=== PATIENT | female | born 1945 | race Two or more races ===

== ENCOUNTER 2019-11-21 22:49 | Inpatient (IN) | payer MEDICARE, MEDICAID ==
[~2019-11-21] VITALS: Ht 152.4 cm; Wt 68.8 kg
[2019-11-21 23:05] VITALS: BP 141/49
--- NOTE | 2019-11-21 23:05 | NUR ---
ED Nurse Note: pt walked into ED from home c/o chest pressure, pt denies chest pain and states feeling "generaly ill" since this morning. Pt stated she had a fever this morning at home. Pt is AAOx4, breathing even and unlabored, vital signs stable as documented.
[2019-11-21] MEDS ORDERED: Aspirin Baby 81mg ORAL ONE (23:15)
--- NOTE | 2019-11-21 23:20 | NUR ---
ED Nurse Note: blood sent to lab
[2019-11-21 23:50] LABS: BASOPHILS % (AUTO) 0.8 % (0.0-2.0); EOSINOPHILS % (AUTO) 1.5 % (0.0-3.0); HEMATOCRIT 26.1 % (37.0-47.0); HEMOGLOBIN 9.2 G/DL (12.0-16.0); LYMPHOCYTES % (AUTO) 8.8 % (20.0-45.0); MEAN CORPUSCULAR VOLUME 89 FL (80-99); MONOCYTES % (AUTO) 7.9 % (1.0-10.0); PLATELET COUNT 221 K/UL (150-450); RED BLOOD COUNT 2.92 M/UL (4.20-5.40); RED CELL DISTRIBUTION WIDTH 12.7 % (11.6-14.8); WHITE BLOOD COUNT 10.6 K/UL (4.8-10.8)
[2019-11-22 00:01] LABS: CALCIUM 8.7 MG/DL (8.5-10.1); CREATININE 2.4 MG/DL (0.55-1.30); POTASSIUM 4.8 MMOL/L (3.5-5.1)
[2019-11-22 00:05] LABS: ALBUMIN 3.5 G/DL (3.4-5.0); ALBUMIN/GLOBULIN RATIO 0.8 (1.0-2.7); BILIRUBIN,TOTAL 0.6 MG/DL (0.2-1.0)
--- NOTE | 2019-11-22 01:41 | Emergency Room Report ---
History of Present Illness General Chief Complaint: General Complaint Source: Patient Present Illness HPI 74-year-old female with 2 days of substernal chest discomfort. Pain is worse on exertion. Located in substernal region, does not otherwise radiate. Patient says "my chest feels hot." No sick contacts. No fevers, chills, palpitations, back pain, abdominal pain, nausea, vomiting, diarrhea, dysuria. Pain is sharp in nature. 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 COVID-19 Screening: Negative COVID-19 COVID-19 Testing Source: kerri Patient History Now: No Nursing Documentation-[facility] Past Medical History: No History, Except For Hx Hypertension: Yes Hx Diabetes: Yes Review of Systems All Other Systems: negative except mentioned in HPI Physical Exam Vital Signs Date Time Temp Pulse Resp B/P (MAP) Pulse Ox O2 Delivery O2 Flow Rate FiO2 11/21/19 23:01 97.2 72 18 134/53 (80) 90 Room Air Sp02 EP Interpretation: reviewed, normal General Appearance: no apparent distress, alert, GCS 15, non-toxic Head: normocephalic, atraumatic Eyes: bilateral eye normal inspection, bilateral eye PERRL ENT: hearing grossly normal, normal pharynx, no angioedema, normal voice Neck: full range of motion, supple/symm/no masses Respiratory: chest non-tender, lungs clear, normal breath sounds, speaking full sentences Cardiovascular #1: regular rate, rhythm, no edema Cardiovascular #2: 2+ carotid (R), 2+ carotid (L), 2+ radial (R), 2+ radial (L), 2+ dorsalis pedis (R), 2+ dorsalis pedis (L) Gastrointestinal: normal bowel sounds, non tender, soft, non-distended, no guarding, no rebound Rectal: deferred Genitourinary: normal inspection, no CVA tenderness Musculoskeletal: back normal, normal range of motion, calf tenderness, gait/station normal, non-tender Neurologic: alert, motor strength/tone normal, oriented x3, sensory intact, responsive, speech normal Psychiatric: judgement/insight normal, memory normal, mood/affect normal, no suicidal/homicidal ideation Reflexes: 3+ bicep (R), 3+ bicep (L), 3+ tricep (R), 3+ tricep (L), 3+ knee (R), 3+ knee (L) Lymphatic: no adenopathy Medical Decision Making Diagnostic Impression: Primary Impression: Chest pain Additional Impression: NIKI (acute kidney injury) ER Course EKG: NSR, no ischemia, intervals WNL. No ectopy Rhythm strip: patient monitored for arrhythmias - no malignant dysrhythmias, runs of PVCs, nor pauses noted Chest x-ray: No infiltrate/effusion. Mediastinum within normal limits. Indication chest pain Laboratory Tests Test 11/21/19 23:20 White Blood Count 10.6 K/UL (4.8-10.8) Red Blood Count 2.92 M/UL (4.20-5.40) L Hemoglobin 9.2 G/DL (12.0-16.0) L Hematocrit 26.1 % (37.0-47.0) L Mean Corpuscular Volume 89 FL (80-99) Mean Corpuscular Hemoglobin 31.6 PG (27.0-31.0) H Mean Corpuscular Hemoglobin Concent 35.4 G/DL (32.0-36.0) Red Cell Distribution Width 12.7 % (11.6-14.8) Platelet Count 221 K/UL (150-450) Mean Platelet Volume 6.2 FL (6.5-10.1) L Neutrophils (%) (Auto) 81.0 % (45.0-75.0) H Lymphocytes (%) (Auto) 8.8 % (20.0-45.0) L Monocytes (%) (Auto) 7.9 % (1.0-10.0) Eosinophils (%) (Auto) 1.5 % (0.0-3.0) Basophils (%) (Auto) 0.8 % (0.0-2.0) Sodium Level 138 MMOL/L (136-145) Potassium Level 4.8 MMOL/L (3.5-5.1) Chloride Level 105 MMOL/L (98-107) Carbon Dioxide Level 19 MMOL/L (21-32) L Anion Gap 14 mmol/L (5-15) Blood Urea Nitrogen 48 mg/dL (7-18) H Creatinine 2.4 MG/DL (0.55-1.30) H Estimated Glomerular Filtration Rate 19.7 mL/min (>60) Glucose Level 228 MG/DL (74-106) H Calcium Level 8.7 MG/DL (8.5-10.1) Total Bilirubin 0.6 MG/DL (0.2-1.0) Aspartate Amino Transferase (AST) 16 U/L (15-37) Alanine Aminotransferase (ALT) 16 U/L (12-78) Alkaline Phosphatase 98 U/L (46-116) Troponin I 0.000 ng/mL (0.000-0.056) Total Protein 7.7 G/DL (6.4-8.2) Albumin 3.5 G/DL (3.4-5.0) Globulin 4.2 g/dL Albumin/Globulin Ratio 0.8 (1.0-2.7) L Microbiology Date/Time Source Procedure Growth Status 11/21/19 23:30 Nasopharynx SARS-CoV-2 RdRp Gene Assay - Final Complete 74-year-old female here with chest discomfort. Patient had evidence of acute kidney injury on her CMP. Creatinine was elevated 2.4, and patient was unaware of what her normal baseline creatinine level is. Last lab result in this medical record system was from 7 years ago, and at that time the patient had normal BUN and creatinine. Electrolytes largely unremarkable. Troponin negative. EKG normal. Chest x-ray unremarkable. Patient was given aspirin in the emergency department. She was given gentle fluid hydration at 100 cc/h. Patient admitted to telemetry in stable condition. Last Vital Signs Date Time Temp Pulse Resp B/P (MAP) Pulse Ox O2 Delivery O2 Flow Rate FiO2 11/21/19 23:05 68 20 11/21/19 23:05 98.7 141/49 100 Room Air Referrals: Morro Rodríguez MD (PCP) Rudolph Capone M.D. Nov 22, 2019 01:41
[2019-11-22 02:03] VITALS: BP 138/48
--- NOTE | 2019-11-22 02:03 | NUR ---
ED Nurse Note: pt resting in bed with eyes closed, no acute distress noted. Breathing even and unlabored, vital signs stable.
--- NOTE | 2019-11-22 02:09 | NUR ---
ED Nurse Note: attempted to call manufacturing technology analyst for CXR, no answer. Charge nurse aware.
[2019-11-22] MEDS ORDERED: Azithromycin 500 MG in NS 275 ML IV ONE (02:15)
[2019-11-22] MEDS ORDERED: cefTRIAXone 1 GM in NS 55 ML IVPB ONE (02:15)
--- NOTE | 2019-11-22 02:46 | NUR ---
ED Nurse Note: cultures and urine sent to lab
[2019-11-22] MEDS ORDERED: GLIPIZIDE5 MG ORAL (02:55)
[2019-11-22] MEDS ORDERED: HYDRALAZINE HC100 MG ORAL (02:55)
[2019-11-22] MEDS ORDERED: GLIMEPIRIDE4 MG ORAL (02:55)
[2019-11-22] MEDS ORDERED: MULTIVITAMINS1 EAC2 ORAL (02:55)
[2019-11-22] MEDS ORDERED: JANUVIA25 MG ORAL (02:55)
[2019-11-22] MEDS ORDERED: STARLIX60 MG ORAL (02:55)
[2019-11-22] MEDS ORDERED: VITAMIN C500 M1 ORAL (02:55)
[2019-11-22] MEDS ORDERED: CALCIUM 500 +1 EAC5 PO (02:55)
[2019-11-22] MEDS ORDERED: AMLODIPINE BESYL5 MG ORAL (02:55)
--- NOTE | 2019-11-22 03:13 | NUR ---
ED Nurse Note: Report given to DARIUS Mcguire in 2E.
--- NOTE | 2019-11-22 03:40 | NUR ---
ED Nurse Note: pt transported to 2E in stable condition, accompanied by Jackie, RN and Jael RN.
[2019-11-22 03:45] VITALS: BP 139/56
--- NOTE | 2019-11-22 03:45 | NUR ---
NURSE NOTES: Report received from Jael ED RN. Patient was able to walk to the bathroom with assistance when she was brought to the. Patient is alert and oriented x4 is Belarusian speaking only and is able to make need known. Patient is in stable condition, no acute distress noted at this time. Patient is reporting discomfort of the chest. IV site it left AC 20G S/L at this time; patent and flushed. No bleed or erythema noted. Patient is sating 95% on room air. Patient was placed on the 5 lead manager monitoring and is running Sinus Rhythm at this time. Patient needs assistants when walking but is able to use the bathroom. Placed patient of fall precautions: yellow socks and gown, bed in lowest position, bed is locked. Bed alarm is on. belonging and call light with in reach. Patient educated to use call light for assistance and before getting up. Will call Dr. Rodríguez for admission orders. Will continue to monitor patient.
[2019-11-22] MEDS ORDERED: ASPIRIN EC500 M1 ORAL (04:15)
--- NOTE | 2019-11-22 04:27 | NUR ---
NURSE NOTES: Left message for Dr. Rodríguez requesting admission order. Awaiting call back. Will continue to monitor patient.
--- NOTE | 2019-11-22 04:55 | NUR ---
NURSE NOTES: Left second message for Dr. Rodríguez requesting admission order. Awaiting call back. Will continue to monitor patient. Addendum: 11/22/19 at 0548 by Shayla Pope RN Wrong time stamp.
--- NOTE | 2019-11-22 05:47 | NUR ---
NURSE NOTES: Left second message for Dr. Rodríguez requesting admission order. Awaiting call back. Will continue to monitor patient.
--- NOTE | 2019-11-22 06:50 | NUR ---
NURSE NOTES: Left 3rd message for Dr. Rodríguez requesting admission order. Awaiting call back. Will continue to monitor patient.
--- NOTE | 2019-11-22 07:30 | NUR ---
NURSE NOTES: pt in bed awake and alert, no complains of chest pain in room air. pt is eating. pt is on ticket manager no signs of cardiac or respiratory distress at this time. Bed is locked and in lowest position. call light next to pt. will continuer to monitor pt.
--- NOTE | 2019-11-22 07:30 | NUR ---
NURSE NOTES: Admission orders received from Dr. Rodríguez. Noted and cared out.
--- NOTE | 2019-11-22 07:45 | NUR ---
NURSE HAND-OFF REPORT: Important Events on Shift: Patient was admitted to [facility] for chest pain. Patient Status: Stable Diet: Cardiac/ diabetic ([facility]) Pending Orders: Pending Results/Labs: Pending MD notification: Latest Vital Signs: Temperature 97.7 , Pulse 67 , B/P 139 /56 , Respiratory Rate 16 , O2 SAT 95 , Room Air, O2 Flow Rate . Vital Sign Comment: EKG Rhythm: Sinus Rhythm Rhythm change?: N MD Notified?: N - MD Response: Latest Santiago Fall Score: 45 Fall Risk: High Risk Safety Measures: Call light Within Reach, Bed Alarm Zone 2, Side Rails Side Rails x2, Bed position Low and Locked. Fall Precautions: Yellow Socks Yellow Gown Door Sign Patient Fall Education Report given to Hermila MCCOY .
[2019-11-22 08:00] VITALS: BP 144/56
--- NOTE | 2019-11-22 08:06 | NUR ---
NURSE HAND-OFF REPORT: Important Events on Shift: Patient was admitted to [facility] for chest pain. Patient Status: Stable Diet: Cardiac/ diabetic Pending Orders: Pending Results/Labs: Pending MD notification: Latest Vital Signs: Temperature 97.7 , Pulse 67 , B/P 139 /56 , Respiratory Rate 16 , O2 SAT 95 , Room Air, O2 Flow Rate . Vital Sign Comment: EKG Rhythm: Sinus Rhythm Rhythm change?: N MD Notified?: N - MD Response: Latest Santiago Fall Score: 45 Fall Risk: High Risk Safety Measures: Call light Within Reach, Bed Alarm Zone 2, Side Rails Side Rails x2, Bed position Low and Locked. Fall Precautions: Yellow Socks Yellow Gown Door Sign Patient Fall Education Report given to . Addendum: 11/22/19 at 0811 by Shayla Pope RN Wrong time.
[2019-11-22] MEDS ORDERED: Tylenol #3 tab (300mg/30mg) ORAL PRN (08:30)
[2019-11-22] MEDS: Glimepiride 4mg tab ORAL SCH ×2 (10:15→18:45)
[2019-11-22] MEDS: sitaGLIPtin 25mg tab ORAL SCH (10:16)
[2019-11-22] MEDS: Heparin 5000 units/ml inj SUBQ SCH ×2 (10:17→22:24)
--- NOTE | 2019-11-22 10:45 | Consultation ---
Consult Note Consult Note Asked to evaluate the patient at the request of Dr. Rodríguez for renal failure 74-year-old female with 2 days of substernal chest discomfort. Pain is worse on exertion. Located in substernal region, does not otherwise radiate. Patient says "my chest feels hot." No sick contacts. No fevers, chills, palpitations, back pain, abdominal pain, nausea, vomiting, diarrhea, dysuria. Pain is sharp in nature. 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 NECK: Supple. No jugular venous distention. LUNGS: Clear to auscultation and percussion. CARDIAC: S1 is normal. S2 is normal. Regular rate and rhythm. No heaves, thrills, gallops, or rubs are noted. ABDOMEN: Soft. There is some tenderness to deep palpation in the epigastric area. No guarding. No rigidity. No rebound tenderness. EXTREMITIES: There is no edema. NEUROLOGICAL: She is awake, alert, responsive. LABORATORY AND DIAGNOSTIC DATA: White count was 10.6, up to 11.3; hemoglobin of 9.2, down to 9.0; and platelet count of 221, down to 213. Moderate normocytic normochromic anemia that is what the pathologist read. Sedimentation rate was 126, retic count of 1. Sodium was 138, potassium 4.8, chloride 105, bicarb 19, BUN of 48, creatinine 2.4, and glucose of 228. All 3 sets of cardiac enzymes since admission have been negative. ProBNP of 1600. Total protein is 7.7, albumin of 3.5. Coags, INR 1 and PTT of 37. Urinalysis is suggestive of too numerous to count wbc's and 0 to 2 rbcs, 2+ leukocyte esterase, and sodium of 94. INR 1, PTT of 37. A chest x-ray performed in the emergency room on the 6th showed cardiomegaly, bilateral right greater than left interstitial and intersperse edema versus infiltrate. Renal ultrasound was performed showed essentially unremarkable examination and an echocardiogram that was performed showed normal wall motion, ejection fraction of 60%, and moderate to severe mitral annular calcifications, aortic root calcification, mild mitral regurgitation, peak mitral valve gradient of 25 and mean of 7, and pulmonary systolic pressure of 57. . Assessment/Plan Renal failure, most likely acute on chronic Rule out diabetic nephropathy Diabetes mellitus Coronary artery disease Anemia, related to kidney disease and or iron deficiency Kidney ultrasound Urine analysis Urine spot electrolyte Anemia work-up Monitor renal parameters Avoid nephrotoxic's Austin Malone MD Nov 22, 2019 10:45
--- NOTE | 2019-11-22 11:13 | Consultation ---
History of Present Illness General Date patient seen: Nov 22, 2019 Chief Complaint: General Complaint Present Illness HPI 74-year-old female with PMHx of DM, HTN, CHF presented to ER with CC of 2 days of substernal chest discomfort, worse on exertion, substernal region, does not otherwise radiate. Patient says "my chest feels hot." No sick contacts. She was afebrile in ER, her CXR showed interstitial infiltrate at RLL with cardiomegaly. She is admitted to telemetry for further management. Allergies: Coded Allergies: No Known Allergies (Unverified , 11/21/19) Medication History Scheduled Amlodipine Besylate* (Amlodipine Besylate*), 5 MG ORAL DAILY, (Reported) Ascorbic Acid* (Vitamin C*), 1,000 MG ORAL DAILY, (Reported) Aspirin (Aspirin Ec), 81 MG ORAL DAILY, (Reported) Glimepiride* (Glimepiride*), 4 MG ORAL BID, (Reported) Glipizide* (Glipizide*), 5 MG ORAL BIDAC, (Reported) Hydralazine Hcl* (Hydralazine Hcl*), 100 MG ORAL TID, (Reported) Multivitamins* (Multivitamins*), 1 TAB ORAL DAILY, (Reported) Nateglinide* (Starlix*), 120 MG ORAL THREE TIMES A DAY, (Reported) Sitagliptin* (Januvia*), 50 MG ORAL DAILY, (Reported) Miscellaneous Medications Calcium Carbonate/Vitamin D3 (Calcium 500 + Vit D 200 Tablet), 1 EACH PO, (Reported) Patient History Healthcare decision maker Resuscitation status Advanced Directive on File Past Medical/Surgical History Past Medical/Surgical History: (1) History of hypertension (2) History of diabetes mellitus Review of Systems Cardiovascular: Reports: chest pain All Other Systems: negative except mentioned in HPI Physical Exam General Appearance: WD/WN Lines, tubes and drains: peripheral HEENT: normocephalic, atraumatic Neck: non-tender, normal alignment, supple, normal inspection Respiratory/Chest: chest wall non-tender, lungs clear, normal breath sounds, rhonchi - right Breasts: no masses Cardiovascular/Chest: normal peripheral pulses, normal rate, regularly irregular Abdomen: normal bowel sounds, non tender Genitourinary/Rectal: normal genital exam, normal rectal exam Extremities: normal range of motion, non-tender, normal inspection Neurologic: patient intake representative II-XII grossly normal Last 24 Hour Vital Signs Date Time Temp Pulse Resp B/P (MAP) Pulse Ox O2 Delivery O2 Flow Rate FiO2 11/22/19 10:16 77 144/56 11/22/19 08:00 96.8 77 21 144/56 (85) 97 11/22/19 08:00 75 11/22/19 04:30 Room Air 11/22/19 03:45 97.7 67 16 139/56 (83) 95 11/22/19 03:45 67 11/22/19 03:40 98.7 74 18 141/68 100 Room Air 11/22/19 02:03 98.1 76 18 138/48 100 Room Air 11/21/19 23:05 68 20 11/21/19 23:05 98.7 68 16 141/49 100 Room Air 11/21/19 23:01 97.2 72 18 134/53 (80) 90 Room Air Intake and Output 11/21/19 11/22/19 19:00 07:00 Intake Total 100 ml Balance 100 ml Intake IV Total 100 ml # Voids 3 Laboratory Tests Test 11/21/19 23:20 11/22/19 02:11 White Blood Count 10.6 K/UL (4.8-10.8) Red Blood Count 2.92 M/UL (4.20-5.40) L Hemoglobin 9.2 G/DL (12.0-16.0) L Hematocrit 26.1 % (37.0-47.0) L Mean Corpuscular Volume 89 FL (80-99) Mean Corpuscular Hemoglobin 31.6 PG (27.0-31.0) H Mean Corpuscular Hemoglobin Concent 35.4 G/DL (32.0-36.0) Red Cell Distribution Width 12.7 % (11.6-14.8) Platelet Count 221 K/UL (150-450) Mean Platelet Volume 6.2 FL (6.5-10.1) L Neutrophils (%) (Auto) 81.0 % (45.0-75.0) H Lymphocytes (%) (Auto) 8.8 % (20.0-45.0) L Monocytes (%) (Auto) 7.9 % (1.0-10.0) Eosinophils (%) (Auto) 1.5 % (0.0-3.0) Basophils (%) (Auto) 0.8 % (0.0-2.0) Sodium Level 138 MMOL/L (136-145) Potassium Level 4.8 MMOL/L (3.5-5.1) Chloride Level 105 MMOL/L (98-107) Carbon Dioxide Level 19 MMOL/L (21-32) L Anion Gap 14 mmol/L (5-15) Blood Urea Nitrogen 48 mg/dL (7-18) H Creatinine 2.4 MG/DL (0.55-1.30) H Estimat Glomerular Filtration Rate 19.7 mL/min (>60) Glucose Level 228 MG/DL (74-106) H Calcium Level 8.7 MG/DL (8.5-10.1) Total Bilirubin 0.6 MG/DL (0.2-1.0) Aspartate Amino Transf (AST/SGOT) 16 U/L (15-37) Alanine Aminotransferase (ALT/SGPT) 16 U/L (12-78) Alkaline Phosphatase 98 U/L (46-116) Troponin I 0.000 ng/mL (0.000-0.056) Total Protein 7.7 G/DL (6.4-8.2) Albumin 3.5 G/DL (3.4-5.0) Globulin 4.2 g/dL Albumin/Globulin Ratio 0.8 (1.0-2.7) L Pro-B-Type Natriuretic Peptide 66042 pg/mL (0-125) H Microbiology Date/Time Source Procedure Growth Status 11/21/19 23:30 Nasopharynx SARS-CoV-2 RdRp Gene Assay - Final Complete Height (Feet): 5 Height (Inches): 0.00 Weight (Pounds): 145 Medications Current Medications Medications (Trade) Dose Ordered Sig/Rosetta Route PRN Reason Start Time Stop Time Status Last Admin Dose Admin Acetaminophen (Tylenol) 650 mg Q4H PRN ORAL Mild Pain(Pain Scale 1-3)fever 11/22/19 08:30 12/22/19 08:29 Acetaminophen/ Codeine Phosphate (Tylenol #3) 1 tab Q6H PRN ORAL Severe Pain (Pain Scale 7-10) 11/22/19 08:30 11/29/19 08:29 11/22/19 10:25 Amlodipine Besylate (Norvasc) 5 mg DAILY ORAL 11/22/19 09:00 12/22/19 08:59 11/22/19 10:16 Azithromycin (Zithromax) 250 mg QHS ORAL 11/22/19 21:00 11/29/19 20:59 Ceftriaxone Sodium 1 gm/ Sodium Chloride 50 ml @ 100 mls/hr QHS IVPB 11/22/19 21:00 11/29/19 20:59 Dextrose (Dextrose 50%) 25 ml Q30M PRN IV Hypoglycemia 11/22/19 08:30 02/20/20 08:29 Dextrose (Dextrose 50%) 50 ml Q30M PRN IV Hypoglycemia 11/22/19 08:30 02/20/20 08:29 Glimepiride (AmaryL) 4 mg BID ORAL 11/22/19 09:00 12/22/19 08:59 11/22/19 10:15 Glipizide (Glucotrol) 5 mg BIAC ORAL 11/22/19 11:30 12/22/19 11:29 Heparin Sodium (Porcine) (Heparin 5000 units/ml) 5,000 units EVERY 12 HOURS SUBQ 11/22/19 09:00 01/06/20 08:59 11/22/19 10:17 Hydralazine HCl (Apresoline) 50 mg Q8HR ORAL 11/22/19 14:00 02/20/20 13:59 Insulin Aspart (NovoLOG) BEFORE MEALS AND HS SUBQ 11/22/19 11:30 02/20/20 11:29 Nateglinide (Starlix) 120 mg TIAC ORAL 11/22/19 11:30 12/22/19 11:29 Ondansetron HCl (Zofran) 4 mg Q4H PRN IVP Nausea & Vomiting 11/22/19 08:30 12/22/19 08:29 Sitagliptin Phosphate (Januvia) 25 mg DAILY ORAL 11/22/19 09:00 12/22/19 08:59 11/22/19 10:16 Sodium Chloride 1,000 ml @ 100 mls/hr Q10H IV 11/22/19 01:45 12/22/19 01:44 11/22/19 01:46 Assessment/Plan Problem List: (1) ACS (acute coronary syndrome) ICD Codes: I24.9 - Acute ischemic heart disease, unspecified SNOMED: 293097365 (2) Community acquired pneumonia ICD Codes: J18.9 - Pneumonia, unspecified organism SNOMED: 917633060 (3) Acute on chronic renal insufficiency ICD Codes: N28.9 - Disorder of kidney and ureter, unspecified; N18.9 - Chronic kidney disease, unspecified SNOMED: 949330536, 902528787 (4) History of hypertension ICD Codes: Z86.79 - Personal history of other diseases of the circulatory system SNOMED: 415377397 (5) History of diabetes mellitus ICD Codes: Z86.39 - Personal history of other endocrine, nutritional and metabolic disease SNOMED: 760277921 Assessment/Plan: serial ekg, troponin Echocardiogram cardiology to see sputum induction titrate fio2 to sat of 92% antitussives symptomatic treatment sliding scale diabetic diet Rodrigo Marroquin MD Nov 22, 2019 11:13
[2019-11-22] MEDS ORDERED: Promethazine/Codeine 5ml UD ORAL PRN (11:15)
[2019-11-22 12:00] VITALS: BP 160/62
--- NOTE | 2019-11-22 12:11 | History & Physical ---
History and Physical History & Physicial Dictated for Int Med-D [facility] no. [id number]. Tony Reyes MD Nov 22, 2019 12:11
--- NOTE | 2019-11-22 12:18 | Consultation ---
History of Present Illness General Date patient seen: Nov 22, 2019 Chief Complaint: General Complaint Present Illness HPI 74 y/o F with hx of DM2, HTN, CHF, CAD presented to ED on 11/20 with 2 days of substernal chest pain worse with exertion (non radiating). Had subjective fever and sore throat at home. Denied sick contacts, f/c, back pain, abd pain, n/v/d, dysuria. Allergies: Coded Allergies: No Known Allergies (Unverified , 11/21/19) Medication History Scheduled Amlodipine Besylate* (Amlodipine Besylate*), 5 MG ORAL DAILY, (Reported) Ascorbic Acid* (Vitamin C*), 1,000 MG ORAL DAILY, (Reported) Aspirin (Aspirin Ec), 81 MG ORAL DAILY, (Reported) Glimepiride* (Glimepiride*), 4 MG ORAL BID, (Reported) Glipizide* (Glipizide*), 5 MG ORAL BIDAC, (Reported) Hydralazine Hcl* (Hydralazine Hcl*), 100 MG ORAL TID, (Reported) Multivitamins* (Multivitamins*), 1 TAB ORAL DAILY, (Reported) Nateglinide* (Starlix*), 120 MG ORAL THREE TIMES A DAY, (Reported) Sitagliptin* (Januvia*), 50 MG ORAL DAILY, (Reported) Miscellaneous Medications Calcium Carbonate/Vitamin D3 (Calcium 500 + Vit D 200 Tablet), 1 EACH PO, (Reported) Patient History Healthcare decision maker Resuscitation status Advanced Directive on File Patient History Narrative Pmhx: as above Shx: reviewed Fhx: non contributory Physical Exam Physical Exam Narrative General Appearance: WD/WN Lines, tubes and drains: peripheral HEENT: normocephalic, atraumatic Neck: non-tender, normal alignment, supple, normal inspection Respiratory/Chest: chest wall non-tender, lungs clear, normal breath sounds, rhonchi - right Cardiovascular/Chest: normal peripheral pulses, normal rate, regularly irregular Abdomen: normal bowel sounds, non tender Last 24 Hour Vital Signs Date Time Temp Pulse Resp B/P (MAP) Pulse Ox O2 Delivery O2 Flow Rate FiO2 11/22/19 10:16 77 144/56 11/22/19 08:00 96.8 77 21 144/56 (85) 97 11/22/19 08:00 75 11/22/19 04:30 Room Air 11/22/19 03:45 97.7 67 16 139/56 (83) 95 11/22/19 03:45 67 11/22/19 03:40 98.7 74 18 141/68 100 Room Air 11/22/19 02:03 98.1 76 18 138/48 100 Room Air 11/21/19 23:05 68 20 11/21/19 23:05 98.7 68 16 141/49 100 Room Air 11/21/19 23:01 97.2 72 18 134/53 (80) 90 Room Air Intake and Output 11/21/19 11/22/19 19:00 07:00 Intake Total 100 ml Balance 100 ml Intake IV Total 100 ml # Voids 3 Laboratory Tests Test 11/21/19 23:20 11/22/19 02:11 White Blood Count 10.6 K/UL (4.8-10.8) Red Blood Count 2.92 M/UL (4.20-5.40) L Hemoglobin 9.2 G/DL (12.0-16.0) L Hematocrit 26.1 % (37.0-47.0) L Mean Corpuscular Volume 89 FL (80-99) Mean Corpuscular Hemoglobin 31.6 PG (27.0-31.0) H Mean Corpuscular Hemoglobin Concent 35.4 G/DL (32.0-36.0) Red Cell Distribution Width 12.7 % (11.6-14.8) Platelet Count 221 K/UL (150-450) Mean Platelet Volume 6.2 FL (6.5-10.1) L Neutrophils (%) (Auto) 81.0 % (45.0-75.0) H Lymphocytes (%) (Auto) 8.8 % (20.0-45.0) L Monocytes (%) (Auto) 7.9 % (1.0-10.0) Eosinophils (%) (Auto) 1.5 % (0.0-3.0) Basophils (%) (Auto) 0.8 % (0.0-2.0) Sodium Level 138 MMOL/L (136-145) Potassium Level 4.8 MMOL/L (3.5-5.1) Chloride Level 105 MMOL/L (98-107) Carbon Dioxide Level 19 MMOL/L (21-32) L Anion Gap 14 mmol/L (5-15) Blood Urea Nitrogen 48 mg/dL (7-18) H Creatinine 2.4 MG/DL (0.55-1.30) H Estimat Glomerular Filtration Rate 19.7 mL/min (>60) Glucose Level 228 MG/DL (74-106) H Calcium Level 8.7 MG/DL (8.5-10.1) Total Bilirubin 0.6 MG/DL (0.2-1.0) Aspartate Amino Transf (AST/SGOT) 16 U/L (15-37) Alanine Aminotransferase (ALT/SGPT) 16 U/L (12-78) Alkaline Phosphatase 98 U/L (46-116) Troponin I 0.000 ng/mL (0.000-0.056) Total Protein 7.7 G/DL (6.4-8.2) Albumin 3.5 G/DL (3.4-5.0) Globulin 4.2 g/dL Albumin/Globulin Ratio 0.8 (1.0-2.7) L Pro-B-Type Natriuretic Peptide 98914 pg/mL (0-125) H Microbiology Date/Time Source Procedure Growth Status 11/21/19 23:30 Nasopharynx SARS-CoV-2 RdRp Gene Assay - Final Complete Height (Feet): 5 Height (Inches): 0.00 Weight (Pounds): 145 Medications Current Medications Medications (Trade) Dose Ordered Sig/Rosetta Route PRN Reason Start Time Stop Time Status Last Admin Dose Admin Acetaminophen (Tylenol) 650 mg Q4H PRN ORAL Mild Pain(Pain Scale 1-3)fever 11/22/19 08:30 12/22/19 08:29 Acetaminophen/ Codeine Phosphate (Tylenol #3) 1 tab Q6H PRN ORAL Severe Pain (Pain Scale 7-10) 11/22/19 08:30 11/29/19 08:29 11/22/19 10:25 Amlodipine Besylate (Norvasc) 5 mg DAILY ORAL 11/22/19 09:00 12/22/19 08:59 11/22/19 10:16 Azithromycin (Zithromax) 250 mg QHS ORAL 11/22/19 21:00 11/29/19 20:59 Ceftriaxone Sodium 1 gm/ Sodium Chloride 50 ml @ 100 mls/hr QHS IVPB 11/22/19 21:00 11/29/19 20:59 Dextrose (Dextrose 50%) 25 ml Q30M PRN IV Hypoglycemia 11/22/19 08:30 02/20/20 08:29 Dextrose (Dextrose 50%) 50 ml Q30M PRN IV Hypoglycemia 11/22/19 08:30 02/20/20 08:29 Glimepiride (AmaryL) 4 mg BID ORAL 11/22/19 09:00 12/22/19 08:59 11/22/19 10:15 Glipizide (Glucotrol) 5 mg BIAC ORAL 11/22/19 11:30 12/22/19 11:29 Heparin Sodium (Porcine) (Heparin 5000 units/ml) 5,000 units EVERY 12 HOURS SUBQ 11/22/19 09:00 01/06/20 08:59 11/22/19 10:17 Hydralazine HCl (Apresoline) 50 mg Q8HR ORAL 11/22/19 14:00 02/20/20 13:59 Insulin Aspart (NovoLOG) BEFORE MEALS AND HS SUBQ 11/22/19 11:30 02/20/20 11:29 Nateglinide (Starlix) 120 mg TIAC ORAL 11/22/19 11:30 12/22/19 11:29 Ondansetron HCl (Zofran) 4 mg Q4H PRN IVP Nausea & Vomiting 11/22/19 08:30 12/22/19 08:29 Promethazine HCl/ Codeine (Phenergan with Codeine) 5 ml Q4H PRN ORAL For Cough 11/22/19 11:15 12/22/19 11:14 Sitagliptin Phosphate (Januvia) 25 mg DAILY ORAL 11/22/19 09:00 12/22/19 08:59 11/22/19 10:16 Assessment/Plan Assessment/Plan: Abx: Ceftriaxone 11/21- Azithromycin 11/21- Assessment: COVID19 neg x1 (11/20 Rapid COVID PCR neg) CAP -11/20 CXR: per ER report, official report is pending: right lower lobe infiltrate versus possible pulmonary vascular congestion Afebrile No leukocytosis Chest pain NIKI DM2 HTN CHF CAD Plan: -Continue empiric Ceftriaxone and Azithromycin #1 -f/u cx -Monitor CBC/CMP, temperatures -COVID19 isolation and testing; send 2nd covid test -f.u official CXR report Thank you for this consultation. Will continue to follow along with you. Discussed with DARIUS. Hortensia Hoffman M.D. Nov 22, 2019 12:18
[2019-11-22] MEDS: GlipiZIDE 5mg tab ORAL SCH ×2 (12:31→16:57)
[2019-11-22] MEDS: NovoLOG Insulin Flexpen SUBQ SCH ×3 (12:32→22:26)
--- NOTE | 2019-11-22 13:00 | History and Physical Report ---
DATE OF ADMISSION: 11/22/2019 CHIEF COMPLAINT: The patient is a 74-year-old female, who presents with a chief complaint of chest pain. HISTORY OF PRESENT ILLNESS: Began two days prior to admission. The patient began to experience chest pain. Chest pain is substernal. The patient states her chest "feels hot." The patient presented through [facility] emergency room. The patient was found to be in acute renal failure. The patient's BNP was found to be elevated greater than 16,000. The patient is admitted with chest pain to rule out acute coronary syndrome. REVIEW OF SYSTEMS: CONSTITUTIONAL: The patient denies weight loss or weight gain. The patient denies fevers or chills. HEENT: The patient denies ear or throat pain. The patient denies headache. CARDIOVASCULAR: The patient complains of chest pain as above. The patient denies palpitations. ABDOMEN: The patient denies nausea, vomiting, diarrhea, or constipation. GENITOURINARY: The patient denies dysuria or increased frequency of urination. NEUROMUSCULAR: The patient denies seizures or generalized weakness. PAST MEDICAL HISTORY: Significant for: 1. Hypertension. 2. Diabetes type 2. PAST SURGICAL HISTORY: The patient denies. CURRENT MEDICATIONS: 1. Amlodipine 5 mg one tablet p.o. daily. 2. Vitamin C 1000 mg p.o. daily. 3. Aspirin 81 mg p.o. daily. 4. Calcium plus vitamin D one tablet p.o. daily. 5. Glimepiride 4 mg p.o. twice daily. 6. Glipizide 5 mg p.o. twice daily. 7. Hydralazine 100 mg p.o. three times daily. 8. Multivitamin one tablet p.o. daily. 9. Starlix 120 mg p.o. three times daily. 10. Januvia 50 mg p.o. daily. ALLERGIES: No known drug allergies. SOCIAL HISTORY: The patient is single. The patient denies tobacco or alcohol use. PHYSICAL EXAMINATION: VITAL SIGNS: Temperature 97.2, respirations 18, pulse 72, blood pressure 134/53. GENERAL: The patient is a well-developed and well-nourished female, no apparent distress. HEENT: Eyes, pupils equal and responsive to light and accommodation. Extraocular movements are intact. NECK: Supple without lymphadenopathy. CHEST: Lungs are clear to auscultation bilaterally without wheezes or rales. CARDIOVASCULAR: Regular rhythm and rate. S1, S2 are normal without murmurs, rubs, or gallops. ABDOMEN: Soft, nontender, and nondistended. Positive bowel sounds. No evidence of hepatosplenomegaly. Currently, no rebound or guarding noted. EXTREMITIES: Negative for clubbing, cyanosis, or edema. RECTAL: Not performed. GENITAL: Not performed. NEUROLOGIC: Cranial nerves II through XII are grossly intact without focal deficits. Motor strength is 5/5 bilaterally. Deep tendon reflexes are 2+, plantar. LABORATORY STUDIES: WBC 10.6, hemoglobin 9.2, hematocrit 26.1, platelets 221,000. Sodium 138, potassium 4.8, chloride 105, CO2 19, BUN 48, creatinine 2.4, glucose 228. BNP elevated at 16,712. Troponin normal at 0.0. Chest x-ray was reported as right lower lobe infiltrate. ASSESSMENT: This is a 74-year-old female: 1. Chest pain. 2. Right lower lobe pneumonia. 3. Congestive heart failure. 4. Renal failure. 5. Hypertension. 6. Diabetes type 2. TREATMENT: 1. Chest pain/congestive heart failure. Cardiology consultation has been obtained with Dr. Pool Santana. Serial troponin levels will be performed. The patient's current BNP is greater than 16,000. An echocardiogram is pending. Follow recommendations of Cardiology. 2. Right lower lobe pneumonia. Pulmonary consultation has been obtained with Dr. Rodrigo Marroquin. The patient has been started empirically on azithromycin and ceftriaxone. Follow recommendations of Pulmonary. 3. Renal failure. A Nephrology consultation has been obtained with Dr. Austin Malone. Follow recommendations of Dr. Malone. Renal failure may be secondary to long-standing diabetes versus acute on chronic renal failure. 4. Hypertension. Continue hydralazine and amlodipine as above. 5. Diabetes type 2. NovoLog sliding scale has been instituted. Tony Reyes M.D. DR: YESSY JOB#: [id number] CC:
[2019-11-22 13:17] LABS: HEMATOCRIT 26.5 % (37.0-47.0); MEAN CORPUSCULAR VOLUME 90 FL (80-99); PLATELET COUNT 213 K/UL (150-450); RED BLOOD COUNT 2.93 M/UL (4.20-5.40); RED CELL DISTRIBUTION WIDTH 12.7 % (11.6-14.8); WHITE BLOOD COUNT 11.3 K/UL (4.8-10.8)
[2019-11-22 13:35] LABS: LACTATE DEHYDROGENASE 202 U/L (81-234)
[2019-11-22 14:20] LABS: % IRON SATURATION 5 % (15-50); IRON 10 ug/dL (50-175); TOTAL IRON BINDING CAPACITY 190 ug/dL (250-450)
--- NOTE | 2019-11-22 14:40 | Cardiology Report ---
APPROVED REPORT EXAM: Two-dimensional and M-mode echocardiogram with Doppler and color Doppler. INDICATION Congestive Heart Failure M-Mode DIMENSIONS IVSd1.1 (0.7-1.1cm)Left Atrium (MM)4.2 (1.6-4.0cm) LVDd4.9 (3.5-5.6cm)Aortic Root2.7 (2.0-3.7cm) PWd0.9 (0.7-1.1cm)Aortic Cusp Exc.1.9 (1.5-2.0cm) IVSs1.4 cmEPSS0.6 (>1.0cm) LVDs3.6 (2.5-4.0cm) PWs2.0 cm <Conclusion> Normal left ventricular chamber size, systolic function and wall motion. Left ventricular ejection fraction estimated to be 60 %. No evidence of left ventricular hypertrophy. Anterior Echo-free space, may be due to pericardial fat or effusion. Moderate left atrial enlargement. Mild right atrial enlargement. Right ventricular chamber size is upper normal limits. Focal aortic valve sclerosis with adequate cusp excursion. Thickened mitral valve leaflets with reduced excursion. Moderat-severe mitral annulus calcification. Mild aortic root calcification. Pulmonic valve not well visualized. Normal tricuspid valve structure. IVC at normal size with physiologic collapse. A color flow and spectral Doppler study was performed and revealed: No aortic insufficiency. Mild mitral regurgitation. Peak mitral valve gradient of 25 mmHg and a mean of 7 mmHg. Mitral inflow indicates normal left ventricular diastolic function. Mild tricuspid regurgitation. Tricuspid systolic velocities suggests peak right ventricular systolic pressure of 57 mmHg, consistent with moderate pulmonary hypertension. No pulmonic regurgitation present.
--- NOTE | 2019-11-22 15:18 | NUR ---
CASE MANAGEMENT: REVIEW 74 YEAR OLD FEMALE PRESENTED TO ED FROM HOME CC: CHEST PAIN SI: CHEST PAIN T 97.2 HR 72 RR 18 BP 134/53 SAT 90% ROOM AIR H/H 9.2/26.1 NEUT 81.0 ESR 126 BUN 48 CR 2.4 BNP [id number] CXR-- RIGHT LOWER LOBE INFILTRATE VS POSSIBLE PULMONARY VASCULAR CONGESTION IS: AZITHROMYCIN IV X1 CEFTRIAXONE IV X1 LASIX IV X1 NS IVF BOLUS X1 ASA 162MG PO X1 2D ECHO PATIENT ADMITTED TO TELEMETRY UNIT 11/22/2019 DCP: PATIENT IS FROM HOME
--- NOTE | 2019-11-22 15:40 | Cardiology Report ---
APPROVED REPORT EKG Measurement Heart [id number] <Conclusion> Normal sinus rhythm Normal ECG
[2019-11-22] MEDS: HydrALAZINE 50mg tab ORAL SCH ×2 (15:46→22:23)
[2019-11-22 16:00] VITALS: BP 154/66
[2019-11-22 16:19] LABS: APPEARANCE,URINE SLIGHTLY CLOUDY; BILIRUBIN, URINE NEGATIVE (NEGATIVE); COLOR,URINE PALE YELLOW; GLUCOSE, URINE (UA) 1+ (NEGATIVE); KETONES,URINE NEGATIVE (NEGATIVE); LEUKOCYTE ESTERASE ,URINE 3+ (NEGATIVE); NITRITE,URINE NEGATIVE (NEGATIVE); PH,URINE 5 (4.5-8.0); PROTEIN,URINE 2+ (NEGATIVE); UROBILINOGEN,URINE NORMAL MG/DL (0.0-1.0)
--- NOTE | 2019-11-22 19:30 | NUR ---
NURSE NOTES: Received report from DARIUS Cleaning. Pt in bed, awake, alert, oriented x4, able to make needs known. 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 No c/o pain. IV on right forearm infusing NS at 100cc/hr no s/s infiltration noted. Bed in low position & locked. side rails up x2, bed alarm on. Call light with in reach. Informed pt to use call light when getting out of bed.
--- NOTE | 2019-11-22 19:58 | Cardiology Progress Note ---
Assessment/Plan Assessment/Plan full note to follow lv fxn norl ekg neg echo normal wall motion but pulm htn venous duplex [id number] Objective Last 24 Hour Vital Signs Date Time Temp Pulse Resp B/P (MAP) Pulse Ox O2 Delivery O2 Flow Rate FiO2 11/22/19 17:28 98.9 11/22/19 15:46 160/62 11/22/19 10:16 77 144/56 11/22/19 09:00 Room Air 11/22/19 08:00 96.8 77 21 144/56 (85) 97 11/22/19 08:00 75 11/22/19 04:30 Room Air 11/22/19 03:45 97.7 67 16 139/56 (83) 95 11/22/19 03:45 67 11/22/19 03:40 98.7 74 18 141/68 100 Room Air 11/22/19 02:03 98.1 76 18 138/48 100 Room Air 11/21/19 23:05 68 20 11/21/19 23:05 98.7 68 16 141/49 100 Room Air 11/21/19 23:01 97.2 72 18 134/53 (80) 90 Room Air Intake and Output 11/21/19 11/22/19 19:00 07:00 Intake Total 100 ml Balance 100 ml Intake IV Total 100 ml # Voids 3 Laboratory Tests Test 11/21/19 23:20 11/22/19 02:11 11/22/19 12:45 11/22/19 15:35 White Blood Count 10.6 K/UL (4.8-10.8) 11.3 K/UL (4.8-10.8) H Red Blood Count 2.92 M/UL (4.20-5.40) L 2.93 M/UL (4.20-5.40) L Hemoglobin 9.2 G/DL (12.0-16.0) L 9.0 G/DL (12.0-16.0) L Hematocrit 26.1 % (37.0-47.0) L 26.5 % (37.0-47.0) L Mean Corpuscular Volume 89 FL (80-99) 90 FL (80-99) Mean Corpuscular Hemoglobin 31.6 PG (27.0-31.0) H 30.7 PG (27.0-31.0) Mean Corpuscular Hemoglobin Concent 35.4 G/DL (32.0-36.0) 34.0 G/DL (32.0-36.0) Red Cell Distribution Width 12.7 % (11.6-14.8) 12.7 % (11.6-14.8) Platelet Count 221 K/UL (150-450) 213 K/UL (150-450) Mean Platelet Volume 6.2 FL (6.5-10.1) L 7.0 FL (6.5-10.1) Neutrophils (%) (Auto) 81.0 % (45.0-75.0) H % (45.0-75.0) Lymphocytes (%) (Auto) 8.8 % (20.0-45.0) L % (20.0-45.0) Monocytes (%) (Auto) 7.9 % (1.0-10.0) % (1.0-10.0) Eosinophils (%) (Auto) 1.5 % (0.0-3.0) % (0.0-3.0) Basophils (%) (Auto) 0.8 % (0.0-2.0) % (0.0-2.0) Sodium Level 138 MMOL/L (136-145) Potassium Level 4.8 MMOL/L (3.5-5.1) Chloride Level 105 MMOL/L (98-107) Carbon Dioxide Level 19 MMOL/L (21-32) L Anion Gap 14 mmol/L (5-15) Blood Urea Nitrogen 48 mg/dL (7-18) H Creatinine 2.4 MG/DL (0.55-1.30) H Estimat Glomerular Filtration Rate 19.7 mL/min (>60) Glucose Level 228 MG/DL (74-106) H Calcium Level 8.7 MG/DL (8.5-10.1) Total Bilirubin 0.6 MG/DL (0.2-1.0) Aspartate Amino Transf (AST/SGOT) 16 U/L (15-37) Alanine Aminotransferase (ALT/SGPT) 16 U/L (12-78) Alkaline Phosphatase 98 U/L (46-116) Troponin I 0.000 ng/mL (0.000-0.056) Total Protein 7.7 G/DL (6.4-8.2) Albumin 3.5 G/DL (3.4-5.0) Globulin 4.2 g/dL Albumin/Globulin Ratio 0.8 (1.0-2.7) L Pro-B-Type Natriuretic Peptide 40867 pg/mL (0-125) H Differential Total Cells Counted 100 Neutrophils % (Manual) 91 % (45-75) H Lymphocytes % (Manual) 7 % (20-45) L Monocytes % (Manual) 2 % (1-10) Eosinophils % (Manual) 0 % (0-3) Basophils % (Manual) 0 % (0-2) Band Neutrophils 0 % (0-8) Platelet Estimate Adequate Platelet Morphology Normal Red Blood Cell Morphology Normal Erythrocyte Sedimentation Rate 126 MM/HR (0-30) H Reticulocyte Count 1.0 % (0.5-2.0) Prothrombin Time 11.3 SEC (9.30-11.50) Prothromb Time International Ratio 1.0 (0.9-1.1) Activated Partial Thromboplast Time 37 SEC (23-33) H Iron Level 10 ug/dL (50-175) L Total Iron Binding Capacity 190 ug/dL (250-450) L Percent Iron Saturation 5 % (15-50) L Unsaturated Iron Binding 180 ug/dL (112-346) Lactate Dehydrogenase 202 U/L (81-234) Carcinoembryonic Antigen Pending Vitamin B12 Level 854 PG/ML (193-986) Folate 69.9 NG/ML (8.6-58.9) H Urine Color Pale yellow Urine Appearance Slightly cloudy Urine pH 5 (4.5-8.0) Urine Specific [place] 1.010 (1.005-1.035) Urine Protein 2+ (NEGATIVE) H Urine Glucose (UA) 1+ (NEGATIVE) H Urine Ketones Negative (NEGATIVE) Urine Blood 1+ (NEGATIVE) H Urine Nitrite Negative (NEGATIVE) Urine Bilirubin Negative (NEGATIVE) Urine Urobilinogen Normal MG/DL (0.0-1.0) Urine Leukocyte Esterase 3+ (NEGATIVE) H Urine RBC 0-2 /HPF (0 - 2) Urine WBC Tntc /HPF (0 - 2) H Urine Squamous Epithelial Cells Occasional /LPF Urine Bacteria Occasional /HPF (NONE) Urine Random Sodium 94 mmol/L (20-110) Test 11/22/19 16:45 POC Whole Blood Glucose 319 MG/DL (74-106) H Microbiology Date/Time Source Procedure Growth Status 11/22/19 15:35 Nasopharynx SARS-CoV-2 RdRp Gene Assay - Final Complete 11/21/19 23:30 Nasopharynx SARS-CoV-2 RdRp Gene Assay - Final Complete Pool Santana MD Nov 22, 2019 19:58
[2019-11-22 20:00] VITALS: BP 128/70
--- NOTE | 2019-11-22 20:29 | NUR ---
NURSE HAND-OFF REPORT: Important Events on Shift:pt had temp of 100.6 medication was given Patient Status: full code Diet: cardiac diabetic Pending Orders: sputum and stool still needs to be collected Pending Results/Labs: Pending MD notification: Latest Vital Signs: Temperature 98.9 , Pulse 86 , B/P 154 /66 , Respiratory Rate 17 , O2 SAT 98 , Room Air, O2 Flow Rate . Vital Sign Comment: EKG Rhythm: Sinus Rhythm Rhythm change?: N MD Notified?: N - MD Response: Latest Santiago Fall Score: 45 Fall Risk: High Risk Safety Measures: Call light Within Reach, Bed Alarm Zone 2, Side Rails Side Rails x2, Bed position Low and Locked. Fall Precautions: Y Yellow Gown y Patient Fall Education y Report given to Karin/RN.
--- NOTE | 2019-11-22 20:37 | Diagnostic Imaging Report ---
Indication: Chest pain Technique: One view of the chest Comparison: 09/07/2012 Findings: The heart is enlarged. There is bilateral interstitial and airspace edema versus infiltrate, right greater than left. This is a new finding. Impression: Cardiomegaly Bilateral right greater than left interstitial and airspace edema versus infiltrate
--- NOTE | 2019-11-22 22:20 | Diagnostic Imaging Report ---
Indication: Abnormal renal function tests Technique: Grayscale and duplex images of the kidneys, retroperitoneum, and bladder were obtained. Comparison: none Findings: Right kidney measures 8.6 cm in length. Left kidney measures 10.3 cm in length. Both kidneys demonstrate normal echogenicity. No hydronephrosis. The left kidney demonstrates a small lower pole cyst. Normal inferior vena cava. Bladder is normal. Also noted is a right pleural effusion Impression: Essentially unremarkable exam. Negative for hydronephrosis Incidental finding of left renal cyst.
[2019-11-22] MEDS: Azithromycin 250mg tab ORAL SCH (22:23)
[2019-11-23] VITALS: BP 141/57
[2019-11-23 04:00] VITALS: BP 138/66
[2019-11-23] MEDS: GlipiZIDE 5mg tab ORAL SCH (06:18)
[2019-11-23] MEDS: HydrALAZINE 50mg tab ORAL SCH ×3 (06:18→21:34)
[2019-11-23] MEDS: NovoLOG Insulin Flexpen SUBQ SCH ×4 (06:22→21:37)
[2019-11-23 07:21] LABS: BASOPHILS % (AUTO) 0.7 % (0.0-2.0); HEMATOCRIT 23.9 % (37.0-47.0); HEMOGLOBIN 8.3 G/DL (12.0-16.0); LYMPHOCYTES % (AUTO) 10.3 % (20.0-45.0); MEAN CORPUSCULAR VOLUME 90 FL (80-99); PLATELET COUNT 205 K/UL (150-450); RED BLOOD COUNT 2.65 M/UL (4.20-5.40); WHITE BLOOD COUNT 9.2 K/UL (4.8-10.8)
--- NOTE | 2019-11-23 07:30 | NUR ---
NURSE HAND-OFF REPORT: Important Events on Shift:n/a Patient Status: [] Diet: cardiac Pending Orders: [] Pending Results/Labs:[] Pending MD notification:[] Latest Vital Signs: Temperature 98.5 , Pulse 80 , B/P 144 /80 , Respiratory Rate 18 , O2 SAT 96 , Room Air, O2 Flow Rate . Vital Sign Comment: [] EKG Rhythm: Sinus Rhythm Rhythm change?: Y MD Notified?: N - MD Response: Latest Santiago Fall Score: 45 Fall Risk: High Risk Safety Measures: Call light Within Reach, Bed Alarm Zone 2, Side Rails Side Rails x2, Bed position Low and Locked. Fall Precautions: Yellow Gown Patient Fall Education Report given to DARIUS Cleaning.
[2019-11-23 08:00] VITALS: BP 145/85
--- NOTE | 2019-11-23 08:10 | NUR ---
NURSE NOTES: pt in bed. Pt AOx4. sputum cult. still need to be collected by pt does not want it to be collected by respiratory. She will like to do it herself. Pt on secured entrance monitor no signs of cardiac or respiratory distress. Bed in lowest position, call light within reach. Will continue to monitor.
[2019-11-23 08:19] LABS: % IRON SATURATION 8 % (15-50); IRON 14 ug/dL (50-175); TOTAL IRON BINDING CAPACITY 179 ug/dL (250-450)
[2019-11-23 08:20] LABS: ALANINE AMINOTRANSFERASE 14 U/L (12-78); ALBUMIN 3.2 G/DL (3.4-5.0); ALBUMIN/GLOBULIN RATIO 0.7 (1.0-2.7); ALKALINE PHOSPHATASE 95 U/L (46-116); ANION GAP 13 mmol/L (5-15); ASPARTATE AMINO TRANSFERASE 16 U/L (15-37); BILIRUBIN,TOTAL 0.5 MG/DL (0.2-1.0); BLOOD UREA NITROGEN 39 mg/dL (7-18); CALCIUM 8.7 MG/DL (8.5-10.1); CARBON DIOXIDE 19 MMOL/L (21-32); CHLORIDE 106 MMOL/L (98-107); CHOLESTEROL 125 MG/DL (< 200); CREATININE 2.2 MG/DL (0.55-1.30); FERRITIN 230 NG/ML (8-388); HDL CHOLESTEROL 43 MG/DL (40-60); PHOSPHORUS 3.4 MG/DL (2.5-4.9); POTASSIUM 4.1 MMOL/L (3.5-5.1); SODIUM 138 MMOL/L (136-145); TRIGLYCERIDES 100 MG/DL (30-150)
[2019-11-23 08:26] LABS: CREATINE KINASE 57 U/L (26-308); GAMMA GLUTAMYL TRANSPEPTIDASE 12 U/L (5-85)
[2019-11-23] MEDS ORDERED: Heparin 5000 units/ml inj SUBQ SCH (09:00)
[2019-11-23] MEDS: Glimepiride 4mg tab ORAL SCH ×2 (09:27→17:41)
[2019-11-23] MEDS: sitaGLIPtin 25mg tab ORAL SCH (09:28)
[2019-11-23] MEDS: Heparin 5000 units/ml inj SUBQ SCH ×2 (09:30→21:34)
--- NOTE | 2019-11-23 11:49 | Pulmonology Progress Note ---
Subjective ROS Limited/Unobtainable: Yes Constitutional: Reports: no symptoms HEENT: Repors: no symptoms Respiratory: Reports: no symptoms Allergies: Coded Allergies: No Known Allergies (Unverified , 11/21/19) Objective Last 24 Hour Vital Signs Date Time Temp Pulse Resp B/P (MAP) Pulse Ox O2 Delivery O2 Flow Rate FiO2 11/23/19 09:29 73 149/63 11/23/19 06:18 144/80 11/23/19 04:00 98.5 80 18 138/66 (90) 96 11/23/19 04:00 75 11/23/19 00:00 99.1 73 22 141/57 (85) 97 11/23/19 00:00 75 11/22/19 22:23 122/78 11/22/19 21:00 Room Air 11/22/19 20:00 98.8 88 17 128/70 (89) 95 11/22/19 20:00 75 11/22/19 17:28 98.9 11/22/19 16:00 86 11/22/19 16:00 100.1 83 17 154/66 (95) 98 11/22/19 15:46 160/62 11/22/19 12:00 98.1 85 18 160/62 (94) 96 11/22/19 12:00 86 Intake and Output 11/22/19 11/23/19 18:59 06:59 Intake Total 300 ml Balance 300 ml Intake Oral 300 ml # Voids 3 4 # Bowel Movements 1 General Appearance: WD/WN HEENT: normocephalic, atraumatic Respiratory: chest wall non-tender, lungs clear, normal breath sounds, no respiratory distress Abdomen: normal bowel sounds, soft, non tender Genitourinary: normal external genitalia Extremities: no clubbing Skin: no rash Microbiology Date/Time Source Procedure Growth Status 11/22/19 15:35 Urine,Clean Catch Urine Culture - Preliminary Gram Negative Jim Resulted 11/22/19 15:35 Nasopharynx SARS-CoV-2 RdRp Gene Assay - Final Complete 11/22/19 02:15 Blood Blood Culture - Preliminary NO GROWTH AFTER 24 HOURS Resulted 11/22/19 02:00 Blood Blood Culture - Preliminary NO GROWTH AFTER 24 HOURS Resulted 11/21/19 23:30 Nasopharynx SARS-CoV-2 RdRp Gene Assay - Final Complete Laboratory Tests 11/22/19 12:45: White Blood Count 11.3H, Red Blood Count 2.93L, Hemoglobin 9.0L, Hematocrit 26.5L, Mean Corpuscular Volume 90, Mean Corpuscular Hemoglobin 30.7, Mean Corpuscular Hemoglobin Concent 34.0, Red Cell Distribution Width 12.7, Platelet Count 213, Mean Platelet Volume 7.0, Neutrophils (%) (Auto) , Lymphocytes (%) (Auto) , Monocytes (%) (Auto) , Eosinophils (%) (Auto) , Basophils (%) (Auto) , Differential Total Cells Counted 100, Neutrophils % (Manual) 91H, Lymphocytes % (Manual) 7L, Monocytes % (Manual) 2, Eosinophils % (Manual) 0, Basophils % (Manual) 0, Band Neutrophils 0, Other Cell Type Pathologist review, Platelet Estimate Adequate, Platelet Morphology Normal, Red Blood Cell Morphology Normal, Erythrocyte Sedimentation Rate 126H, Reticulocyte Count 1.0, Prothrombin Time 11.3, Prothromb Time International Ratio 1.0, Activated Partial Thromboplast T keke 37H, Iron Level 10L, Total Iron Binding Capacity 190L, Percent Iron Saturation 5L, Unsaturated Iron Binding 180, Lactate Dehydrogenase 202, Carcinoembryonic Antigen 2.8, Vitamin B12 Level 854, Folate 69.9H 11/22/19 15:35: Urine Color Pale yellow, Urine Appearance Slightly cloudy, Urine pH 5, Urine Specific [place] 1.010, Urine Protein 2+H, Urine Glucose (UA) 1+H, Urine Ketones Negative, Urine Blood 1+H, Urine Nitrite Negative, Urine Bilirubin Negative, Urine Urobilinogen Normal, Urine Leukocyte Esterase 3+H, Urine RBC 0-2, Urine WBC TntcH, Urine Squamous Epithelial Cells Occasional, Urine Bacteria Occasional, Urine Random Sodium 94 11/22/19 16:45: POC Whole Blood Glucose 319H 11/22/19 20:25: Troponin I 0.000 11/23/19 05:40: White Blood Count 9.2, Red Blood Count 2.65L, Hemoglobin 8.3L, Hematocrit 23.9L, Mean Corpuscular Volume 90, Mean Corpuscular Hemoglobin 31.2H, Mean Corpuscular Hemoglobin Concent 34.5, Red Cell Distribution Width 13.0, Platelet Count 205, Mean Platelet Volume 6.8, Neutrophils (%) (Auto) 78.0H, Lymphocytes (%) (Auto) 10.3L, Monocytes (%) (Auto) 8.0, Eosinophils (%) (Auto) 3.0, Basophils (%) (Auto) 0.7, Sodium Level 138, Potassium Level 4.1, Chloride Level 106, Carbon Dioxide Level 19L, Anion Gap 13, Blood Urea Nitrogen 39H, Creatinine 2.2H, Estimat Glomerular Filtration Rate 21.7, Glucose Level 241H, Hemoglobin A1c 8.6H , Uric Acid 5.5, Calcium Level 8.7, Phosphorus Level 3.4, Magnesium Level 2.4, Iron Level 14L, Total Iron Binding Capacity 179L, Percent Iron Saturation 8L, Unsaturated Iron Binding 165, Ferritin 230, Total Bilirubin 0.5, Gamma Glutamyl Transpeptidase 12, Aspartate Amino Transf (AST/SGOT) 16, Alanine Aminotransferase (ALT/SGPT) 14, Alkaline Phosphatase 95, Total Creatine Kinase 57, Troponin I 0.000, C-Reactive Protein, Quantitative 22.4H, Pro-B-Type Natriuretic Peptide 33362T, Total Protein 7.5, Albumin 3.2L, Globulin 4.3, Albumin/Globulin Ratio 0.7L, Triglycerides Level 100, Cholesterol Level 125, LDL Cholesterol 63, HDL Cholesterol 43, Cholesterol/HDL Ratio 2.9L, Vitamin B12 Level 792, Folate 56.1, Thyroid Stimulating Hormone (TSH) 6.616H 11/23/19 06:13: POC Whole Blood Glucose 243H 11/23/19 07:40: Urine Eosinophils None seen Current Medications Medications (Trade) Dose Ordered Sig/Rosetta Route PRN Reason Start Time Stop Time Status Last Admin Dose Admin Acetaminophen (Tylenol) 650 mg Q4H PRN ORAL Mild Pain(Pain Scale 1-3)fever 11/22/19 08:30 12/22/19 08:29 11/22/19 16:58 Acetaminophen/ Codeine Phosphate (Tylenol #3) 1 tab Q6H PRN ORAL Severe Pain (Pain Scale 7-10) 11/22/19 08:30 11/29/19 08:29 11/22/19 10:25 Amlodipine Besylate (Norvasc) 5 mg DAILY ORAL 11/22/19 09:00 12/22/19 08:59 11/23/19 09:29 Azithromycin (Zithromax) 250 mg QHS ORAL 11/22/19 21:00 11/29/19 20:59 11/22/19 22:23 Ceftriaxone Sodium 1 gm/ Sodium Chloride 50 ml @ 100 mls/hr QHS IVPB 11/22/19 21:00 11/29/19 20:59 11/22/19 21:00 Dextrose (Dextrose 50%) 25 ml Q30M PRN IV Hypoglycemia 11/22/19 08:30 02/20/20 08:29 Dextrose (Dextrose 50%) 50 ml Q30M PRN IV Hypoglycemia 11/22/19 08:30 02/20/20 08:29 Glimepiride (AmaryL) 4 mg BID ORAL 11/22/19 09:00 12/22/19 08:59 11/23/19 09:27 Glipizide (Glucotrol) 5 mg BIAC ORAL 11/22/19 11:30 12/22/19 11:29 11/23/19 06:18 Heparin Sodium (Porcine) (Heparin 5000 units/ml) 5,000 units EVERY 12 HOURS SUBQ 11/22/19 09:00 01/06/20 08:59 11/23/19 09:30 Hydralazine HCl (Apresoline) 50 mg Q8HR ORAL 11/22/19 14:00 02/20/20 13:59 11/23/19 06:18 Insulin Aspart (NovoLOG) BEFORE MEALS AND HS SUBQ 11/22/19 11:30 02/20/20 11:29 11/23/19 06:22 Nateglinide (Starlix) 120 mg TIAC ORAL 11/22/19 11:30 12/22/19 11:29 11/23/19 06:19 Ondansetron HCl (Zofran) 4 mg Q4H PRN IVP Nausea & Vomiting 11/22/19 08:30 12/22/19 08:29 Promethazine HCl/ Codeine (Phenergan with Codeine) 5 ml Q4H PRN ORAL For Cough 11/22/19 11:15 12/22/19 11:14 Sitagliptin Phosphate (Januvia) 25 mg DAILY ORAL 11/22/19 09:00 12/22/19 08:59 11/23/19 09:28 Assessment/Plan Problems: (1) ACS (acute coronary syndrome) (2) Community acquired pneumonia (3) Acute on chronic renal insufficiency (4) History of hypertension (5) History of diabetes mellitus Assessment/Plan serial ekg, troponin are all negative Echocardiogram, EF WNL, moderate Pulmonary hypertension cardiology appreciated sputum induction titrate fio2 to sat of 92% antitussives symptomatic treatment sliding scale diabetic diet Rodrigo Marroquin MD Nov 23, 2019 11:49
[2019-11-23 12:00] VITALS: BP 121/60
--- NOTE | 2019-11-23 12:32 | Nephrology Progress Note ---
Assessment/Plan Problem List: (1) Acute on chronic renal insufficiency (2) History of diabetes mellitus (3) History of hypertension (4) Normocytic anemia Assessment Renal failure, most likely acute on chronic Rule out diabetic nephropathy Diabetes mellitus Coronary artery disease Anemia, related to kidney disease and or iron deficiency Plan November 22: Start the patient on subcu Epogen and IV iron. Start sliding scale insulin. Kidney ultrasound: Negative for hydronephrosis 2D echocardiogram: Ejection fraction 60% Urine analysis, noted Urine spot electrolyte, noted Anemia work-up Monitor renal parameters Avoid nephrotoxic's Subjective ROS Limited/Unobtainable: No Constitutional: Reports: malaise, weakness Objective Objective Last 24 Hour Vital Signs Date Time Temp Pulse Resp B/P (MAP) Pulse Ox O2 Delivery O2 Flow Rate FiO2 11/23/19 09:29 73 149/63 11/23/19 06:18 144/80 11/23/19 04:00 98.5 80 18 138/66 (90) 96 11/23/19 04:00 75 11/23/19 00:00 99.1 73 22 141/57 (85) 97 11/23/19 00:00 75 11/22/19 22:23 122/78 11/22/19 21:00 Room Air 11/22/19 20:00 98.8 88 17 128/70 (89) 95 11/22/19 20:00 75 11/22/19 17:28 98.9 11/22/19 16:00 86 11/22/19 16:00 100.1 83 17 154/66 (95) 98 11/22/19 15:46 160/62 Intake and Output 11/22/19 11/23/19 19:00 07:00 Intake Total 300 ml Balance 300 ml Intake Oral 300 ml # Voids 3 4 # Bowel Movements 1 Current Medications Medications (Trade) Dose Ordered Sig/Rosetta Route PRN Reason Start Time Stop Time Status Last Admin Dose Admin Acetaminophen (Tylenol) 650 mg Q4H PRN ORAL Mild Pain(Pain Scale 1-3)fever 11/22/19 08:30 12/22/19 08:29 11/22/19 16:58 Acetaminophen/ Codeine Phosphate (Tylenol #3) 1 tab Q6H PRN ORAL Severe Pain (Pain Scale 7-10) 11/22/19 08:30 11/29/19 08:29 11/22/19 10:25 Amlodipine Besylate (Norvasc) 5 mg DAILY ORAL 11/22/19 09:00 12/22/19 08:59 11/23/19 09:29 Azithromycin (Zithromax) 250 mg QHS ORAL 11/22/19 21:00 11/29/19 20:59 11/22/19 22:23 Ceftriaxone Sodium 1 gm/ Sodium Chloride 50 ml @ 100 mls/hr QHS IVPB 11/22/19 21:00 11/29/19 20:59 11/22/19 21:00 Dextrose (Dextrose 50%) 25 ml Q30M PRN IV Hypoglycemia 11/22/19 08:30 02/20/20 08:29 Dextrose (Dextrose 50%) 50 ml Q30M PRN IV Hypoglycemia 11/22/19 08:30 02/20/20 08:29 Glimepiride (AmaryL) 4 mg BID ORAL 11/22/19 09:00 12/22/19 08:59 11/23/19 09:27 Glipizide (Glucotrol) 5 mg BIAC ORAL 11/22/19 11:30 12/22/19 11:29 11/23/19 06:18 Heparin Sodium (Porcine) (Heparin 5000 units/ml) 5,000 units EVERY 12 HOURS SUBQ 11/22/19 09:00 01/06/20 08:59 11/23/19 09:30 Hydralazine HCl (Apresoline) 50 mg Q8HR ORAL 11/22/19 14:00 02/20/20 13:59 11/23/19 06:18 Insulin Aspart (NovoLOG) BEFORE MEALS AND HS SUBQ 11/22/19 11:30 02/20/20 11:29 11/23/19 06:22 Nateglinide (Starlix) 120 mg TIAC ORAL 11/22/19 11:30 12/22/19 11:29 11/23/19 06:19 Ondansetron HCl (Zofran) 4 mg Q4H PRN IVP Nausea & Vomiting 11/22/19 08:30 12/22/19 08:29 Promethazine HCl/ Codeine (Phenergan with Codeine) 5 ml Q4H PRN ORAL For Cough 11/22/19 11:15 12/22/19 11:14 Sitagliptin Phosphate (Januvia) 25 mg DAILY ORAL 11/22/19 09:00 12/22/19 08:59 11/23/19 09:28 Laboratory Tests 11/22/19 12:45: White Blood Count 11.3H, Red Blood Count 2.93L, Hemoglobin 9.0L, Hematocrit 26.5L, Mean Corpuscular Volume 90, Mean Corpuscular Hemoglobin 30.7, Mean Corpuscular Hemoglobin Concent 34.0, Red Cell Distribution Width 12.7, Platelet Count 213, Mean Platelet Volume 7.0, Neutrophils (%) (Auto) , Lymphocytes (%) (Auto) , Monocytes (%) (Auto) , Eosinophils (%) (Auto) , Basophils (%) (Auto) , Differential Total Cells Counted 100, Neutrophils % (Manual) 91H, Lymphocytes % (Manual) 7L, Monocytes % (Manual) 2, Eosinophils % (Manual) 0, Basophils % (Manual) 0, Band Neutrophils 0, Other Cell Type Pathologist review, Platelet Estimate Adequate, Platelet Morphology Normal, Red Blood Cell Morphology Normal, Erythrocyte Sedimentation Rate 126H, Reticulocyte Count 1.0, Prothrombin Time 11.3, Prothromb Time International Ratio 1.0, Activated Partial Thromboplast Time 37H, Iron Level 10L, Total Iron Binding Capacity 190L, Percent Iron Saturation 5L, Unsaturated Iron Binding 180, Lactate Dehydrogenase 202, Carcinoembryonic Antigen 2.8, Vitamin B12 Level 854, Folate 69.9H 11/22/19 15:35: Urine Color Pale yellow, Urine Appearance Slightly cloudy, Urine pH 5, Urine Specific [place] 1.010, Urine Protein 2+H, Urine Glucose (UA) 1+H, Urine Ketones Negative, Urine Blood 1+H, Urine Nitrite Negative, Urine Bilirubin Negative, Urine Urobilinogen Normal, Urine Leukocyte Esterase 3+H, Urine RBC 0-2, Urine WBC TntcH, Urine Squamous Epithelial Cells Occasional, Urine Bacteria Occasional, Urine Random Sodium 94 11/22/19 16:45: POC Whole Blood Glucose 319H 11/22/19 20:25: Troponin I 0.000 11/23/19 05:40: White Blood Count 9.2, Red Blood Count 2.65L, Hemoglobin 8.3L, Hematocrit 23.9L, Mean Corpuscular Volume 90, Mean Corpuscular Hemoglobin 31.2H, Mean Corpuscular Hemoglobin Concent 34.5, Red Cell Distribution Width 13.0, Platelet Count 205, Mean Platelet Volume 6.8, Neutrophils (%) (Auto) 78.0H, Lymphocytes (%) (Auto) 10.3L, Monocytes (%) (Auto) 8.0, Eosinophils (%) (Auto) 3.0, Basophils (%) (Auto) 0.7, Sodium Level 138, Potassium Level 4.1, Chloride Level 106, Carbon Dioxide Level 19L, Anion Gap 13, Blood Urea Nitrogen 39H, Creatinine 2.2H, Estimat Glomerular Filtration Rate 21.7, Glucose Level 241H, Hemoglobin A1c 8.6H , Uric Acid 5.5, Calcium Level 8.7, Phosphorus Level 3.4, Magnesium Level 2.4, Iron Level 14L, Total Iron Binding Capacity 179L, Percent Iron Saturation 8L, Unsaturated Iron Binding 165, Ferritin 230, Total Bilirubin 0.5, Gamma Glutamyl Transpeptidase 12, Aspartate Amino Transf (AST/SGOT) 16, Alanine San otransferase (ALT/SGPT) 14, Alkaline Phosphatase 95, Total Creatine Kinase 57, Troponin I 0.000, C-Reactive Protein, Quantitative 22.4H, Pro-B-Type Natriuretic Peptide 64586L, Total Protein 7.5, Albumin 3.2L, Globulin 4.3, Albumin/Globulin Ratio 0.7L, Triglycerides Level 100, Cholesterol Level 125, LDL Cholesterol 63, HDL Cholesterol 43, Cholesterol/HDL Ratio 2.9L, Vitamin B12 Level 792, Folate 56.1, Thyroid Stimulating Hormone (TSH) 6.616H 11/23/19 06:13: POC Whole Blood Glucose 243H 11/23/19 07:40: Urine Eosinophils None seen Height (Feet): 5 Height (Inches): 0.00 Weight (Pounds): 145 General Appearance: no apparent distress, lethargic EENT: other - Oxygen by cannula Cardiovascular: normal rate Respiratory/Chest: decreased breath sounds Abdomen: soft Austin Malone MD Nov 23, 2019 12:32
--- NOTE | 2019-11-23 15:55 | Diagnostic Imaging Report ---
Indication: Pain Technique: Grayscale and duplex images of the bilateral lower extremity veins Comparison: Findings: Bilaterally, grayscale and duplex images demonstrate no evidence of intraluminal thrombus. Normal phasic Doppler waveforms, demonstrating normal augmentation response and no evidence of valvular insufficiency. Greater saphenous vein(s) and tibial veins are patent. Normal compressibility. Impression: Negative for evidence of lower extremity deep venous thrombosis bilaterally
[2019-11-23 16:00] VITALS: BP 147/60
[2019-11-23] MEDS ORDERED: AMLODIPINE BESY10 MG ORAL (17:09)
[2019-11-23] MEDS ORDERED: FUROSEMIDE20 M1 ORAL (17:09)
[2019-11-23] MEDS ORDERED: ATORVASTATIN CA10 MG ORAL (17:09)
[2019-11-23] MEDS ORDERED: BASAGLAR SQ (17:09)
[2019-11-23] MEDS ORDERED: CIPROFLOXACIN1 EACH RIGHT EYE (17:09)
--- NOTE | 2019-11-23 17:44 | Infectious Diseases Prog Note ---
Assessment/Plan Assessment: COVID19 neg x2 (11/20, 7 Rapid COVID PCR neg) CAP -11/20 CXR: Cardiomegaly. Bilateral right greater than left interstitial and airspace edema versus infiltrate Low grade fever; improving Leukocytosis, SP -11/21 Bcx NTD UTI -u/a wbc tnct, nit neg, leuk +3; ucx >100k GNR Chest pain NIKI, improving DM2 HTN CHF CAD Plan: -Continue empiric Ceftriaxone and Azithromycin #2 -f/u cx -Monitor CBC/CMP, temperatures -COVID19 neg x2 Thank you for this consultation. Will continue to follow along with you. Discussed with RN. Subjective Allergies: Coded Allergies: No Known Allergies (Unverified , 11/21/19) afebrile in 24hrs leukocytosis resolved Objective Last 24 Hour Vital Signs Date Time Temp Pulse Resp B/P (MAP) Pulse Ox O2 Delivery O2 Flow Rate FiO2 11/23/19 14:47 121/60 11/23/19 12:00 96.7 91 19 121/60 (80) 98 11/23/19 09:29 73 149/63 11/23/19 09:00 Room Air 11/23/19 08:00 96.8 79 19 145/85 (105) 96 11/23/19 06:18 144/80 11/23/19 04:00 98.5 80 18 138/66 (90) 96 11/23/19 04:00 75 11/23/19 00:00 99.1 73 22 141/57 (85) 97 11/23/19 00:00 75 11/22/19 22:23 122/78 11/22/19 21:00 Room Air 11/22/19 20:00 98.8 88 17 128/70 (89) 95 11/22/19 20:00 75 Height (Feet): 5 Height (Inches): 0.00 Weight (Pounds): 145 General Appearance: WD/WN Lines, tubes and drains: peripheral HEENT: normocephalic, atraumatic Neck: non-tender, normal alignment, supple, normal inspection Respiratory/Chest: chest wall non-tender, lungs clear, normal breath sounds, rhonchi - right Cardiovascular/Chest: normal peripheral pulses, normal rate, regularly irregular Abdomen: normal bowel sounds, non tender Microbiology Date/Time Source Procedure Growth Status 11/22/19 15:35 Urine,Clean Catch Urine Culture - Preliminary Gram Negative Jim Resulted 11/22/19 15:35 Nasopharynx SARS-CoV-2 RdRp Gene Assay - Final Complete 11/22/19 02:15 Blood Blood Culture - Preliminary NO GROWTH AFTER 24 HOURS Resulted 11/22/19 02:00 Blood Blood Culture - Preliminary NO GROWTH AFTER 24 HOURS Resulted 11/21/19 23:30 Nasopharynx SARS-CoV-2 RdRp Gene Assay - Final Complete Laboratory Tests Test 11/22/19 20:25 11/23/19 05:40 11/23/19 06:13 11/23/19 07:40 Troponin I 0.000 ng/mL (0.000-0.056) 0.000 ng/mL (0.000-0.056) White Blood Count 9.2 K/UL (4.8-10.8) Red Blood Count 2.65 M/UL (4.20-5.40) L Hemoglobin 8.3 G/DL (12.0-16.0) L Hematocrit 23.9 % (37.0-47.0) L Mean Corpuscular Volume 90 FL (80-99) Mean Corpuscular Hemoglobin 31.2 PG (27.0-31.0) H Mean Corpuscular Hemoglobin Concent 34.5 G/DL (32.0-36.0) Red Cell Distribution Width 13.0 % (11.6-14.8) Platelet Count 205 K/UL (150-450) Mean Platelet Volume 6.8 FL (6.5-10.1) Neutrophils (%) (Auto) 78.0 % (45.0-75.0) H Lymphocytes (%) (Auto) 10.3 % (20.0-45.0) L Monocytes (%) (Auto) 8.0 % (1.0-10.0) Eosinophils (%) (Auto) 3.0 % (0.0-3.0) Basophils (%) (Auto) 0.7 % (0.0-2.0) Sodium Level 138 MMOL/L (136-145) Potassium Level 4.1 MMOL/L (3.5-5.1) Chloride Level 106 MMOL/L (98-107) Carbon Dioxide Level 19 MMOL/L (21-32) L Anion Gap 13 mmol/L (5-15) Blood Urea Nitrogen 39 mg/dL (7-18) H Creatinine 2.2 MG/DL (0.55-1.30) H Estimat Glomerular Filtration Rate 21.7 mL/min (>60) Glucose Level 241 MG/DL (74-106) H Hemoglobin A1c 8.6 % (4.3-6.0) H Uric Acid 5.5 MG/DL (2.6-7.2) Calcium Level 8.7 MG/DL (8.5-10.1) Phosphorus Level 3.4 MG/DL (2.5-4.9) Magnesium Level 2.4 MG/DL (1.8-2.4) Iron Level 14 ug/dL (50-175) L Total Iron Binding Capacity 179 ug/dL (250-450) L Percent Iron Saturation 8 % (15-50) L Unsaturated Iron Binding 165 ug/dL (112-346) Ferritin 230 NG/ML (8-388) Total Bilirubin 0.5 MG/DL (0.2-1.0) Gamma Glutamyl Transpeptidase 12 U/L (5-85) Aspartate Amino Transf (AST/SGOT) 16 U/L (15-37) Alanine Aminotransferase (ALT/SGPT) 14 U/L (12-78) Alkaline Phosphatase 95 U/L (46-116) Total Creatine Kinase 57 U/L (26-308) C-Reactive Protein, Quantitative 22.4 mg/dL (0.00-0.90) H Pro-B-Type Natriuretic Peptide 04475 pg/mL (0-125) H Total Protein 7.5 G/DL (6.4-8.2) Albumin 3.2 G/DL (3.4-5.0) L Globulin 4.3 g/dL Albumin/Globulin Ratio 0.7 (1.0-2.7) L Triglycerides Level 100 MG/DL (30-150) Cholesterol Level 125 MG/DL (< 200) LDL Cholesterol 63 mg/dL (<100) HDL Cholesterol 43 MG/DL (40-60) Cholesterol/HDL Ratio 2.9 (3.3-4.4) L Vitamin B12 Level 792 PG/ML (193-986) Folate 56.1 NG/ML (8.6-58.9) Thyroid Stimulating Hormone (TSH) 6.616 uiU/mL (0.358-3.740) POC Whole Blood Glucose 243 MG/DL (74-106) H Urine Eosinophils None seen (NONE SEEN) Test 11/23/19 12:33 POC Whole Blood Glucose 215 MG/DL (74-106) H Current Medications Medications (Trade) Dose Ordered Sig/Rosetta Route PRN Reason Start Time Stop Time Status Last Admin Dose Admin Acetaminophen (Tylenol) 650 mg Q4H PRN ORAL Mild Pain(Pain Scale 1-3)fever 11/22/19 08:30 12/22/19 08:29 11/22/19 16:58 Acetaminophen/ Codeine Phosphate (Tylenol #3) 1 tab Q6H PRN ORAL Severe Pain (Pain Scale 7-10) 11/22/19 08:30 11/29/19 08:29 11/22/19 10:25 Amlodipine Besylate (Norvasc) 5 mg BID ORAL 11/23/19 18:00 12/22/19 08:59 Azithromycin (Zithromax) 250 mg QHS ORAL 11/22/19 21:00 11/29/19 20:59 11/22/19 22:23 Ceftriaxone Sodium 1 gm/ Sodium Chloride 50 ml @ 100 mls/hr QHS IVPB 11/22/19 21:00 11/29/19 20:59 11/22/19 21:00 Dextrose (Dextrose 50%) 25 ml Q30M PRN IV Hypoglycemia 11/22/19 08:30 02/20/20 08:29 Dextrose (Dextrose 50%) 50 ml Q30M PRN IV Hypoglycemia 11/22/19 08:30 02/20/20 08:29 Epoetin Long (Epoetin Long-EPBX(NON ESRD)) 10,000 unit SUBQ 11/24/19 21:00 02/22/20 20:59 Glimepiride (AmaryL) 4 mg BID ORAL 11/22/19 09:00 12/22/19 08:59 11/23/19 09:27 Heparin Sodium (Porcine) (Heparin 5000 units/ml) 5,000 units EVERY 12 HOURS SUBQ 11/22/19 09:00 01/06/20 08:59 11/23/19 09:30 Hydralazine HCl (Apresoline) 50 mg Q8HR ORAL 11/22/19 14:00 02/20/20 13:59 11/23/19 14:47 Insulin Aspart (NovoLOG) BEFORE MEALS AND HS SUBQ 11/22/19 11:30 02/20/20 11:29 11/23/19 12:38 Nateglinide (Starlix) 120 mg TIAC ORAL 11/22/19 11:30 12/22/19 11:29 11/23/19 12:41 Ondansetron HCl (Zofran) 4 mg Q4H PRN IVP Nausea & Vomiting 11/22/19 08:30 12/22/19 08:29 Promethazine HCl/ Codeine (Phenergan with Codeine) 5 ml Q4H PRN ORAL For Cough 11/22/19 11:15 12/22/19 11:14 Sitagliptin Phosphate (Januvia) 50 mg DAILY ORAL 11/24/19 09:00 12/22/19 08:59 Hortensia Hoffman M.D. Nov 23, 2019 17:44
--- NOTE | 2019-11-23 19:20 | Cardiology Progress Note ---
Assessment/Plan Assessment/Plan chest pain dm systemic htn pulm htn obesity renal insuf sed rate increasd duplexx neg ekg neg will have mpi as multiple rf for cad adn i am unable to explain her pain by other means discussed plan for stress test with pt has never had one before Subjective Cardiovascular: Denies: chest pain, lightheadedness, palpitations Respiratory: Denies: shortness of breath Gastrointestinal/Abdominal: Reports: abdominal pain Genitourinary: Denies: burning Objective Last 24 Hour Vital Signs Date Time Temp Pulse Resp B/P (MAP) Pulse Ox O2 Delivery O2 Flow Rate FiO2 11/23/19 17:42 78 147/60 11/23/19 16:00 73 11/23/19 16:00 98.1 78 20 147/60 (89) 96 11/23/19 14:47 121/60 11/23/19 12:00 71 11/23/19 12:00 96.7 91 19 121/60 (80) 98 11/23/19 09:29 73 149/63 11/23/19 09:00 Room Air 11/23/19 08:00 83 11/23/19 08:00 96.8 79 19 145/85 (105) 96 11/23/19 06:18 144/80 11/23/19 04:00 98.5 80 18 138/66 (90) 96 11/23/19 04:00 75 11/23/19 00:00 99.1 73 22 141/57 (85) 97 11/23/19 00:00 75 11/22/19 22:23 122/78 11/22/19 21:00 Room Air 11/22/19 20:00 98.8 88 17 128/70 (89) 95 11/22/19 20:00 75 General Appearance: no apparent distress, alert, obese Neck: supple Cardiovascular: normal rate Respiratory/Chest: lungs clear Abdomen: normal bowel sounds, soft, tender - deep plap Extremities: no swelling Intake and Output 11/22/19 11/23/19 19:00 07:00 Intake Total 300 ml Balance 300 ml Intake Oral 300 ml # Voids 3 4 # Bowel Movements 1 Laboratory Tests Test 11/22/19 20:25 11/23/19 05:40 11/23/19 06:13 11/23/19 07:40 Troponin I 0.000 ng/mL (0.000-0.056) 0.000 ng/mL (0.000-0.056) White Blood Count 9.2 K/UL (4.8-10.8) Red Blood Count 2.65 M/UL (4.20-5.40) L Hemoglobin 8.3 G/DL (12.0-16.0) L Hematocrit 23.9 % (37.0-47.0) L Mean Corpuscular Volume 90 FL (80-99) Mean Corpuscular Hemoglobin 31.2 PG (27.0-31.0) H Mean Corpuscular Hemoglobin Concent 34.5 G/DL (32.0-36.0) Red Cell Distribution Width 13.0 % (11.6-14.8) Platelet Count 205 K/UL (150-450) Mean Platelet Volume 6.8 FL (6.5-10.1) Neutrophils (%) (Auto) 78.0 % (45.0-75.0) H Lymphocytes (%) (Auto) 10.3 % (20.0-45.0) L Monocytes (%) (Auto) 8.0 % (1.0-10.0) Eosinophils (%) (Auto) 3.0 % (0.0-3.0) Basophils (%) (Auto) 0.7 % (0.0-2.0) Sodium Level 138 MMOL/L (136-145) Potassium Level 4.1 MMOL/L (3.5-5.1) Chloride Level 106 MMOL/L (98-107) Carbon Dioxide Level 19 MMOL/L (21-32) L Anion Gap 13 mmol/L (5-15) Blood Urea Nitrogen 39 mg/dL (7-18) H Creatinine 2.2 MG/DL (0.55-1.30) H Estimat Glomerular Filtration Rate 21.7 mL/min (>60) Glucose Level 241 MG/DL (74-106) H Hemoglobin A1c 8.6 % (4.3-6.0) H Uric Acid 5.5 MG/DL (2.6-7.2) Calcium Level 8.7 MG/DL (8.5-10.1) Phosphorus Level 3.4 MG/DL (2.5-4.9) Magnesium Level 2.4 MG/DL (1.8-2.4) Iron Level 14 ug/dL (50-175) L Total Iron Binding Capacity 179 ug/dL (250-450) L Percent Iron Saturation 8 % (15-50) L Unsaturated Iron Binding 165 ug/dL (112-346) Ferritin 230 NG/ML (8-388) Total Bilirubin 0.5 MG/DL (0.2-1.0) Gamma Glutamyl Transpeptidase 12 U/L (5-85) Aspartate Amino Transf (AST/SGOT) 16 U/L (15-37) Alanine Aminotransferase (ALT/SGPT) 14 U/L (12-78) Alkaline Phosphatase 95 U/L (46-116) Total Creatine Kinase 57 U/L (26-308) C-Reactive Protein, Quantitative 22.4 mg/dL (0.00-0.90) H Pro-B-Type Natriuretic Peptide 84246 pg/mL (0-125) H Total Protein 7.5 G/DL (6.4-8.2) Albumin 3.2 G/DL (3.4-5.0) L Globulin 4.3 g/dL Albumin/Globulin Ratio 0.7 (1.0-2.7) L Triglycerides Level 100 MG/DL (30-150) Cholesterol Level 125 MG/DL (< 200) LDL Cholesterol 63 mg/dL (<100) HDL Cholesterol 43 MG/DL (40-60) Cholesterol/HDL Ratio 2.9 (3.3-4.4) L Vitamin B12 Level 792 PG/ML (193-986) Folate 56.1 NG/ML (8.6-58.9) Thyroid Stimulating Hormone (TSH) 6.616 uiU/mL (0.358-3.740) POC Whole Blood Glucose 243 MG/DL (74-106) H Urine Eosinophils None seen (NONE SEEN) Test 11/23/19 12:33 11/23/19 17:50 POC Whole Blood Glucose 215 MG/DL (74-106) H 329 MG/DL (74-106) H Microbiology Date/Time Source Procedure Growth Status 11/22/19 15:35 Urine,Clean Catch Urine Culture - Preliminary Gram Negative Jim Resulted 11/22/19 15:35 Nasopharynx SARS-CoV-2 RdRp Gene Assay - Final Complete 11/22/19 02:15 Blood Blood Culture - Preliminary NO GROWTH AFTER 24 HOURS Resulted 11/22/19 02:00 Blood Blood Culture - Preliminary NO GROWTH AFTER 24 HOURS Resulted 11/21/19 23:30 Nasopharynx SARS-CoV-2 RdRp Gene Assay - Final Complete Pool Santana MD Nov 23, 2019 19:20
[2019-11-23] MEDS ORDERED: Lexiscan 0.4mg/5ml syringe IV PRN (19:30)
--- NOTE | 2019-11-23 19:40 | Internal Med Progress Note ---
Subjective Date of Service: Nov 23, 2019 Physician Name Tony Reyes Attending Physician Morro Rodríguez MD Current Medications Medications (Trade) Dose Ordered Sig/Rosetta Route PRN Reason Start Time Stop Time Status Last Admin Dose Admin Acetaminophen (Tylenol) 650 mg Q4H PRN ORAL Mild Pain(Pain Scale 1-3)fever 11/22/19 08:30 12/22/19 08:29 11/22/19 16:58 Acetaminophen/ Codeine Phosphate (Tylenol #3) 1 tab Q6H PRN ORAL Severe Pain (Pain Scale 7-10) 11/22/19 08:30 11/29/19 08:29 11/22/19 10:25 Amlodipine Besylate (Norvasc) 5 mg BID ORAL 11/23/19 18:00 12/22/19 08:59 11/23/19 17:42 Azithromycin (Zithromax) 250 mg QHS ORAL 11/22/19 21:00 11/29/19 20:59 11/22/19 22:23 Ceftriaxone Sodium 1 gm/ Sodium Chloride 50 ml @ 100 mls/hr QHS IVPB 11/22/19 21:00 11/29/19 20:59 11/22/19 21:00 Dextrose (Dextrose 50%) 25 ml Q30M PRN IV Hypoglycemia 11/22/19 08:30 02/20/20 08:29 Dextrose (Dextrose 50%) 50 ml Q30M PRN IV Hypoglycemia 11/22/19 08:30 02/20/20 08:29 Epoetin Long (Epoetin Long-EPBX(NON ESRD)) 10,000 unit WED-WED-WED SUBQ 11/24/19 21:00 02/22/20 20:59 Glimepiride (AmaryL) 4 mg BID ORAL 11/22/19 09:00 12/22/19 08:59 11/23/19 17:41 Heparin Sodium (Porcine) (Heparin 5000 units/ml) 5,000 units EVERY 12 HOURS SUBQ 11/22/19 09:00 01/06/20 08:59 11/23/19 09:30 Hydralazine HCl (Apresoline) 50 mg Q8HR ORAL 11/22/19 14:00 02/20/20 13:59 11/23/19 14:47 Insulin Aspart (NovoLOG) BEFORE MEALS AND HS SUBQ 11/22/19 11:30 02/20/20 11:29 11/23/19 17:53 Nateglinide (Starlix) 120 mg TIAC ORAL 11/22/19 11:30 12/22/19 11:29 11/23/19 17:41 Ondansetron HCl (Zofran) 4 mg Q4H PRN IVP Nausea & Vomiting 11/22/19 08:30 12/22/19 08:29 Promethazine HCl/ Codeine (Phenergan with Codeine) 5 ml Q4H PRN ORAL For Cough 11/22/19 11:15 12/22/19 11:14 Regadenoson (Lexiscan) 0.4 mg ONCE PRN IV stress test 11/23/19 19:30 11/25/19 19:29 Sitagliptin Phosphate (Januvia) 50 mg DAILY ORAL 11/24/19 09:00 12/22/19 08:59 Allergies: Coded Allergies: No Known Allergies (Unverified , 11/21/19) ROS Limited/Unobtainable: No Constitutional: Reports: no symptoms HEENT: Reports: no symptoms Cardiovascular: Reports: chest pain Respiratory: Reports: no symptoms Gastrointestinal/Abdominal: Reports: no symptoms Genitourinary: Reports: no symptoms Neurologic/Psychiatric: Reports: no symptoms Subjective 74 YO F admitted with chest pain. Now pneumonia and jamshid heart failure. Cover for Int Med-DR Rodríguez. Await cardiolite stress test Objective Last Vital Signs Date Time Temp Pulse Resp B/P (MAP) Pulse Ox O2 Delivery O2 Flow Rate FiO2 11/23/19 17:42 78 147/60 11/23/19 16:00 98.1 20 96 11/23/19 09:00 Room Air Laboratory Tests Test 11/22/19 20:25 11/23/19 05:40 11/23/19 06:13 11/23/19 07:40 Troponin I 0.000 ng/mL (0.000-0.056) 0.000 ng/mL (0.000-0.056) White Blood Count 9.2 K/UL (4.8-10.8) Red Blood Count 2.65 M/UL (4.20-5.40) L Hemoglobin 8.3 G/DL (12.0-16.0) L Hematocrit 23.9 % (37.0-47.0) L Mean Corpuscular Volume 90 FL (80-99) Mean Corpuscular Hemoglobin 31.2 PG (27.0-31.0) H Mean Corpuscular Hemoglobin Concent 34.5 G/DL (32.0-36.0) Red Cell Distribution Width 13.0 % (11.6-14.8) Platelet Count 205 K/UL (150-450) Mean Platelet Volume 6.8 FL (6.5-10.1) Neutrophils (%) (Auto) 78.0 % (45.0-75.0) H Lymphocytes (%) (Auto) 10.3 % (20.0-45.0) L Monocytes (%) (Auto) 8.0 % (1.0-10.0) Eosinophils (%) (Auto) 3.0 % (0.0-3.0) Basophils (%) (Auto) 0.7 % (0.0-2.0) Sodium Level 138 MMOL/L (136-145) Potassium Level 4.1 MMOL/L (3.5-5.1) Chloride Level 106 MMOL/L (98-107) Carbon Dioxide Level 19 MMOL/L (21-32) L Anion Gap 13 mmol/L (5-15) Blood Urea Nitrogen 39 mg/dL (7-18) H Creatinine 2.2 MG/DL (0.55-1.30) H Estimat Glomerular Filtration Rate 21.7 mL/min (>60) Glucose Level 241 MG/DL (74-106) H Hemoglobin A1c 8.6 % (4.3-6.0) H Uric Acid 5.5 MG/DL (2.6-7.2) Calcium Level 8.7 MG/DL (8.5-10.1) Phosphorus Level 3.4 MG/DL (2.5-4.9) Magnesium Level 2.4 MG/DL (1.8-2.4) Iron Level 14 ug/dL (50-175) L Total Iron Binding Capacity 179 ug/dL (250-450) L Percent Iron Saturation 8 % (15-50) L Unsaturated Iron Binding 165 ug/dL (112-346) Ferritin 230 NG/ML (8-388) Total Bilirubin 0.5 MG/DL (0.2-1.0) Gamma Glutamyl Transpeptidase 12 U/L (5-85) Aspartate Amino Transf (AST/SGOT) 16 U/L (15-37) Alanine Aminotransferase (ALT/SGPT) 14 U/L (12-78) Alkaline Phosphatase 95 U/L (46-116) Total Creatine Kinase 57 U/L (26-308) C-Reactive Protein, Quantitative 22.4 mg/dL (0.00-0.90) H Pro-B-Type Natriuretic Peptide 10516 pg/mL (0-125) H Total Protein 7.5 G/DL (6.4-8.2) Albumin 3.2 G/DL (3.4-5.0) L Globulin 4.3 g/dL Albumin/Globulin Ratio 0.7 (1.0-2.7) L Triglycerides Level 100 MG/DL (30-150) Cholesterol Level 125 MG/DL (< 200) LDL Cholesterol 63 mg/dL (<100) HDL Cholesterol 43 MG/DL (40-60) Cholesterol/HDL Ratio 2.9 (3.3-4.4) L Vitamin B12 Level 792 PG/ML (193-986) Folate 56.1 NG/ML (8.6-58.9) Thyroid Stimulating Hormone (TSH) 6.616 uiU/mL (0.358-3.740) POC Whole Blood Glucose 243 MG/DL (74-106) H Urine Eosinophils None seen (NONE SEEN) Test 11/23/19 12:33 11/23/19 17:50 POC Whole Blood Glucose 215 MG/DL (74-106) H 329 MG/DL (74-106) H Microbiology Date/Time Source Procedure Growth Status 11/22/19 15:35 Urine,Clean Catch Urine Culture - Preliminary Gram Negative Jim Resulted 11/22/19 15:35 Nasopharynx SARS-CoV-2 RdRp Gene Assay - Final Complete 11/22/19 02:15 Blood Blood Culture - Preliminary NO GROWTH AFTER 24 HOURS Resulted 11/22/19 02:00 Blood Blood Culture - Preliminary NO GROWTH AFTER 24 HOURS Resulted 11/21/19 23:30 Nasopharynx SARS-CoV-2 RdRp Gene Assay - Final Complete Intake and Output 11/22/19 11/23/19 19:00 07:00 Intake Total 300 ml Balance 300 ml Intake Oral 300 ml # Voids 3 4 # Bowel Movements 1 Objective PHYSICAL EXAMINATION: GENERAL: The patient is a well-developed and well-nourished female, no apparent distress. HEENT: Eyes, pupils equal and responsive to light and accommodation. Extraocular movements are intact. NECK: Supple without lymphadenopathy. CHEST: Lungs are clear to auscultation bilaterally without wheezes or rales. CARDIOVASCULAR: Regular rhythm and rate. S1, S2 are normal without murmurs, rubs, or gallops. ABDOMEN: Soft, nontender, and nondistended. Positive bowel sounds. No evidence of hepatosplenomegaly. Currently, no rebound or guarding noted. EXTREMITIES: Negative for clubbing, cyanosis, or edema. RECTAL: Not performed. GENITAL: Not performed. NEUROLOGIC: Cranial nerves II through XII are grossly intact without focal deficits. Motor strength is 5/5 bilaterally. Deep tendon reflexes are 2+, plantar. Assessment/Plan Assessment/Plan TREATMENT: 1. Chest pain/congestive heart failure. Cardiology consultation has been obtained with Dr. Pool Santana. Serial troponin levels will be performed. The patient's current BNP is greater than 16,000. An echocardiogram LVEF=60%. Await cardiolite stress test 2. Right lower lobe pneumonia. Pulmonary consultation has been obtained with Dr. Rodrigo Marroquin. The patient has been started empirically on azithromycin and ceftriaxone. Follow recommendations of Pulmonary. 3. Renal failure. A Nephrology consultation has been obtained with Dr. Austin Malone. Follow recommendations of Dr. Malone. Renal failure may be secondary to long-standing diabetes versus acute on chronic renal failure. 4. Hypertension. Continue hydralazine and amlodipine as above. 5. Diabetes type 2. NovoLog sliding scale has been instituted. Tony Reyes MD Nov 23, 2019 19:40
--- NOTE | 2019-11-23 19:44 | NUR ---
NURSE HAND-OFF REPORT: Important Events on Shift:pt will have a stress test tomorrow, she knows she will be NPO at midnight Patient Status: full code Diet: npo after midnigh Pending Orders: Pending Results/Labs: Pending MD notification: Latest Vital Signs: Temperature 98.1 , Pulse 78 , B/P 147 /60 , Respiratory Rate 20 , O2 SAT 96 , Room Air, O2 Flow Rate . Vital Sign Comment: EKG Rhythm: sr w/pvc's Rhythm change?: Y MD Notified?: N - MD Response: Latest Santiago Fall Score: 45 Fall Risk: High Risk Safety Measures: Call light Within Reach, Bed Alarm Zone 2, Side Rails Side Rails x2, Bed position Low and Locked. Fall Precautions: y Yellow Gown y Patient Fall Education y Report given to perry/rn.
--- NOTE | 2019-11-23 19:51 | NUR ---
NURSE NOTES: Patient received from Hermila MCCOY. Patient Alert and oriented x4 english speaking. Saturating well on Room Air. No s/s of distress. Endorsed that patient is for stress test tomorrow. Will put patient on NPO at midnight. Patient able to ambulate with cane to the restroom. IV site patent and intact on Right AC running venofer right now but Saline locked after. Patient wearing yellow gown and yellow socks. Call light and bedside table within reach. Will continue plan of care
--- NOTE | 2019-11-23 20:40 | NUR ---
NURSE NOTES: Received patient from Telemetry unit via bed, report was given by DARIUS Paulino. Patient is awake on bed, alert and oriented x 4. Oriented to room and Med-Surg unit. Belongings list checked and verified. On cardiac diet (CCHO medium), instructed and amenable. On room air, sating 94% with no shortness of breath reported at this time. IV site is on right AC g-20 saline lock that is intact and patent. Safety measures are in place, bed in lowest and locked position, side rails up x 2. Call light button and bedside table within reach, instructed to call for any assistance needed.
[2019-11-23 20:45] VITALS: BP 125/71
[2019-11-23] MEDS: Azithromycin 250mg tab ORAL SCH (21:30)
--- NOTE | 2019-11-23 23:30 | Consultation ---
DATE OF CONSULTATION: 11/22/2019 CARDIOLOGY CONSULTATION CONSULTING PHYSICIAN: Pool Santana M.D. REFERRING PHYSICIAN: Rodrigo Marroquin M.D. REASON FOR REFERRAL: Chest pain. HISTORY OF PRESENT ILLNESS: This is a 74-year-old female with history of diabetes and hypertension, presented to the hospital because of chest pain. She indicates the pain started on Wednesday night and it has been present all day and she eventually came to the hospital on Wednesday and when she got here, the pain has no longer been present. Her information is obtained from the patient through one of the staff that speaks in Latvian. She does not have any pain since being in the hospital. She describes an inflammatory sensation "in the chest." Does not get worse with walking or talking or taking a deep breath or coughing or twisting or turning or eating and she did have some dizziness at the time that she has this. She has never had this pain before and she has never had a stress test before. PAST MEDICAL HISTORY: Positive for diabetes and high blood pressure. No history of heart attack. No cancer. No stroke. No hepatitis or tuberculosis. No asthma or emphysema. No ulcers. No kidney problems, liver problems, thyroid problems, anemia, arthritis, HIV or AIDS. No blood clots noted. ALLERGIES: She is not allergic to any medications. SOCIAL HISTORY: Never smoked or drank alcoholic beverages. REVIEW OF SYSTEMS: GASTROINTESTINAL: No nausea, vomiting, diarrhea, or constipation. No black or bloody poop. GENITOURINARY: Negative. CONSTITUTIONAL: Negative. NEUROLOGICAL: Negative. PHYSICAL EXAMINATION: GENERAL: Shows to be elderly female, in no respiratory distress. NECK: Supple. No jugular venous distention. LUNGS: Clear to auscultation and percussion. CARDIAC: S1 is normal. S2 is normal. Regular rate and rhythm. No heaves, thrills, gallops, or rubs are noted. ABDOMEN: Soft. There is some tenderness to deep palpation in the epigastric area. No guarding. No rigidity. No rebound tenderness. EXTREMITIES: There is no edema. NEUROLOGICAL: She is awake, alert, responsive. LABORATORY AND DIAGNOSTIC DATA: White count was 10.6, up to 11.3; hemoglobin of 9.2, down to 9.0; and platelet count of 221, down to 213. Moderate normocytic normochromic anemia that is what the pathologist read. Sedimentation rate was 126, retic count of 1. Sodium was 138, potassium 4.8, chloride 105, bicarb 19, BUN of 48, creatinine 2.4, and glucose of 228. All 3 sets of cardiac enzymes since admission have been negative. ProBNP of 1600. Total protein is 7.7, albumin of 3.5. Coags, INR 1 and PTT of 37. Urinalysis is suggestive of too numerous to count wbc's and 0 to 2 rbcs, 2+ leukocyte esterase, and sodium of 94. INR 1, PTT of 37. A chest x-ray performed in the emergency room on the 6th showed cardiomegaly, bilateral right greater than left interstitial and intersperse edema versus infiltrate. Renal ultrasound was performed showed essentially unremarkable examination and an echocardiogram that was performed showed normal wall motion, ejection fraction of 60%, and moderate to severe mitral annular calcifications, aortic root calcification, mild mitral regurgitation, peak mitral valve gradient of 25 and mean of 7, and pulmonary systolic pressure of 57. ASSESSMENT AND PLAN: 1. Chest pain. 2. Diabetes mellitus. 3. Systemic hypertension. 4. Pulmonary hypertension. 5. Mitral annular calcification with calcific mild to moderate MS. The patient was seen in cardiac consultation. The pain has been present for a number of hours and in fact more than number of hours. Cardiac enzymes are all negative. She does have some pulmonary hypertension. Recommend a venous duplex study to make sure she does not have any deep venous thrombosis. She may need to be evaluated for other causes of pulmonary hypertension. Her wall motion on the echocardiogram is negative. If venous duplex is negative, then we will proceed with recommendation of myocardial perfusion imaging in light of the fact that she has significant risk factors for coronary disease. Pool Santana M.D. DR: CLAUDE JOB#: [id number] CC:
--- NOTE | 2019-11-23 23:40 | NUR ---
NURSE NOTES: Patient is schedule for LEXISCAN and NM myocardial perfusion with ejection fraction tomorrow 11/23. Instructed on NPO post midnight, amenable to instruction.
[2019-11-24] VITALS: BP 135/53
[2019-11-24 04:00] VITALS: BP 128/52
[2019-11-24] MEDS: NovoLOG Insulin Flexpen SUBQ SCH ×4 (06:00→20:53)
[2019-11-24] MEDS: HydrALAZINE 50mg tab ORAL SCH ×3 (06:01→22:13)
[2019-11-24 07:09] LABS: BASOPHILS % (AUTO) 0.6 % (0.0-2.0); HEMATOCRIT 24.1 % (37.0-47.0); HEMOGLOBIN 8.2 G/DL (12.0-16.0); MEAN CORPUSCULAR VOLUME 91 FL (80-99); MONOCYTES % (AUTO) 7.7 % (1.0-10.0); NEUTROPHILS % (AUTO) 71.7 % (45.0-75.0); PLATELET COUNT 224 K/UL (150-450); RED BLOOD COUNT 2.66 M/UL (4.20-5.40); RED CELL DISTRIBUTION WIDTH 12.8 % (11.6-14.8); WHITE BLOOD COUNT 7.5 K/UL (4.8-10.8)
--- NOTE | 2019-11-24 07:30 | NUR ---
NURSE NOTES: Received report from ursula RN , rounds made pt sleeping , breaths regular unlabored on RA, no s/o of distress, IV acces on the R AC locked , bed in low locked position, side rails upX2, call light with in reach, will continue to monitor
[2019-11-24 07:33] LABS: ALBUMIN 2.9 G/DL (3.4-5.0); ALBUMIN/GLOBULIN RATIO 0.7 (1.0-2.7); BILIRUBIN,TOTAL 0.3 MG/DL (0.2-1.0); CALCIUM 8.4 MG/DL (8.5-10.1); CREATININE 2.1 MG/DL (0.55-1.30); POTASSIUM 4.3 MMOL/L (3.5-5.1)
--- NOTE | 2019-11-24 07:34 | NUR ---
NURSE HAND-OFF: Important Events on Shift: Patient has been resting well the whole shift, no complaints made. Patient is schedule for Lexiscan and NM myocardial perfusion with ejection fraction today, NPO post midnight. Patient Status: Patient is asleep on bed, in stable condition with no complaints of pain the whole shift. Plan of care endorsed. Diet: Cardiac (CCHO Medium), NPO post midnight. Pending Orders: LEXISCAN and NM myocardial perfusuion with ejection fraction. Pending Results/Labs: Uric, Mg, Phos, CBC, CMP results Pending MD notification:none Latest Vital Signs: Temperature 98.4 , Pulse 77 , B/P 128 /52 , Respiratory Rate 18 , O2 SAT 96 , Room Air, O2 Flow Rate . Vital Sign Comment: stable Latest Santiago Fall Score: 60 Fall Risk: High Risk Safety Measures: Call light Within Reach, Bed Alarm Zone 1, Side Rails Side Rails x2, Bed position Low and Locked. Fall Precautions: Yellow Socks Yellow Gown Door Sign Patient Fall Education Report given to Natasha Madsen RN.
[2019-11-24 08:00] VITALS: BP 128/76
[2019-11-24 08:09] LABS: PHOSPHORUS 3.8 MG/DL (2.5-4.9)
--- NOTE | 2019-11-24 09:11 | NUR ---
RADIOLOGY DEPT., CHEST X-RAY PERFORMED.-P.DYE
[2019-11-24] MEDS: sitaGLIPtin 50mg tab ORAL SCH (10:08)
[2019-11-24] MEDS: Glimepiride 4mg tab ORAL SCH ×2 (10:09→17:38)
[2019-11-24] MEDS: Heparin 5000 units/ml inj SUBQ SCH ×2 (10:10→20:52)
--- NOTE | 2019-11-24 11:34 | Pulmonology Progress Note ---
Subjective ROS Limited/Unobtainable: No Constitutional: Reports: no symptoms HEENT: Repors: no symptoms Respiratory: Reports: no symptoms Allergies: Coded Allergies: No Known Allergies (Unverified , 11/21/19) Objective Last 24 Hour Vital Signs Date Time Temp Pulse Resp B/P (MAP) Pulse Ox O2 Delivery O2 Flow Rate FiO2 11/24/19 10:09 83 128/76 11/24/19 08:00 98.6 83 17 128/76 (93) 96 11/24/19 06:01 128/52 11/24/19 04:00 98.4 77 18 128/52 (77) 96 11/24/19 00:00 98.1 74 18 135/53 (80) 95 11/23/19 21:34 135/63 11/23/19 21:10 Room Air 11/23/19 20:45 98.7 77 16 125/71 (89) 94 11/23/19 17:42 78 147/60 11/23/19 16:00 73 11/23/19 16:00 98.1 78 20 147/60 (89) 96 11/23/19 14:47 121/60 11/23/19 12:00 71 11/23/19 12:00 96.7 91 19 121/60 (80) 98 Intake and Output 11/23/19 11/24/19 19:00 07:00 Intake Total 420 ml 350 ml Balance 420 ml 350 ml Intake Oral 420 ml 350 ml # Voids 2 3 # Bowel Movements 1 General Appearance: WD/WN HEENT: normocephalic, atraumatic Respiratory: chest wall non-tender, lungs clear, normal breath sounds, no respiratory distress Abdomen: normal bowel sounds, soft, non tender Genitourinary: normal external genitalia Extremities: no clubbing Skin: no rash Neurologic: food adviser II-XII grossly normal Lymphatic: no groin adenopathy Microbiology Date/Time Source Procedure Growth Status 11/22/19 15:35 Urine,Clean Catch Urine Culture - Preliminary Gram Negative Jim Resulted 11/22/19 15:35 Nasopharynx SARS-CoV-2 RdRp Gene Assay - Final Complete 11/22/19 02:15 Blood Blood Culture - Preliminary NO GROWTH AFTER 48 HOURS Resulted 11/22/19 02:00 Blood Blood Culture - Preliminary NO GROWTH AFTER 48 HOURS Resulted 11/21/19 23:30 Nasopharynx SARS-CoV-2 RdRp Gene Assay - Final Complete Laboratory Tests 11/23/19 12:33: POC Whole Blood Glucose 215H 11/23/19 17:50: POC Whole Blood Glucose 329H 11/23/19 21:27: POC Whole Blood Glucose 266H 11/24/19 05:59: POC Whole Blood Glucose 158H 11/24/19 06:00: White Blood Count 7.5, Red Blood Count 2.66L, Hemoglobin 8.2L, Hematocrit 24.1L, Mean Corpuscular Volume 91, Mean Corpuscular Hemoglobin 30.8, Mean Corpuscular Hemoglobin Concent 33.9, Red Cell Distribution Width 12.8, Platelet Count 224, Mean Platelet Volume 6.7, Neutrophils (%) (Auto) 71.7, Lymphocytes (%) (Auto) 15.0L, Monocytes (%) (Auto) 7.7, Eosinophils (%) (Auto) 5.0H, Basophils (%) (Auto) 0.6, Sodium Level 140, Potassium Level 4.3, Chloride Level 107, Carbon Dioxide Level 20L, Anion Gap 13, Blood Urea Nitrogen 35H, Creatinine 2.1H, Melodie mat Glomerular Filtration Rate 22.9, Glucose Level 165H, Uric Acid 5.8, Calcium Level 8.4L, Phosphorus Level 3.8, Magnesium Level 2.5H, Total Bilirubin 0.3, Aspartate Amino Transf (AST/SGOT) 14L, Alanine Aminotransferase (ALT/SGPT) 13, Alkaline Phosphatase 87, Pro-B-Type Natriuretic Peptide 9495H, Total Protein 7.1, Albumin 2.9L, Globulin 4.2, Albumin/Globulin Ratio 0.7L, Free Thyroxine 1.30, Free Triiodothyronine 2.0L Current Medications Medications (Trade) Dose Ordered Sig/Rosetta Route PRN Reason Start Time Stop Time Status Last Admin Dose Admin Acetaminophen (Tylenol) 650 mg Q4H PRN ORAL Mild Pain(Pain Scale 1-3)fever 11/22/19 08:30 12/22/19 08:29 11/22/19 16:58 Acetaminophen/ Codeine Phosphate (Tylenol #3) 1 tab Q6H PRN ORAL Severe Pain (Pain Scale 7-10) 11/22/19 08:30 11/29/19 08:29 11/22/19 10:25 Amlodipine Besylate (Norvasc) 5 mg BID ORAL 11/23/19 18:00 12/22/19 08:59 11/24/19 10:09 Azithromycin (Zithromax) 250 mg QHS ORAL 11/22/19 21:00 11/29/19 20:59 11/23/19 21:30 Ceftriaxone Sodium 1 gm/ Sodium Chloride 50 ml @ 100 mls/hr QHS IVPB 11/22/19 21:00 11/29/19 20:59 11/23/19 21:30 Dextrose (Dextrose 50%) 25 ml Q30M PRN IV Hypoglycemia 11/22/19 08:30 02/20/20 08:29 Dextrose (Dextrose 50%) 50 ml Q30M PRN IV Hypoglycemia 11/22/19 08:30 02/20/20 08:29 Epoetin Long (Epoetin Long-EPBX(NON ESRD)) 10,000 unit WED-WED-WED SUBQ 11/24/19 21:00 02/22/20 20:59 Glimepiride (AmaryL) 4 mg BID ORAL 11/22/19 09:00 12/22/19 08:59 11/24/19 10:09 Heparin Sodium (Porcine) (Heparin 5000 units/ml) 5,000 units EVERY 12 HOURS SUBQ 11/22/19 09:00 01/06/20 08:59 11/24/19 10:10 Hydralazine HCl (Apresoline) 50 mg Q8HR ORAL 11/22/19 14:00 02/20/20 13:59 11/24/19 06:01 Insulin Aspart (NovoLOG) BEFORE MEALS AND HS SUBQ 11/22/19 11:30 02/20/20 11:29 11/23/19 21:37 Nateglinide (Starlix) 120 mg TIAC ORAL 11/22/19 11:30 12/22/19 11:29 11/23/19 17:41 Ondansetron HCl (Zofran) 4 mg Q4H PRN IVP Nausea & Vomiting 11/22/19 08:30 12/22/19 08:29 Promethazine HCl/ Codeine (Phenergan with Codeine) 5 ml Q4H PRN ORAL For Cough 11/22/19 11:15 12/22/19 11:14 Regadenoson (Lexiscan) 0.4 mg ONCE PRN IV stress test 11/23/19 19:30 11/25/19 19:29 Sitagliptin Phosphate (Januvia) 50 mg DAILY ORAL 11/24/19 09:00 12/22/19 08:59 11/24/19 10:08 Assessment/Plan Problems: (1) ACS (acute coronary syndrome) (2) Community acquired pneumonia (3) Acute on chronic renal insufficiency (4) History of hypertension (5) History of diabetes mellitus Assessment/Plan c/o constipation venous doppler of legs was negative for DVT troponin are all negative Echocardiogram, EF WNL, moderate Pulmonary hypertension cardiology appreciated sputum induction titrate fio2 to sat of 92% antitussives symptomatic treatment sliding scale diabetic diet Rodrigo Marroquin MD Nov 24, 2019 11:34
[2019-11-24 12:00] VITALS: BP 150/60
--- NOTE | 2019-11-24 12:17 | Nephrology Progress Note ---
Assessment/Plan Problem List: (1) Acute on chronic renal insufficiency (2) History of diabetes mellitus (3) History of hypertension (4) Normocytic anemia Assessment Renal failure, most likely acute on chronic Rule out diabetic nephropathy Diabetes mellitus Coronary artery disease Anemia, related to kidney disease and or iron deficiency Plan November 23: Labs reviewed. Serum creatinine stable and slightly lower. Due for stress test by cardiology. Continue per consultants. November 22: Start the patient on subcu Epogen and IV iron. Start sliding scale insulin. Kidney ultrasound: Negative for hydronephrosis 2D echocardiogram: Ejection fraction 60% Urine analysis, noted Urine spot electrolyte, noted Anemia work-up Monitor renal parameters Avoid nephrotoxic's Subjective ROS Limited/Unobtainable: No Constitutional: Reports: malaise Objective Objective Last 24 Hour Vital Signs Date Time Temp Pulse Resp B/P (MAP) Pulse Ox O2 Delivery O2 Flow Rate FiO2 11/24/19 10:09 83 128/76 11/24/19 08:00 98.6 83 17 128/76 (93) 96 11/24/19 06:01 128/52 11/24/19 04:00 98.4 77 18 128/52 (77) 96 11/24/19 00:00 98.1 74 18 135/53 (80) 95 11/23/19 21:34 135/63 11/23/19 21:10 Room Air 11/23/19 20:45 98.7 77 16 125/71 (89) 94 11/23/19 17:42 78 147/60 11/23/19 16:00 73 11/23/19 16:00 98.1 78 20 147/60 (89) 96 11/23/19 14:47 121/60 Intake and Output 11/23/19 11/24/19 19:00 07:00 Intake Total 420 ml 350 ml Balance 420 ml 350 ml Intake Oral 420 ml 350 ml # Voids 2 3 # Bowel Movements 1 Current Medications Medications (Trade) Dose Ordered Sig/Rosetta Route PRN Reason Start Time Stop Time Status Last Admin Dose Admin Acetaminophen (Tylenol) 650 mg Q4H PRN ORAL Mild Pain(Pain Scale 1-3)fever 11/22/19 08:30 12/22/19 08:29 11/22/19 16:58 Acetaminophen/ Codeine Phosphate (Tylenol #3) 1 tab Q6H PRN ORAL Severe Pain (Pain Scale 7-10) 11/22/19 08:30 11/29/19 08:29 11/22/19 10:25 Amlodipine Besylate (Norvasc) 5 mg BID ORAL 11/23/19 18:00 12/22/19 08:59 11/24/19 10:09 Azithromycin (Zithromax) 250 mg QHS ORAL 11/22/19 21:00 11/29/19 20:59 11/23/19 21:30 Ceftriaxone Sodium 1 gm/ Sodium Chloride 50 ml @ 100 mls/hr QHS IVPB 11/22/19 21:00 11/29/19 20:59 11/23/19 21:30 Dextrose (Dextrose 50%) 25 ml Q30M PRN IV Hypoglycemia 11/22/19 08:30 02/20/20 08:29 Dextrose (Dextrose 50%) 50 ml Q30M PRN IV Hypoglycemia 11/22/19 08:30 02/20/20 08:29 Epoetin Long (Epoetin Long-EPBX(NON ESRD)) 10,000 unit WED-WED-WED SUBQ 11/24/19 21:00 02/22/20 20:59 Glimepiride (AmaryL) 4 mg BID ORAL 11/22/19 09:00 12/22/19 08:59 11/24/19 10:09 Heparin Sodium (Porcine) (Heparin 5000 units/ml) 5,000 units EVERY 12 HOURS SUBQ 11/22/19 09:00 01/06/20 08:59 11/24/19 10:10 Hydralazine HCl (Apresoline) 50 mg Q8HR ORAL 11/22/19 14:00 02/20/20 13:59 11/24/19 06:01 Insulin Aspart (NovoLOG) BEFORE MEALS AND HS SUBQ 11/22/19 11:30 02/20/20 11:29 11/23/19 21:37 Nateglinide (Starlix) 120 mg TIAC ORAL 11/22/19 11:30 12/22/19 11:29 11/24/19 11:36 Ondansetron HCl (Zofran) 4 mg Q4H PRN IVP Nausea & Vomiting 11/22/19 08:30 12/22/19 08:29 Polyethylene Glycol (Miralax) 17 gm BEDTIME ORAL 11/24/19 21:00 12/24/19 20:59 Promethazine HCl/ Codeine (Phenergan with Codeine) 5 ml Q4H PRN ORAL For Cough 11/22/19 11:15 12/22/19 11:14 Regadenoson (Lexiscan) 0.4 mg ONCE PRN IV stress test 11/23/19 19:30 11/25/19 19:29 Sitagliptin Phosphate (Januvia) 50 mg DAILY ORAL 11/24/19 09:00 12/22/19 08:59 11/24/19 10:08 Laboratory Tests 11/23/19 12:33: POC Whole Blood Glucose 215H 11/23/19 17:50: POC Whole Blood Glucose 329H 11/23/19 21:27: POC Whole Blood Glucose 266H 11/24/19 05:59: POC Whole Blood Glucose 158H 11/24/19 06:00: White Blood Count 7.5, Red Blood Count 2.66L, Hemoglobin 8.2L, Hematocrit 24.1L, Mean Corpuscular Volume 91, Mean Corpuscular Hemoglobin 30.8, Mean Corpuscular Hemoglobin Concent 33.9, Red Cell Distribution Width 12.8, Platelet Count 224, Mean Platelet Volume 6.7, Neutrophils (%) (Auto) 71.7, Lymphocytes (%) (Auto) 15.0L, Monocytes (%) (Auto) 7.7, Eosinophils (%) (Auto) 5.0H, Basophils (%) (Auto) 0.6, Sodium Level 140, Potassium Level 4.3, Chloride Level 107, Carbon Dioxide Level 20L, Anion Gap 13, Blood Urea Nitrogen 35H, Creatinine 2.1H, Estimat Glomerular Filtration Rate 22.9, Glucose Level 165H, Uric Acid 5.8, Calcium Level 8.4L, Phosphorus Level 3.8, Magnesium Level 2.5H, Total Bilirubin 0.3, Aspartate Amino Transf (AST/SGOT) 14L, Alanine Aminotransferase (ALT/SGPT) 13, Alkaline Phosphatase 87, Pro-B-Type Natriuretic Peptide 9495H, Total Protein 7.1, Albumin 2.9L, Globulin 4.2, Albumin/Globulin Ratio 0.7L, Free Thyroxine 1.30, Free Triiodothyronine 2.0L 11/24/19 11:34: POC Whole Blood Glucose [Pending] Height (Feet): 5 Height (Inches): 0.00 Weight (Pounds): 145 Cardiovascular: tachycardia Respiratory/Chest: decreased breath sounds Abdomen: distended Austin Malone MD Nov 24, 2019 12:17
--- NOTE | 2019-11-24 12:42 | Infectious Diseases Prog Note ---
Assessment/Plan Assessment: COVID19 neg x2 (11/20, Rapid COVID PCR neg) CAP -11/20 CXR: Cardiomegaly. Bilateral right greater than left interstitial and airspace edema versus infiltrate Low grade fever; improving Leukocytosis, SP -11/21 Bcx NTD UTI -u/a wbc tnct, nit neg, leuk +3; ucx >100k GNR Chest pain NIKI, improving DM2 HTN CHF CAD Plan: -Continue empiric Ceftriaxone and Azithromycin #3/ -f/u cx -Monitor CBC/CMP, temperatures -COVID19 neg x2 Thank you for this consultation. Will continue to follow along with you. Discussed with RN. Subjective Allergies: Coded Allergies: No Known Allergies (Unverified , 11/21/19) afebrile in >36hrs bcx NTD no leukocytosis Objective Last 24 Hour Vital Signs Date Time Temp Pulse Resp B/P (MAP) Pulse Ox O2 Delivery O2 Flow Rate FiO2 11/24/19 12:00 97.8 79 18 150/60 (90) 96 11/24/19 10:09 83 128/76 11/24/19 09:00 Room Air 11/24/19 08:00 98.6 83 17 128/76 (93) 96 11/24/19 06:01 128/52 11/24/19 04:00 98.4 77 18 128/52 (77) 96 11/24/19 00:00 98.1 74 18 135/53 (80) 95 11/23/19 21:34 135/63 11/23/19 21:10 Room Air 11/23/19 20:45 98.7 77 16 125/71 (89) 94 11/23/19 17:42 78 147/60 11/23/19 16:00 73 11/23/19 16:00 98.1 78 20 147/60 (89) 96 11/23/19 14:47 121/60 Height (Feet): 5 Height (Inches): 0.00 Weight (Pounds): 145 General Appearance: WD/WN Lines, tubes and drains: peripheral HEENT: normocephalic, atraumatic Neck: non-tender, normal alignment, supple, normal inspection Respiratory/Chest: chest wall non-tender, lungs clear, normal breath sounds, rhonchi - right Cardiovascular/Chest: normal peripheral pulses, normal rate, regularly irregular Abdomen: normal bowel sounds, non tender Microbiology Date/Time Source Procedure Growth Status 11/22/19 15:35 Urine,Clean Catch Urine Culture - Preliminary Gram Negative Jim Resulted 11/22/19 15:35 Nasopharynx SARS-CoV-2 RdRp Gene Assay - Final Complete 11/22/19 02:15 Blood Blood Culture - Preliminary NO GROWTH AFTER 48 HOURS Resulted 11/22/19 02:00 Blood Blood Culture - Preliminary NO GROWTH AFTER 48 HOURS Resulted 11/21/19 23:30 Nasopharynx SARS-CoV-2 RdRp Gene Assay - Final Complete Laboratory Tests Test 11/23/19 17:50 11/23/19 21:27 11/24/19 05:59 11/24/19 06:00 POC Whole Blood Glucose 329 MG/DL (74-106) H 266 MG/DL (74-106) H 158 MG/DL (74-106) H White Blood Count 7.5 K/UL (4.8-10.8) Red Blood Count 2.66 M/UL (4.20-5.40) L Hemoglobin 8.2 G/DL (12.0-16.0) L Hematocrit 24.1 % (37.0-47.0) L Mean Corpuscular Volume 91 FL (80-99) Mean Corpuscular Hemoglobin 30.8 PG (27.0-31.0) Mean Corpuscular Hemoglobin Concent 33.9 G/DL (32.0-36.0) Red Cell Distribution Width 12.8 % (11.6-14.8) Platelet Count 224 K/UL (150-450) Mean Platelet Volume 6.7 FL (6.5-10.1) Neutrophils (%) (Auto) 71.7 % (45.0-75.0) Lymphocytes (%) (Auto) 15.0 % (20.0-45.0) L Monocytes (%) (Auto) 7.7 % (1.0-10.0) Eosinophils (%) (Auto) 5.0 % (0.0-3.0) H Basophils (%) (Auto) 0.6 % (0.0-2.0) Sodium Level 140 MMOL/L (136-145) Potassium Level 4.3 MMOL/L (3.5-5.1) Chloride Level 107 MMOL/L (98-107) Carbon Dioxide Level 20 MMOL/L (21-32) L Anion Gap 13 mmol/L (5-15) Blood Urea Nitrogen 35 mg/dL (7-18) H Creatinine 2.1 MG/DL (0.55-1.30) H Estimat Glomerular Filtration Rate 22.9 mL/min (>60) Glucose Level 165 MG/DL (74-106) H Uric Acid 5.8 MG/DL (2.6-7.2) Calcium Level 8.4 MG/DL (8.5-10.1) L Phosphorus Level 3.8 MG/DL (2.5-4.9) Magnesium Level 2.5 MG/DL (1.8-2.4) H Total Bilirubin 0.3 MG/DL (0.2-1.0) Aspartate Amino Transf (AST/SGOT) 14 U/L (15-37) L Alanine Aminotransferase (ALT/SGPT) 13 U/L (12-78) Alkaline Phosphatase 87 U/L (46-116) Pro-B-Type Natriuretic Peptide 9495 pg/mL (0-125) H Total Protein 7.1 G/DL (6.4-8.2) Albumin 2.9 G/DL (3.4-5.0) L Globulin 4.2 g/dL Albumin/Globulin Ratio 0.7 (1.0-2.7) L Free Thyroxine 1.30 NG/DL (0.76-1.46) Free Triiodothyronine 2.0 pg/mL (2.3-4.2) L Test 11/24/19 11:34 POC Whole Blood Glucose Pending Current Medications Medications (Trade) Dose Ordered Sig/Rosetta Route PRN Reason Start Time Stop Time Status Last Admin Dose Admin Acetaminophen (Tylenol) 650 mg Q4H PRN ORAL Mild Pain(Pain Scale 1-3)fever 11/22/19 08:30 12/22/19 08:29 11/22/19 16:58 Acetaminophen/ Codeine Phosphate (Tylenol #3) 1 tab Q6H PRN ORAL Severe Pain (Pain Scale 7-10) 11/22/19 08:30 11/29/19 08:29 11/22/19 10:25 Amlodipine Besylate (Norvasc) 5 mg BID ORAL 11/23/19 18:00 11/6/20 08:59 11/24/19 10:09 Azithromycin (Zithromax) 250 mg QHS ORAL 11/22/19 21:00 11/29/19 20:59 11/23/19 21:30 Ceftriaxone Sodium 1 gm/ Sodium Chloride 50 ml @ 100 mls/hr QHS IVPB 11/22/19 21:00 11/29/19 20:59 11/23/19 21:30 Dextrose (Dextrose 50%) 25 ml Q30M PRN IV Hypoglycemia 11/22/19 08:30 02/20/20 08:29 Dextrose (Dextrose 50%) 50 ml Q30M PRN IV Hypoglycemia 11/22/19 08:30 02/20/20 08:29 Epoetin Long (Epoetin Long-EPBX(NON ESRD)) 10,000 unit WED- SUBQ 11/24/19 21:00 02/22/20 20:59 Glimepiride (AmaryL) 4 mg BID ORAL 11/22/19 09:00 12/22/19 08:59 11/24/19 10:09 Heparin Sodium (Porcine) (Heparin 5000 units/ml) 5,000 units EVERY 12 HOURS SUBQ 11/22/19 09:00 01/06/20 08:59 11/24/19 10:10 Hydralazine HCl (Apresoline) 50 mg Q8HR ORAL 11/22/19 14:00 02/20/20 13:59 11/24/19 06:01 Insulin Aspart (NovoLOG) BEFORE MEALS AND HS SUBQ 11/22/19 11:30 02/20/20 11:29 11/23/19 21:37 Nateglinide (Starlix) 120 mg TIAC ORAL 11/22/19 11:30 12/22/19 11:29 11/24/19 11:36 Ondansetron HCl (Zofran) 4 mg Q4H PRN IVP Nausea & Vomiting 11/22/19 08:30 12/22/19 08:29 Polyethylene Glycol (Miralax) 17 gm BEDTIME ORAL 11/24/19 21:00 12/24/19 20:59 Promethazine HCl/ Codeine (Phenergan with Codeine) 5 ml Q4H PRN ORAL For Cough 11/22/19 11:15 12/22/19 11:14 Regadenoson (Lexiscan) 0.4 mg ONCE PRN IV stress test 11/23/19 19:30 11/25/19 19:29 Sitagliptin Phosphate (Januvia) 50 mg DAILY ORAL 11/24/19 09:00 12/22/19 08:59 11/24/19 10:08 Hortensia Hoffman M.D. Nov 24, 2019 12:42
--- NOTE | 2019-11-24 15:18 | Diagnostic Imaging Report ---
Indication: Dyspnea Technique: One view of the chest Comparison: 11/21/2019 Findings: Bilateral interstitial and airspace edema versus infiltrates appear stable to minimally improved. The heart remains enlarged. The pleural spaces are clear. Impression: Stable to minimally improved bilateral interstitial and airspace edema versus infiltrates.
--- NOTE | 2019-11-24 15:19 | NUR ---
CASE MANAGEMENT: REVIEW 11/24/2019 SI:ACUTE ISCHEMIC HEART DISEASE. PNA. T 97.8 HR 79 RR 18 B/P 150/60 SATS 96% ON RA LABS: CO2 20 BUN 35 CR 2.1 GLU 165 CA 8.4 MG 2.5 AST 14 IS;AMARYL PO BID NORVASC PO BID JANUVIA PO QD INSULIN ASPART SUBQ AC/HS CEFTRIAXONE IV QHS AZITHROMYCIN PO QHS MED/SURG PLAN OF CARE: LEXISCAN AND MYOCARDIAL PERF TEST
--- NOTE | 2019-11-24 15:58 | Internal Med Progress Note ---
Subjective Physician Name Morro Rodríguez Attending Physician Morro Rodríguez MD Current Medications Medications (Trade) Dose Ordered Sig/Rosetta Route PRN Reason Start Time Stop Time Status Last Admin Dose Admin Acetaminophen (Tylenol) 650 mg Q4H PRN ORAL Mild Pain(Pain Scale 1-3)fever 11/22/19 08:30 12/22/19 08:29 11/22/19 16:58 Acetaminophen/ Codeine Phosphate (Tylenol #3) 1 tab Q6H PRN ORAL Severe Pain (Pain Scale 7-10) 11/22/19 08:30 11/29/19 08:29 11/22/19 10:25 Amlodipine Besylate (Norvasc) 5 mg BID ORAL 11/23/19 18:00 12/22/19 08:59 11/24/19 10:09 Azithromycin (Zithromax) 250 mg QHS ORAL 11/22/19 21:00 11/29/19 20:59 11/23/19 21:30 Ceftriaxone Sodium 1 gm/ Sodium Chloride 50 ml @ 100 mls/hr QHS IVPB 11/22/19 21:00 11/29/19 20:59 11/23/19 21:30 Dextrose (Dextrose 50%) 25 ml Q30M PRN IV Hypoglycemia 11/22/19 08:30 02/20/20 08:29 Dextrose (Dextrose 50%) 50 ml Q30M PRN IV Hypoglycemia 11/22/19 08:30 02/20/20 08:29 Epoetin Long (Epoetin Long-EPBX(NON ESRD)) 10,000 unit WED-WED-WED SUBQ 11/24/19 21:00 02/22/20 20:59 Glimepiride (AmaryL) 4 mg BID ORAL 11/22/19 09:00 12/22/19 08:59 11/24/19 10:09 Heparin Sodium (Porcine) (Heparin 5000 units/ml) 5,000 units EVERY 12 HOURS SUBQ 11/22/19 09:00 01/06/20 08:59 11/24/19 10:10 Hydralazine HCl (Apresoline) 50 mg Q8HR ORAL 11/22/19 14:00 02/20/20 13:59 11/24/19 15:19 Insulin Aspart (NovoLOG) BEFORE MEALS AND HS SUBQ 11/22/19 11:30 02/20/20 11:29 11/23/19 21:37 Nateglinide (Starlix) 120 mg TIAC ORAL 11/22/19 11:30 12/22/19 11:29 11/24/19 11:36 Ondansetron HCl (Zofran) 4 mg Q4H PRN IVP Nausea & Vomiting 11/22/19 08:30 12/22/19 08:29 Polyethylene Glycol (Miralax) 17 gm BEDTIME ORAL 11/24/19 21:00 12/24/19 20:59 Promethazine HCl/ Codeine (Phenergan with Codeine) 5 ml Q4H PRN ORAL For Cough 11/22/19 11:15 12/22/19 11:14 Regadenoson (Lexiscan) 0.4 mg ONCE PRN IV stress test 11/23/19 19:30 11/25/19 19:29 11/24/19 15:54 Sitagliptin Phosphate (Januvia) 50 mg DAILY ORAL 11/24/19 09:00 12/22/19 08:59 11/24/19 10:08 Allergies: Coded Allergies: No Known Allergies (Unverified , 11/21/19) Subjective rich, alert, responsive, WBC: 7.5, daughter is at the bedside, complained about constipation. Objective Last Vital Signs Date Time Temp Pulse Resp B/P (MAP) Pulse Ox O2 Delivery O2 Flow Rate FiO2 11/24/19 15:19 152/65 11/24/19 12:00 97.8 79 18 96 11/24/19 09:00 Room Air Laboratory Tests Test 11/23/19 17:50 11/23/19 21:27 11/24/19 05:59 11/24/19 06:00 POC Whole Blood Glucose 329 MG/DL (74-106) H 266 MG/DL (74-106) H 158 MG/DL (74-106) H White Blood Count 7.5 K/UL (4.8-10.8) Red Blood Count 2.66 M/UL (4.20-5.40) L Hemoglobin 8.2 G/DL (12.0-16.0) L Hematocrit 24.1 % (37.0-47.0) L Mean Corpuscular Volume 91 FL (80-99) Mean Corpuscular Hemoglobin 30.8 PG (27.0-31.0) Mean Corpuscular Hemoglobin Concent 33.9 G/DL (32.0-36.0) Red Cell Distribution Width 12.8 % (11.6-14.8) Platelet Count 224 K/UL (150-450) Mean Platelet Volume 6.7 FL (6.5-10.1) Neutrophils (%) (Auto) 71.7 % (45.0-75.0) Lymphocytes (%) (Auto) 15.0 % (20.0-45.0) L Monocytes (%) (Auto) 7.7 % (1.0-10.0) Eosinophils (%) (Auto) 5.0 % (0.0-3.0) H Basophils (%) (Auto) 0.6 % (0.0-2.0) Sodium Level 140 MMOL/L (136-145) Potassium Level 4.3 MMOL/L (3.5-5.1) Chloride Level 107 MMOL/L (98-107) Carbon Dioxide Level 20 MMOL/L (21-32) L Anion Gap 13 mmol/L (5-15) Blood Urea Nitrogen 35 mg/dL (7-18) H Creatinine 2.1 MG/DL (0.55-1.30) H Estimat Glomerular Filtration Rate 22.9 mL/min (>60) Glucose Level 165 MG/DL (74-106) H Uric Acid 5.8 MG/DL (2.6-7.2) Calcium Level 8.4 MG/DL (8.5-10.1) L Phosphorus Level 3.8 MG/DL (2.5-4.9) Magnesium Level 2.5 MG/DL (1.8-2.4) H Total Bilirubin 0.3 MG/DL (0.2-1.0) Aspartate Amino Transf (AST/SGOT) 14 U/L (15-37) L Alanine Aminotransferase (ALT/SGPT) 13 U/L (12-78) Alkaline Phosphatase 87 U/L (46-116) Pro-B-Type Natriuretic Peptide 9495 pg/mL (0-125) H Total Protein 7.1 G/DL (6.4-8.2) Albumin 2.9 G/DL (3.4-5.0) L Globulin 4.2 g/dL Albumin/Globulin Ratio 0.7 (1.0-2.7) L Free Thyroxine 1.30 NG/DL (0.76-1.46) Free Triiodothyronine 2.0 pg/mL (2.3-4.2) L Test 11/24/19 11:34 POC Whole Blood Glucose Pending Microbiology Date/Time Source Procedure Growth Status 11/22/19 15:35 Urine,Clean Catch Urine Culture - Preliminary Gram Negative Jim Resulted 11/22/19 15:35 Nasopharynx SARS-CoV-2 RdRp Gene Assay - Final Complete 11/22/19 02:15 Blood Blood Culture - Preliminary NO GROWTH AFTER 48 HOURS Resulted 11/22/19 02:00 Blood Blood Culture - Preliminary NO GROWTH AFTER 48 HOURS Resulted 11/21/19 23:30 Nasopharynx SARS-CoV-2 RdRp Gene Assay - Final Complete Intake and Output 11/23/19 11/24/19 19:00 07:00 Intake Total 420 ml 350 ml Balance 420 ml 350 ml Intake Oral 420 ml 350 ml # Voids 2 3 # Bowel Movements 1 Objective Physical Exam General: No acute distress, awake and alert HEENT: NCAT, sclera anicteric, PERRL, EOMI. Neck: Supple, no significant jugular venous distention, Lungs: fair inspiratory effort, clear to auscultation bilaterally, no Wheeze or Rales. Heart: Regular rate and rhythm, normal S1/S2, no murmurs/gallops Abdomen: soft, nontender, + distended. Normoactive bowel sounds. / Rectal: Refused and deferred. Extremities: No Cyanosis , clubbing or edema. Neuro: A&O x 3, Able to move all extremities Skin: warm, no rashes or lesions Psych: Normal mood and affect Assessment/Plan Assessment/Plan ASSESSMENT: This is a 74-year-old female: 1. Chest pain. 2. Right lower lobe pneumonia. 3. Congestive heart failure. 4. Renal failure. 5. Hypertension. 6. Diabetes type 2. 7. GNR UTI. TREATMENT: 1. Chest pain/congestive heart failure. Cardiology consultation has been obtained with Dr. Pool Santana. Serial troponin levels will be performed. The patient's current BNP is greater than 16,000. An echocardiogram is pending. Follow recommendations of Cardiology. 2. Right lower lobe pneumonia. Pulmonary consultation has been obtained with Dr. Rodrigo Marroquin. Abx empirically on azithromycin and ceftriaxone. 3. Renal failure. A Nephrology consultation has been obtained with Dr. Austin Malone. Follow recommendations of Dr. Malone. Renal failure may be secondary to long-standing diabetes versus acute on chronic renal failure. 4. Hypertension. Continue hydralazine and amlodipine as above. 5. Diabetes type 2. NovoLog sliding scale has been instituted. start patient on MiraLAX. Discussed with the daughter extensively at the bedside. CODE STATUS: Full code. DVT prophylaxis: Heparin subcu Monitor culture. Stress test today: None ischemia. Morro Rodríguez MD Nov 24, 2019 15:58
[2019-11-24 16:00] VITALS: BP 152/65
--- NOTE | 2019-11-24 17:02 | Diagnostic Imaging Report ---
Indications: Chest pain Technique: Single day single isotope protocol utilized. Initially, resting images obtained using IV administration 10.5 millicuries 99M technetium Myoview. Subsequently, patient underwent lexiscan stress testing. See cardiology report for details. During Lexiscan infusion, IV administration 30.9 mCi 99 M technetium Myoview. SPECT and planar images obtained. SPECT images gated to 8 phases of the cardiac cycle were also obtained, and reformatted into cine images for evaluation of ejection fraction. Comparison: none Findings: Presence or absence of symptoms during infusion is not described on the cardiology report. The cardiology report describes resting EKG showing sinus rhythm with a PVC but no ST changes. Imaging demonstrates no fixed nor reversible poststress perfusion defects. Normal left ventricular chamber size. Calculated post stress ejection fraction 76%. No focal wall motion abnormality Impression: Nonischemic clinical response to pharmacologic stress, per cardiology report Nonischemic electrocardiographic response to pharmacologic stress, per cardiology report No imaging findings to suggest ischemia, at level of stress achieved. Calculated post stress ejection fraction greater than 70%
--- NOTE | 2019-11-24 19:12 | NUR ---
NURSE HAND-OFF: Important Events on Shift: Patient Status: stable Diet: cardiac Pending Orders: Pending Results/Labs: Pending MD notification: Latest Vital Signs: Temperature 98.2 , Pulse 83 , B/P 152 /65 , Respiratory Rate 18 , O2 SAT 96 , Room Air, O2 Flow Rate . Vital Sign Comment: Latest Santiago Fall Score: 45 Fall Risk: High Risk Safety Measures: Call light Within Reach, Bed Alarm Zone 1, Side Rails Side Rails x2, Bed position Low and Locked. Fall Precautions: Yellow Socks Yellow Gown Door Sign Patient Fall Education Report given to TAM MCCOY
--- NOTE | 2019-11-24 19:35 | NUR ---
NURSE NOTES: Received report from Bernabe MCCOY. Rounding is done. Patient is a/ox4. Denied any pain at this time. No any distress noted at this time. Breathing is even and unlabored. IV site is intact and patent. Bed is on alarm, locked, and lowest position. Call light within reach. Will continue to monitor.
[2019-11-24 20:00] VITALS: BP 151/63
[2019-11-24] MEDS: Azithromycin 250mg tab ORAL SCH (20:51)
[2019-11-24] MEDS: Miralax 17gm pkt ORAL SCH (20:51)
[2019-11-24] MEDS: Epoetin Alfa-EPBX (NON ESRD)10,000 unit/ml vial SUBQ SCH (20:59)
[2019-11-24] MEDS ORDERED: Miralax 17gm pkt ORAL SCH (21:30)
[2019-11-25] VITALS: BP 145/55
[2019-11-25 04:00] VITALS: BP 151/57
[2019-11-25] MEDS: NovoLOG Insulin Flexpen SUBQ SCH ×4 (05:47→21:32)
[2019-11-25] MEDS: HydrALAZINE 50mg tab ORAL SCH ×3 (05:47→21:18)
--- NOTE | 2019-11-25 06:02 | NUR ---
NURSE NOTES: Ronn Mendes from lab called for result of Eosinephil urine; + ESBL.
[2019-11-25 06:04] LABS: BASOPHILS % (AUTO) 0.8 % (0.0-2.0); EOSINOPHILS % (AUTO) 5.7 % (0.0-3.0); HEMATOCRIT 25.2 % (37.0-47.0); HEMOGLOBIN 8.5 G/DL (12.0-16.0); LYMPHOCYTES % (AUTO) 16.5 % (20.0-45.0); MEAN CORPUSCULAR VOLUME 90 FL (80-99); NEUTROPHILS % (AUTO) 69.1 % (45.0-75.0); PLATELET COUNT 250 K/UL (150-450); RED CELL DISTRIBUTION WIDTH 12.7 % (11.6-14.8); WHITE BLOOD COUNT 6.6 K/UL (4.8-10.8)
--- NOTE | 2019-11-25 06:30 | NUR ---
NURSE NOTES: Called to Dr. Rodríguez regarding urine lab result and left message. Will continue to follow up.
[2019-11-25 06:44] LABS: ALBUMIN/GLOBULIN RATIO 0.8 (1.0-2.7); BILIRUBIN,TOTAL 0.3 MG/DL (0.2-1.0); CALCIUM 8.5 MG/DL (8.5-10.1); CREATININE 2.1 MG/DL (0.55-1.30); PHOSPHORUS 4.3 MG/DL (2.5-4.9); POTASSIUM 4.4 MMOL/L (3.5-5.1)
--- NOTE | 2019-11-25 07:32 | NUR ---
NURSE HAND-OFF: Important Events on Shift:[SAFETY] Patient Status: [STABLE] Diet: [CARIAC, CCHO M] Pending Orders: [N] Pending Results/Labs:[N] Pending MD notification:[N] Latest Vital Signs: Temperature 98.4 , Pulse 78 , B/P 151 /57 , Respiratory Rate 18 , O2 SAT 95 , Room Air, O2 Flow Rate . Vital Sign Comment: [STABLE] Latest Santiago Fall Score: 45 Fall Risk: High Risk Safety Measures: Call light Within Reach, Bed Alarm Zone 1, Side Rails Side Rails x2, Bed position Low and Locked. Fall Precautions: Yellow Socks Yellow Gown Door Sign Patient Fall Education Report given to [KENTON MCCOY].
--- NOTE | 2019-11-25 07:45 | NUR ---
NURSE NOTES: Pt lying in bed w/bed in lowest position & locked, and call light within reach. Pt A&Ox4, VSS, and in no apparent distress. IV site intact/asymptomatic & H/L'd and skin intact. Pt positive for ESBL in urine; waiting for room on 4E. Pt has no concerns or complaints at this time. Will continue to monitor.
[2019-11-25 08:00] VITALS: BP 149/58
--- NOTE | 2019-11-25 08:12 | Pulmonology Progress Note ---
Subjective ROS Limited/Unobtainable: No Respiratory: Reports: no symptoms Allergies: Coded Allergies: No Known Allergies (Unverified , 11/21/19) Subjective no signs of resp distress denies CP, SOB Objective Last 24 Hour Vital Signs Date Time Temp Pulse Resp B/P (MAP) Pulse Ox O2 Delivery O2 Flow Rate FiO2 11/25/19 05:47 151/57 11/25/19 04:00 98.4 78 18 151/57 (88) 95 11/25/19 00:00 98.2 69 17 145/55 (85) 95 11/24/19 22:13 151/63 11/24/19 21:00 Room Air 11/24/19 20:00 98.9 75 18 151/63 (92) 95 11/24/19 17:38 83 152/65 11/24/19 16:00 98.2 83 18 152/65 (94) 96 11/24/19 15:19 152/65 11/24/19 12:00 97.8 79 18 150/60 (90) 96 11/24/19 10:09 83 128/76 11/24/19 09:00 Room Air Intake and Output 11/24/19 11/25/19 19:00 07:00 Intake Total 600 ml 250 ml Balance 600 ml 250 ml Intake Oral 600 ml 200 ml IV Total 50 ml # Voids 2 General Appearance: WD/WN HEENT: normocephalic, atraumatic Respiratory: chest wall non-tender, lungs clear, normal breath sounds, no respiratory distress Abdomen: normal bowel sounds, soft, non tender Genitourinary: normal external genitalia Extremities: no clubbing Skin: no rash 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 normal Lymphatic: no groin adenopathy Microbiology Date/Time Source Procedure Growth Status 11/22/19 15:35 Urine,Clean Catch Urine Culture - Final Escherichia Coli - Esbl Complete 11/22/19 15:35 Nasopharynx SARS-CoV-2 RdRp Gene Assay - Final Complete Laboratory Tests 11/24/19 11:34: POC Whole Blood Glucose [Pending] 11/24/19 17:37: POC Whole Blood Glucose [Pending] 11/24/19 20:47: POC Whole Blood Glucose 308H 11/25/19 01:15: Urine Eosinophils None seen 11/25/19 05:20: White Blood Count 6.6, Red Blood Count 2.80L, Hemoglobin 8.5L, Hematocrit 25.2L, Mean Corpuscular Volume 90, Mean Corpuscular Hemoglobin 30.5, Mean Corpuscular Hemoglobin Concent 33.8, Red Cell Distribution Width 12.7, Platelet Count 250, Mean Platelet Volume 6.6, Neutrophils (%) (Auto) 69.1, Lymphocytes (%) (Auto) 16.5L, Monocytes (%) (Auto) 8.0, Eosinophils (%) (Auto) 5.7H, Basophils (%) (Auto) 0.8, Sodium Level 139, Potassium Level 4.4, Chloride Level 108H, Carbon Dioxide Level 22, Anion Gap 9, Blood Urea Nitrogen 27H, Creatinine 2.1H, Estimat Glomerular Filtration Rate 22.9, Glucose Level 103, Calcium Level 8.5, Phosphorus Level 4.3, Magnesium Level 2.4, Total Bilirubin 0.3, Aspartate Amino Transf (AST/SGOT) 16, Alanine Aminotransferase (ALT/SGPT) 10L, Alkaline Phosphatase 86, Total Protein 6.6, Albumin 3.0L, Globulin 3.6, Albumin/Globulin Ratio 0.8L 11/25/19 05:43: POC Whole Blood Glucose 97 Current Medications Medications (Trade) Dose Ordered Sig/Rosetta Route PRN Reason Start Time Stop Time Status Last Admin Dose Admin Acetaminophen (Tylenol) 650 mg Q4H PRN ORAL Mild Pain(Pain Scale 1-3)fever 11/22/19 08:30 12/22/19 08:29 11/22/19 16:58 Acetaminophen/ Codeine Phosphate (Tylenol #3) 1 tab Q6H PRN ORAL Severe Pain (Pain Scale 7-10) 11/22/19 08:30 11/29/19 08:29 11/22/19 10:25 Amlodipine Besylate (Norvasc) 5 mg BID ORAL 11/23/19 18:00 12/22/19 08:59 11/24/19 17:38 Dextrose (Dextrose 50%) 25 ml Q30M PRN IV Hypoglycemia 11/22/19 08:30 02/20/20 08:29 Dextrose (Dextrose 50%) 50 ml Q30M PRN IV Hypoglycemia 11/22/19 08:30 02/20/20 08:29 Epoetin Long (Epoetin Long-EPBX(NON ESRD)) 10,000 unit MON-WED-FRI SUBQ 11/24/19 21:00 02/22/20 20:59 11/24/19 20:59 Glimepiride (AmaryL) 4 mg BID ORAL 11/22/19 09:00 12/22/19 08:59 11/24/19 17:38 Heparin Sodium (Porcine) (Heparin 5000 units/ml) 5,000 units EVERY 12 HOURS SUBQ 11/22/19 09:00 01/06/20 08:59 11/24/19 20:52 Hydralazine HCl (Apresoline) 50 mg Q8HR ORAL 11/22/19 14:00 02/20/20 13:59 11/25/19 05:47 Insulin Aspart (NovoLOG) BEFORE MEALS AND HS SUBQ 11/22/19 11:30 02/20/20 11:29 11/24/19 20:53 Meropenem 500 mg/ Sodium Chloride 55 ml @ 110 mls/hr EVERY 12 HOURS IVPB 11/25/19 09:00 11/30/19 08:59 Nateglinide (Starlix) 120 mg TIAC ORAL 11/22/19 11:30 12/22/19 11:29 11/25/19 05:47 Ondansetron HCl (Zofran) 4 mg Q4H PRN IVP Nausea & Vomiting 11/22/19 08:30 12/22/19 08:29 Polyethylene Glycol (Miralax) 17 gm BEDTIME ORAL 11/24/19 21:00 12/24/19 20:59 11/24/19 20:51 Promethazine HCl/ Codeine (Phenergan with Codeine) 5 ml Q4H PRN ORAL For Cough 11/22/19 11:15 12/22/19 11:14 Regadenoson (Lexiscan) 0.4 mg ONCE PRN IV stress test 11/23/19 19:30 11/25/19 19:29 11/24/19 15:54 Sitagliptin Phosphate (Januvia) 50 mg DAILY ORAL 11/24/19 09:00 12/22/19 08:59 11/24/19 10:08 Assessment/Plan Assessment/Plan ASSESSMENT Chest pain , ACS was ruled out CAP NIKI probably on CKD UTI with E coli ESBL Anemia Diabetes mellitus with hyperglycemia Moderate pulmonary hypertension Hypertension PLAN OF CARE serial troponin negative EKG no acute ischemic changes patient was ruled out for acute IA Echo with pEF 60% and RVSP of 57 c/w mod pulm HTN stress test nonischemic cardio on board CP noncardiac ; patient was moved out to Med Surg floor probably due to PNA venous duplex BLE NGT DVT prophylaxis O2 titrate to keep sat above 92% pulmonary toilet COVID-19 x2 NGT UCX+ Eoliu ESBL, BCX NGT Meropenem - per ID monitor renal parameters lytes , avoid nephrotoxic renal US -> no hydro BP management with CCB and Hydralazine, and optimize as needed HgA1c 8.6, not at goal continue current anti-glycemic regimen diabetic diet and diabetic teaching patient will need further optimization and frequent fup with PMD as OP to bring BS under control monitor H&H with goal to keep 7 supportive care case discussed and evaluated by supervising physician Chelsi Castaneda NP Nov 25, 2019 08:12
[2019-11-25] MEDS: Heparin 5000 units/ml inj SUBQ SCH ×2 (09:18→21:22)
[2019-11-25] MEDS: Meropenem 500 MG in NS 55 ML IVPB SCH ×2 (09:19→21:17)
[2019-11-25] MEDS: Glimepiride 4mg tab ORAL SCH ×2 (09:19→18:07)
[2019-11-25] MEDS: sitaGLIPtin 50mg tab ORAL SCH (09:19)
--- NOTE | 2019-11-25 10:54 | Nephrology Progress Note ---
Assessment/Plan Problem List: (1) Acute on chronic renal insufficiency (2) History of diabetes mellitus (3) History of hypertension (4) Normocytic anemia Assessment Renal failure, most likely acute on chronic Rule out diabetic nephropathy Diabetes mellitus Coronary artery disease Anemia, related to kidney disease and or iron deficiency Plan November 24: Labs reviewed. Serum creatinine stable. 1 more dose of IV iron. Continue per consultants. November 23: Labs reviewed. Serum creatinine stable and slightly lower. Due for stress test by cardiology. Continue per consultants. November 22: Start the patient on subcu Epogen and IV iron. Start sliding scale insulin. Kidney ultrasound: Negative for hydronephrosis 2D echocardiogram: Ejection fraction 60% Urine analysis, noted Urine spot electrolyte, noted Anemia work-up Monitor renal parameters Avoid nephrotoxic's Subjective ROS Limited/Unobtainable: No Objective Objective Last 24 Hour Vital Signs Date Time Temp Pulse Resp B/P (MAP) Pulse Ox O2 Delivery O2 Flow Rate FiO2 11/25/19 09:19 79 149/58 11/25/19 08:00 98.7 79 18 149/58 (88) 96 11/25/19 05:47 151/57 11/25/19 04:00 98.4 78 18 151/57 (88) 95 11/25/19 00:00 98.2 69 17 145/55 (85) 95 11/24/19 22:13 151/63 11/24/19 21:00 Room Air 11/24/19 20:00 98.9 75 18 151/63 (92) 95 11/24/19 17:38 83 152/65 11/24/19 16:00 98.2 83 18 152/65 (94) 96 11/24/19 15:19 152/65 11/24/19 12:00 97.8 79 18 150/60 (90) 96 Intake and Output 11/24/19 11/25/19 19:00 07:00 Intake Total 600 ml 250 ml Balance 600 ml 250 ml Intake Oral 600 ml 200 ml IV Total 50 ml # Voids 2 Current Medications Medications (Trade) Dose Ordered Sig/Rosetta Route PRN Reason Start Time Stop Time Status Last Admin Dose Admin Acetaminophen (Tylenol) 650 mg Q4H PRN ORAL Mild Pain(Pain Scale 1-3)fever 11/22/19 08:30 12/22/19 08:29 11/22/19 16:58 Acetaminophen/ Codeine Phosphate (Tylenol #3) 1 tab Q6H PRN ORAL Severe Pain (Pain Scale 7-10) 11/22/19 08:30 11/29/19 08:29 11/22/19 10:25 Amlodipine Besylate (Norvasc) 5 mg BID ORAL 11/23/19 18:00 12/22/19 08:59 11/25/19 09:19 Dextrose (Dextrose 50%) 25 ml Q30M PRN IV Hypoglycemia 11/22/19 08:30 02/20/20 08:29 Dextrose (Dextrose 50%) 50 ml Q30M PRN IV Hypoglycemia 11/22/19 08:30 02/20/20 08:29 Epoetin Long (Epoetin Long-EPBX(NON ESRD)) 10,000 unit WED- SUBQ 11/24/19 21:00 02/22/20 20:59 11/24/19 20:59 Glimepiride (AmaryL) 4 mg BID ORAL 11/22/19 09:00 12/22/19 08:59 11/25/19 09:19 Heparin Sodium (Porcine) (Heparin 5000 units/ml) 5,000 units EVERY 12 HOURS SUBQ 11/22/19 09:00 01/06/20 08:59 11/25/19 09:18 Hydralazine HCl (Apresoline) 50 mg Q8HR ORAL 11/22/19 14:00 02/20/20 13:59 11/25/19 05:47 Insulin Aspart (NovoLOG) BEFORE MEALS AND HS SUBQ 11/22/19 11:30 02/20/20 11:29 11/24/19 20:53 Meropenem 500 mg/ Sodium Chloride 55 ml @ 110 mls/hr EVERY 12 HOURS IVPB 11/25/19 09:00 11/30/19 08:59 11/25/19 09:19 Nateglinide (Starlix) 120 mg TIAC ORAL 11/22/19 11:30 12/22/19 11:29 11/25/19 05:47 Ondansetron HCl (Zofran) 4 mg Q4H PRN IVP Nausea & Vomiting 11/22/19 08:30 12/22/19 08:29 Polyethylene Glycol (Miralax) 17 gm BEDTIME ORAL 11/24/19 21:00 12/24/19 20:59 11/24/19 20:51 Promethazine HCl/ Codeine (Phenergan with Codeine) 5 ml Q4H PRN ORAL For Cough 11/22/19 11:15 12/22/19 11:14 Regadenoson (Lexiscan) 0.4 mg ONCE PRN IV stress test 11/23/19 19:30 11/25/19 19:29 11/24/19 15:54 Sitagliptin Phosphate (Januvia) 50 mg DAILY ORAL 11/24/19 09:00 12/22/19 08:59 11/25/19 09:19 Laboratory Tests 11/24/19 11:34: POC Whole Blood Glucose [Pending] 11/24/19 17:37: POC Whole Blood Glucose [Pending] 11/24/19 20:47: POC Whole Blood Glucose 308H 11/25/19 01:15: Urine Eosinophils None seen 11/25/19 05:20: White Blood Count 6.6, Red Blood Count 2.80L, Hemoglobin 8.5L, Hematocrit 25.2L, Mean Corpuscular Volume 90, Mean Corpuscular Hemoglobin 30.5, Mean Corpuscular Hemoglobin Concent 33.8, Red Cell Distribution Width 12.7, Platelet Count 250, Mean Platelet Volume 6.6, Neutrophils (%) (Auto) 69.1, Lymphocytes (%) (Auto) 16.5L, Monocytes (%) (Auto) 8.0, Eosinophils (%) (Auto) 5.7H, Basophils (%) (Auto) 0.8, Sodium Level 139, Potassium Level 4.4, Chloride Level 108H, Carbon Dioxide Level 22, Anion Gap 9, Blood Urea Nitrogen 27H, Creatinine 2.1H, Estimat Glomerular Filtration Rate 22.9, Glucose Level 103, Calcium Level 8.5, Phosphorus Level 4.3, Magnesium Level 2.4, Total Bilirubin 0.3, Aspartate Amino Transf (AST/SGOT) 16, Alanine Aminotransferase (ALT/SGPT) 10L, Alkaline Phosph atase 86, Total Protein 6.6, Albumin 3.0L, Globulin 3.6, Albumin/Globulin Ratio 0.8L 11/25/19 05:43: POC Whole Blood Glucose 97 Height (Feet): 5 Height (Inches): 0.00 Weight (Pounds): 145 General Appearance: no apparent distress Cardiovascular: normal rate Respiratory/Chest: decreased breath sounds Abdomen: soft Austin Malone MD Nov 25, 2019 10:54
[2019-11-25 12:00] VITALS: BP 157/81
[2019-11-25] MEDS ORDERED: Iron Sucrose 200 MG in NS 110 ML IVPB ONE (12:00)
[2019-11-25 16:00] VITALS: BP_SYST 150; BP_SYST 154; BP_DIAS 62; BP_DIAS 89
--- NOTE | 2019-11-25 16:23 | Infectious Diseases Prog Note ---
Assessment/Plan Assessment: COVID19 neg x2 (11/20, Rapid COVID PCR neg) CAP -11/20 CXR: Cardiomegaly. Bilateral right greater than left interstitial and airspace edema versus infiltrate Low grade fever; SP Leukocytosis, SP -11/21 Bcx NTD UTI -u/a wbc tnct, nit neg, leuk +3; ucx >100k ESBL E.coli (S Zosyn, macrobid, bactrim, enrique) Chest pain NIKI, improving DM2 HTN CHF CAD Plan: -Continue Meropenem #1/3 -11/23 SP Ceftriaxone and Azithromycin #4 -f/u cx -Monitor CBC/CMP, temperatures -COVID19 neg x2 Thank you for this consultation. Will continue to follow along with you. Discussed with RN. Subjective Allergies: Coded Allergies: No Known Allergies (Unverified , 11/21/19) afebrile in ~72hrs no leukocytosis Bcx NTD Objective Last 24 Hour Vital Signs Date Time Temp Pulse Resp B/P (MAP) Pulse Ox O2 Delivery O2 Flow Rate FiO2 11/25/19 16:00 97.9 18 150/62 (91) 95 11/25/19 14:10 143/70 11/25/19 12:00 98.0 84 18 157/81 (106) 96 11/25/19 09:19 79 149/58 11/25/19 09:00 Room Air 11/25/19 08:00 98.7 79 18 149/58 (88) 96 11/25/19 05:47 151/57 11/25/19 04:00 98.4 78 18 151/57 (88) 95 11/25/19 00:00 98.2 69 17 145/55 (85) 95 11/24/19 22:13 151/63 11/24/19 21:00 Room Air 11/24/19 20:00 98.9 75 18 151/63 (92) 95 11/24/19 17:38 83 152/65 Height (Feet): 5 Height (Inches): 0.00 Weight (Pounds): 145 General Appearance: WD/WN Lines, tubes and drains: peripheral HEENT: normocephalic, atraumatic Neck: non-tender, normal alignment, supple, normal inspection Respiratory/Chest: chest wall non-tender, lungs clear, normal breath sounds, rhonchi - right Cardiovascular/Chest: normal peripheral pulses, normal rate, regularly irregular Abdomen: normal bowel sounds, non tender Laboratory Tests Test 11/24/19 17:37 11/24/19 20:47 11/25/19 01:15 11/25/19 05:20 POC Whole Blood Glucose Pending 308 MG/DL (74-106) H Urine Eosinophils None seen (NONE SEEN) White Blood Count 6.6 K/UL (4.8-10.8) Red Blood Count 2.80 M/UL (4.20-5.40) L Hemoglobin 8.5 G/DL (12.0-16.0) L Hematocrit 25.2 % (37.0-47.0) L Mean Corpuscular Volume 90 FL (80-99) Mean Corpuscular Hemoglobin 30.5 PG (27.0-31.0) Mean Corpuscular Hemoglobin Concent 33.8 G/DL (32.0-36.0) Red Cell Distribution Width 12.7 % (11.6-14.8) Platelet Count 250 K/UL (150-450) Mean Platelet Volume 6.6 FL (6.5-10.1) Neutrophils (%) (Auto) 69.1 % (45.0-75.0) Lymphocytes (%) (Auto) 16.5 % (20.0-45.0) L Monocytes (%) (Auto) 8.0 % (1.0-10.0) Eosinophils (%) (Auto) 5.7 % (0.0-3.0) H Basophils (%) (Auto) 0.8 % (0.0-2.0) Sodium Level 139 MMOL/L (136-145) Potassium Level 4.4 MMOL/L (3.5-5.1) Chloride Level 108 MMOL/L (98-107) H Carbon Dioxide Level 22 MMOL/L (21-32) Anion Gap 9 mmol/L (5-15) Blood Urea Nitrogen 27 mg/dL (7-18) H Creatinine 2.1 MG/DL (0.55-1.30) H Estimat Glomerular Filtration Rate 22.9 mL/min (>60) Glucose Level 103 MG/DL (74-106) Calcium Level 8.5 MG/DL (8.5-10.1) Phosphorus Level 4.3 MG/DL (2.5-4.9) Magnesium Level 2.4 MG/DL (1.8-2.4) Total Bilirubin 0.3 MG/DL (0.2-1.0) Aspartate Amino Transf (AST/SGOT) 16 U/L (15-37) Alanine Aminotransferase (ALT/SGPT) 10 U/L (12-78) L Alkaline Phosphatase 86 U/L (46-116) Total Protein 6.6 G/DL (6.4-8.2) Albumin 3.0 G/DL (3.4-5.0) L Globulin 3.6 g/dL Albumin/Globulin Ratio 0.8 (1.0-2.7) L Test 11/25/19 05:43 11/25/19 11:56 11/25/19 13:45 POC Whole Blood Glucose 97 MG/DL (74-106) 203 MG/DL (74-106) H Stool Occult Blood Pending Current Medications Medications (Trade) Dose Ordered Sig/Rosetta Route PRN Reason Start Time Stop Time Status Last Admin Dose Admin Acetaminophen (Tylenol) 650 mg Q4H PRN ORAL Mild Pain(Pain Scale 1-3)fever 11/22/19 08:30 12/22/19 08:29 11/22/19 16:58 Acetaminophen/ Codeine Phosphate (Tylenol #3) 1 tab Q6H PRN ORAL Severe Pain (Pain Scale 7-10) 11/22/19 08:30 11/29/19 08:29 11/22/19 10:25 Amlodipine Besylate (Norvasc) 5 mg BID ORAL 11/23/19 18:00 12/22/19 08:59 11/25/19 09:19 Dextrose (Dextrose 50%) 25 ml Q30M PRN IV Hypoglycemia 11/22/19 08:30 02/20/20 08:29 Dextrose (Dextrose 50%) 50 ml Q30M PRN IV Hypoglycemia 11/22/19 08:30 02/20/20 08:29 Epoetin Long (Epoetin Long-EPBX(NON ESRD)) 10,000 unit WED-WED-WED SUBQ 11/24/19 21:00 02/22/20 20:59 11/24/19 20:59 Glimepiride (AmaryL) 4 mg BID ORAL 11/22/19 09:00 12/22/19 08:59 11/25/19 09:19 Heparin Sodium (Porcine) (Heparin 5000 units/ml) 5,000 units EVERY 12 HOURS SUBQ 11/22/19 09:00 01/06/20 08:59 11/25/19 09:18 Hydralazine HCl (Apresoline) 50 mg Q8HR ORAL 11/22/19 14:00 02/20/20 13:59 11/25/19 14:10 Insulin Aspart (NovoLOG) BEFORE MEALS AND HS SUBQ 11/22/19 11:30 02/20/20 11:29 11/25/19 11:59 Meropenem 500 mg/ Sodium Chloride 55 ml @ 110 mls/hr EVERY 12 HOURS IVPB 11/25/19 09:00 11/30/19 08:59 11/25/19 09:19 Nateglinide (Starlix) 120 mg TIAC ORAL 11/22/19 11:30 12/22/19 11:29 11/25/19 11:57 Ondansetron HCl (Zofran) 4 mg Q4H PRN IVP Nausea & Vomiting 11/22/19 08:30 12/22/19 08:29 Polyethylene Glycol (Miralax) 17 gm BEDTIME ORAL 11/24/19 21:00 12/24/19 20:59 11/24/19 20:51 Promethazine HCl/ Codeine (Phenergan with Codeine) 5 ml Q4H PRN ORAL For Cough 11/22/19 11:15 12/22/19 11:14 Regadenoson (Lexiscan) 0.4 mg ONCE PRN IV stress test 11/23/19 19:30 11/25/19 19:29 11/24/19 15:54 Sitagliptin Phosphate (Januvia) 50 mg DAILY ORAL 11/24/19 09:00 12/22/19 08:59 11/25/19 09:19 Hortensia Hoffman M.D. Nov 25, 2019 16:23
--- NOTE | 2019-11-25 17:17 | Cardiology Progress Note ---
Assessment/Plan Problem List: (1) Chest pain (2) NIKI (acute kidney injury) (3) History of diabetes mellitus (4) History of hypertension Status: stable, progressing Status Narrative Chest pain Pt 's chest pain has resolved. Her stress MPI yesterday was negative for ischemia or scar HTN BP elevated, on norvasc 10 mg/d ? GISSEL inh or ARB , given renal insufficiency type 2 DM UTI e coli/ ESBL cultured Pt without gu symptoms. Assessment/Plan Pt can be discharged from cardiac standpoint. Continue amlodipine 10 mg daily and consider addition of second agent if remains w/ systolic hypertension. If GISSEL inh or ARB not feasible, would consider hydralazine Management of UTI per primary team Subjective ROS Limited/Unobtainable: No Subjective Cardiology for Dr. Santana Pt without c/o chest pain or dyspnea Objective Last 24 Hour Vital Signs Date Time Temp Pulse Resp B/P (MAP) Pulse Ox O2 Delivery O2 Flow Rate FiO2 11/25/19 16:00 97.9 18 150/62 (91) 95 11/25/19 14:10 143/70 11/25/19 12:00 98.0 84 18 157/81 (106) 96 11/25/19 09:19 79 149/58 11/25/19 09:00 Room Air 11/25/19 08:00 98.7 79 18 149/58 (88) 96 11/25/19 05:47 151/57 11/25/19 04:00 98.4 78 18 151/57 (88) 95 11/25/19 00:00 98.2 69 17 145/55 (85) 95 11/24/19 22:13 151/63 11/24/19 21:00 Room Air 11/24/19 20:00 98.9 75 18 151/63 (92) 95 11/24/19 17:38 83 152/65 General Appearance: WD/WN, no apparent distress, alert, obese EENT: PERRL/EOMI Neck: non-tender, no JVD Rhythm: NSR Cardiovascular: normal rate, regular rhythm, no gallop/murmur Respiratory/Chest: lungs clear Abdomen: non tender, soft Extremities: no swelling Neurologic: alert, responsive Intake and Output 11/24/19 11/25/19 19:00 07:00 Intake Total 600 ml 250 ml Balance 600 ml 250 ml Intake Oral 600 ml 200 ml IV Total 50 ml # Voids 2 Laboratory Tests Test 11/24/19 17:37 11/24/19 20:47 11/25/19 01:15 11/25/19 05:20 POC Whole Blood Glucose Pending 308 MG/DL (74-106) H Urine Eosinophils None seen (NONE SEEN) White Blood Count 6.6 K/UL (4.8-10.8) Red Blood Count 2.80 M/UL (4.20-5.40) L Hemoglobin 8.5 G/DL (12.0-16.0) L Hematocrit 25.2 % (37.0-47.0) L Mean Corpuscular Volume 90 FL (80-99) Mean Corpuscular Hemoglobin 30.5 PG (27.0-31.0) Mean Corpuscular Hemoglobin Concent 33.8 G/DL (32.0-36.0) Red Cell Distribution Width 12.7 % (11.6-14.8) Platelet Count 250 K/UL (150-450) Mean Platelet Volume 6.6 FL (6.5-10.1) Neutrophils (%) (Auto) 69.1 % (45.0-75.0) Lymphocytes (%) (Auto) 16.5 % (20.0-45.0) L Monocytes (%) (Auto) 8.0 % (1.0-10.0) Eosinophils (%) (Auto) 5.7 % (0.0-3.0) H Basophils (%) (Auto) 0.8 % (0.0-2.0) Sodium Level 139 MMOL/L (136-145) Potassium Level 4.4 MMOL/L (3.5-5.1) Chloride Level 108 MMOL/L (98-107) H Carbon Dioxide Level 22 MMOL/L (21-32) Anion Gap 9 mmol/L (5-15) Blood Urea Nitrogen 27 mg/dL (7-18) H Creatinine 2.1 MG/DL (0.55-1.30) H Estimat Glomerular Filtration Rate 22.9 mL/min (>60) Glucose Level 103 MG/DL (74-106) Calcium Level 8.5 MG/DL (8.5-10.1) Phosphorus Level 4.3 MG/DL (2.5-4.9) Magnesium Level 2.4 MG/DL (1.8-2.4) Total Bilirubin 0.3 MG/DL (0.2-1.0) Aspartate Amino Transf (AST/SGOT) 16 U/L (15-37) Alanine Aminotransferase (ALT/SGPT) 10 U/L (12-78) L Alkaline Phosphatase 86 U/L (46-116) Total Protein 6.6 G/DL (6.4-8.2) Albumin 3.0 G/DL (3.4-5.0) L Globulin 3.6 g/dL Albumin/Globulin Ratio 0.8 (1.0-2.7) L Test 11/25/19 05:43 11/25/19 11:56 11/25/19 13:45 11/25/19 16:43 POC Whole Blood Glucose 97 MG/DL (74-106) 203 MG/DL (74-106) H 298 MG/DL (74-106) H Stool Occult Blood Pending Joana Fernandez MD Nov 25, 2019 17:17
[2019-11-25] MEDS ORDERED: Tubing IV Secondary IV ONE (17:27)
--- NOTE | 2019-11-25 18:09 | Internal Med Progress Note ---
Subjective Date of Service: Nov 25, 2019 Physician Name Tony Reyes Attending Physician Morro Rodríguez MD Current Medications Medications (Trade) Dose Ordered Sig/Rosetta Route PRN Reason Start Time Stop Time Status Last Admin Dose Admin Acetaminophen (Tylenol) 650 mg Q4H PRN ORAL Mild Pain(Pain Scale 1-3)fever 11/22/19 08:30 12/22/19 08:29 11/22/19 16:58 Acetaminophen/ Codeine Phosphate (Tylenol #3) 1 tab Q6H PRN ORAL Severe Pain (Pain Scale 7-10) 11/22/19 08:30 11/29/19 08:29 11/22/19 10:25 Amlodipine Besylate (Norvasc) 5 mg BID ORAL 11/23/19 18:00 12/22/19 08:59 11/25/19 18:06 Dextrose (Dextrose 50%) 25 ml Q30M PRN IV Hypoglycemia 11/22/19 08:30 02/20/20 08:29 Dextrose (Dextrose 50%) 50 ml Q30M PRN IV Hypoglycemia 11/22/19 08:30 02/20/20 08:29 Epoetin Long (Epoetin Long-EPBX(NON ESRD)) 10,000 unit WED-WED-WED SUBQ 11/24/19 21:00 02/22/20 20:59 11/24/19 20:59 Glimepiride (AmaryL) 4 mg BID ORAL 11/22/19 09:00 12/22/19 08:59 11/25/19 18:07 Heparin Sodium (Porcine) (Heparin 5000 units/ml) 5,000 units EVERY 12 HOURS SUBQ 11/22/19 09:00 01/06/20 08:59 11/25/19 09:18 Hydralazine HCl (Apresoline) 50 mg Q8HR ORAL 11/22/19 14:00 02/20/20 13:59 11/25/19 14:10 Insulin Aspart (NovoLOG) BEFORE MEALS AND HS SUBQ 11/22/19 11:30 02/20/20 11:29 11/25/19 16:47 Meropenem 500 mg/ Sodium Chloride 55 ml @ 110 mls/hr EVERY 12 HOURS IVPB 11/25/19 09:00 11/30/19 08:59 11/25/19 09:19 Nateglinide (Starlix) 120 mg TIAC ORAL 11/22/19 11:30 12/22/19 11:29 11/25/19 16:45 Ondansetron HCl (Zofran) 4 mg Q4H PRN IVP Nausea & Vomiting 11/22/19 08:30 12/22/19 08:29 Polyethylene Glycol (Miralax) 17 gm BEDTIME ORAL 11/24/19 21:00 12/24/19 20:59 11/24/19 20:51 Promethazine HCl/ Codeine (Phenergan with Codeine) 5 ml Q4H PRN ORAL For Cough 11/22/19 11:15 12/22/19 11:14 Regadenoson (Lexiscan) 0.4 mg ONCE PRN IV stress test 11/23/19 19:30 11/25/19 19:29 11/24/19 15:54 Sitagliptin Phosphate (Januvia) 50 mg DAILY ORAL 11/24/19 09:00 12/22/19 08:59 11/25/19 09:19 Allergies: Coded Allergies: No Known Allergies (Unverified , 11/21/19) ROS Limited/Unobtainable: No Constitutional: Reports: no symptoms HEENT: Reports: no symptoms Cardiovascular: Reports: chest pain Respiratory: Reports: no symptoms Gastrointestinal/Abdominal: Reports: no symptoms Genitourinary: Reports: no symptoms Neurologic/Psychiatric: Reports: no symptoms Subjective 74 YO F admitted with chest pain. Now pneumonia and jamshid heart failure. Cover for Int Jon-DR Rodríguez. Await cardiolite stress test Objective Last Vital Signs Date Time Temp Pulse Resp B/P (MAP) Pulse Ox O2 Delivery O2 Flow Rate FiO2 11/25/19 18:06 84 150/62 11/25/19 16:00 97.9 18 95 11/25/19 09:00 Room Air Laboratory Tests Test 11/24/19 20:47 11/25/19 01:15 11/25/19 05:20 11/25/19 05:43 POC Whole Blood Glucose 308 MG/DL (74-106) H 97 MG/DL (74-106) Urine Eosinophils None seen (NONE SEEN) White Blood Count 6.6 K/UL (4.8-10.8) Red Blood Count 2.80 M/UL (4.20-5.40) L Hemoglobin 8.5 G/DL (12.0-16.0) L Hematocrit 25.2 % (37.0-47.0) L Mean Corpuscular Volume 90 FL (80-99) Mean Corpuscular Hemoglobin 30.5 PG (27.0-31.0) Mean Corpuscular Hemoglobin Concent 33.8 G/DL (32.0-36.0) Red Cell Distribution Width 12.7 % (11.6-14.8) Platelet Count 250 K/UL (150-450) Mean Platelet Volume 6.6 FL (6.5-10.1) Neutrophils (%) (Auto) 69.1 % (45.0-75.0) Lymphocytes (%) (Auto) 16.5 % (20.0-45.0) L Monocytes (%) (Auto) 8.0 % (1.0-10.0) Eosinophils (%) (Auto) 5.7 % (0.0-3.0) H Basophils (%) (Auto) 0.8 % (0.0-2.0) Sodium Level 139 MMOL/L (136-145) Potassium Level 4.4 MMOL/L (3.5-5.1) Chloride Level 108 MMOL/L (98-107) H Carbon Dioxide Level 22 MMOL/L (21-32) Anion Gap 9 mmol/L (5-15) Blood Urea Nitrogen 27 mg/dL (7-18) H Creatinine 2.1 MG/DL (0.55-1.30) H Estimat Glomerular Filtration Rate 22.9 mL/min (>60) Glucose Level 103 MG/DL (74-106) Calcium Level 8.5 MG/DL (8.5-10.1) Phosphorus Level 4.3 MG/DL (2.5-4.9) Magnesium Level 2.4 MG/DL (1.8-2.4) Total Bilirubin 0.3 MG/DL (0.2-1.0) Aspartate Amino Transf (AST/SGOT) 16 U/L (15-37) Alanine Aminotransferase (ALT/SGPT) 10 U/L (12-78) L Alkaline Phosphatase 86 U/L (46-116) Total Protein 6.6 G/DL (6.4-8.2) Albumin 3.0 G/DL (3.4-5.0) L Globulin 3.6 g/dL Albumin/Globulin Ratio 0.8 (1.0-2.7) L Test 11/25/19 11:56 11/25/19 13:45 11/25/19 16:43 POC Whole Blood Glucose 203 MG/DL (74-106) H 298 MG/DL (74-106) H Stool Occult Blood Pending Intake and Output 11/24/19 11/25/19 19:00 07:00 Intake Total 600 ml 250 ml Balance 600 ml 250 ml Intake Oral 600 ml 200 ml IV Total 50 ml # Voids 2 Objective PHYSICAL EXAMINATION: GENERAL: The patient is a well-developed and well-nourished female, no apparent distress. HEENT: Eyes, pupils equal and responsive to light and accommodation. Extraocular movements are intact. NECK: Supple without lymphadenopathy. CHEST: Lungs are clear to auscultation bilaterally without wheezes or rales. CARDIOVASCULAR: Regular rhythm and rate. S1, S2 are normal without murmurs, rubs, or gallops. ABDOMEN: Soft, nontender, and nondistended. Positive bowel sounds. No evidence of hepatosplenomegaly. Currently, no rebound or guarding noted. EXTREMITIES: Negative for clubbing, cyanosis, or edema. RECTAL: Not performed. GENITAL: Not performed. NEUROLOGIC: Cranial nerves II through XII are grossly intact without focal deficits. Motor strength is 5/5 bilaterally. Deep tendon reflexes are 2+, plantar. Assessment/Plan Assessment/Plan TREATMENT: 1. Chest pain/congestive heart failure. Cardiology consultation has been obtained with Dr. Pool Santana. Serial troponin levels will be performed. The patient's current BNP is greater than 16,000. An echocardiogram LVEF=60%. Cardiolite stress test=non-ischemic 2. Right lower lobe pneumonia. Pulmonary consultation has been obtained with Dr. Rodrigo Marroquin. The patient has been started empirically on azithromycin and ceftriaxone. Follow recommendations of Pulmonary. 3. Renal failure. A Nephrology consultation has been obtained with Dr. Austin Malone. Follow recommendations of Dr. Malone. Renal failure may be secondary to long-standing diabetes versus acute on chronic renal failure. 4. Hypertension. Continue hydralazine and amlodipine as above. 5. Diabetes type 2. NovoLog sliding scale has been instituted. Tony Reyes MD Nov 25, 2019 18:09
--- NOTE | 2019-11-25 19:30 | NUR ---
NURSE NOTES: Receive a report from DARIUS Taylor. Round is done. Pt is awake and alert, British speaking. No acute distress noted. Denies pain. No difficulty urinating. Call light within reach. Will continue to monitor.
--- NOTE | 2019-11-25 19:32 | NUR ---
NURSE HAND-OFF: Important Events on Shift: Collected stool OB sample Patient Status: Stable Diet: Cardiac, CCHO (medium) Pending Orders: Sputum cx Latest Vital Signs: Temperature 97.9 , Pulse 84 , B/P 150 /62 , Respiratory Rate 18 , O2 SAT 95 , Room Air, O2 Flow Rate Latest Santiago Fall Score: 35 Fall Risk: Medium Risk Safety Measures: Call light Within Reach, Bed Alarm Zone 1, Side Rails Side Rails x2, Bed position Low and Locked. Fall Precautions: Yellow Socks Yellow Gown Door Sign Patient Fall Education Report given to DARIUS Fragoso.
[2019-11-25 20:00] VITALS: BP 153/62
[2019-11-25] MEDS: Miralax 17gm pkt ORAL SCH (21:18)
[2019-11-26] VITALS: BP 150/64
[2019-11-26 04:30] VITALS: BP 148/55
[2019-11-26] MEDS: HydrALAZINE 50mg tab ORAL SCH ×3 (06:44→21:15)
[2019-11-26] MEDS: NovoLOG Insulin Flexpen SUBQ SCH ×4 (06:47→21:21)
--- NOTE | 2019-11-26 07:00 | NUR ---
NURSE NOTES: Awake and alert. Noted epigastric mild discomfort. Given Tylenol 650mg po. No nausea noted. Will continue to monitor.
[2019-11-26 07:25] LABS: EOSINOPHILS % (AUTO) 5.9 % (0.0-3.0); HEMOGLOBIN 8.3 G/DL (12.0-16.0); LYMPHOCYTES % (AUTO) 16.5 % (20.0-45.0); MEAN CORPUSCULAR VOLUME 90 FL (80-99); MONOCYTES % (AUTO) 7.7 % (1.0-10.0); PLATELET COUNT 260 K/UL (150-450); RED BLOOD COUNT 2.66 M/UL (4.20-5.40); RED CELL DISTRIBUTION WIDTH 12.8 % (11.6-14.8); WHITE BLOOD COUNT 6.2 K/UL (4.8-10.8)
--- NOTE | 2019-11-26 07:30 | NUR ---
NURSE HAND-OFF: Important Events on Shift: Epigastric discomfort. Patient Status: stable Diet: cardiac& CCHO medium Pending Orders: [] Pending Results/Labs:[] Pending MD notification:[] Latest Vital Signs: Temperature 98.6 , Pulse 75 , B/P 148 /55 , Respiratory Rate 18 , O2 SAT 97 , Room Air, O2 Flow Rate . Vital Sign Comment: [] Latest Santiago Fall Score: 35 Fall Risk: Medium Risk Safety Measures: Call light Within Reach, Bed Alarm Zone 1, Side Rails Side Rails x2, Bed position Low and Locked. Fall Precautions: Yellow Socks Yellow Gown Door Sign Patient Fall Education Report given to DARIUS Taylor. Round is done.
[2019-11-26 07:32] LABS: CALCIUM 8.3 MG/DL (8.5-10.1); CREATININE 2.2 MG/DL (0.55-1.30); POTASSIUM 4.3 MMOL/L (3.5-5.1)
--- NOTE | 2019-11-26 07:45 | NUR ---
NURSE NOTES: Pt lying in bed w/bed in lowest position and call light within reach. Pt A&Ox4, VSS, and in no apparent distress. IV site intact/asymptomatic & H/L'd and skin intact. Pt c/o bloating, gas pain, and heartburn; will notify MD. Will continue to monitor.
[2019-11-26 08:00] VITALS: BP 147/69
[2019-11-26] MEDS ORDERED: Simethicone 80mg tab ORAL PRN (09:00)
[2019-11-26] MEDS: sitaGLIPtin 50mg tab ORAL SCH (09:33)
[2019-11-26] MEDS: Meropenem 500 MG in NS 55 ML IVPB SCH ×2 (09:33→21:14)
[2019-11-26] MEDS: Glimepiride 4mg tab ORAL SCH ×2 (09:34→18:09)
[2019-11-26] MEDS: Heparin 5000 units/ml inj SUBQ SCH ×2 (09:36→21:20)
--- NOTE | 2019-11-26 10:52 | Pulmonology Progress Note ---
Subjective ROS Limited/Unobtainable: No Allergies: Coded Allergies: No Known Allergies (Unverified , 11/21/19) Subjective no signs of resp distress pulse ox stable on RA denies CP, SOB Objective Last 24 Hour Vital Signs Date Time Temp Pulse Resp B/P (MAP) Pulse Ox O2 Delivery O2 Flow Rate FiO2 11/26/19 09:34 83 147/69 11/26/19 08:00 98.4 83 18 147/69 (95) 97 11/26/19 06:44 148/55 11/26/19 04:30 98.6 75 18 148/55 (86) 97 11/26/19 00:00 98.4 76 18 150/64 (92) 97 11/25/19 21:18 153/62 11/25/19 21:00 Room Air 11/25/19 20:00 99.0 71 18 153/62 (92) 96 11/25/19 18:06 84 150/62 11/25/19 16:00 97.9 18 150/62 (91) 95 11/25/19 14:10 143/70 11/25/19 12:00 98.0 84 18 157/81 (106) 96 Intake and Output 11/25/19 11/26/19 19:00 07:00 Intake Total 500 ml 200 ml Balance 500 ml 200 ml Intake Oral 500 ml 200 ml # Voids 2 3 # Bowel Movements 1 General Appearance: WD/WN HEENT: normocephalic, atraumatic Respiratory: chest wall non-tender, lungs clear, normal breath sounds, no respiratory distress Abdomen: normal bowel sounds, soft, non tender Genitourinary: normal external genitalia Extremities: no clubbing Skin: no rash 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 Lymphatic: no groin adenopathy Laboratory Tests 11/25/19 11:56: POC Whole Blood Glucose 203H 11/25/19 13:45: Stool Occult Blood Negative 11/25/19 16:43: POC Whole Blood Glucose 298H 11/25/19 21:27: POC Whole Blood Glucose [Pending] 11/26/19 05:25: White Blood Count 6.2, Red Blood Count 2.66L, Hemoglobin 8.3L, Hematocrit 24.0L, Mean Corpuscular Volume 90, Mean Corpuscular Hemoglobin 31.1H, Mean Corpuscular Hemoglobin Concent 34.5, Red Cell Distribution Width 12.8, Platelet Count 260, Mean Platelet Volume 6.1L, Neutrophils (%) (Auto) 69.0, Lymphocytes (%) (Auto) 16.5L, Monocytes (%) (Auto) 7.7, Eosinophils (%) (Auto) 5.9H, Basophils (%) (Auto) 1.0, Sodium Level 137, Potassium Level 4.3, Chloride Level 108H, Carbon Dioxide Level 21, Anion Gap 8, Blood Urea Nitrogen 29H, Creatinine 2.2H, Estimat Glomerular Filtration Rate 21.7, Glucose Level 170H, Calcium Level 8.3L 11/26/19 06:42: POC Whole Blood Glucose 159H Current Medications Medications (Trade) Dose Ordered Sig/Rosetta Route PRN Reason Start Time Stop Time Status Last Admin Dose Admin Acetaminophen (Tylenol) 650 mg Q4H PRN ORAL Mild Pain(Pain Scale 1-3)fever 11/22/19 08:30 12/22/19 08:29 11/26/19 07:02 Acetaminophen/ Codeine Phosphate (Tylenol #3) 1 tab Q6H PRN ORAL Severe Pain (Pain Scale 7-10) 11/22/19 08:30 11/29/19 08:29 11/22/19 10:25 Amlodipine Besylate (Norvasc) 5 mg BID ORAL 11/23/19 18:00 12/22/19 08:59 11/26/19 09:34 Dextrose (Dextrose 50%) 25 ml Q30M PRN IV Hypoglycemia 11/22/19 08:30 02/20/20 08:29 Dextrose (Dextrose 50%) 50 ml Q30M PRN IV Hypoglycemia 11/22/19 08:30 02/20/20 08:29 Epoetin Long (Epoetin Long-EPBX(NON ESRD)) 10,000 unit WED-WED-WED SUBQ 11/24/19 21:00 02/22/20 20:59 11/24/19 20:59 Glimepiride (AmaryL) 4 mg BID ORAL 11/22/19 09:00 12/22/19 08:59 11/26/19 09:34 Heparin Sodium (Porcine) (Heparin 5000 units/ml) 5,000 units EVERY 12 HOURS SUBQ 11/22/19 09:00 01/06/20 08:59 11/26/19 09:36 Hydralazine HCl (Apresoline) 50 mg Q8HR ORAL 11/22/19 14:00 02/20/20 13:59 11/26/19 06:44 Insulin Aspart (NovoLOG) BEFORE MEALS AND HS SUBQ 11/22/19 11:30 02/20/20 11:29 11/26/19 06:47 Meropenem 500 mg/ Sodium Chloride 55 ml @ 110 mls/hr EVERY 12 HOURS IVPB 11/25/19 09:00 11/30/19 08:59 11/26/19 09:33 Nateglinide (Starlix) 120 mg TIAC ORAL 11/22/19 11:30 12/22/19 11:29 11/26/19 06:44 Ondansetron HCl (Zofran) 4 mg Q4H PRN IVP Nausea & Vomiting 11/22/19 08:30 12/22/19 08:29 Pantoprazole (Protonix) 40 mg DAILY ORAL 11/26/19 09:00 12/26/19 08:59 11/26/19 09:33 Polyethylene Glycol (Miralax) 17 gm BEDTIME ORAL 11/24/19 21:00 12/24/19 20:59 11/25/19 21:18 Promethazine HCl/ Codeine (Phenergan with Codeine) 5 ml Q4H PRN ORAL For Cough 11/22/19 11:15 12/22/19 11:14 Simethicone (Mylicon) 160 mg QIDPRN PRN ORAL GAS 11/26/19 09:00 02/24/20 08:59 11/26/19 09:34 Sitagliptin Phosphate (Januvia) 50 mg DAILY ORAL 11/24/19 09:00 12/22/19 08:59 11/26/19 09:33 Assessment/Plan Assessment/Plan ASSESSMENT Chest pain , ACS was ruled out CAP NIKI probably on CKD UTI with E coli ESBL Anemia Diabetes mellitus with hyperglycemia Moderate pulmonary hypertension Hypertension PLAN OF CARE now on MS floor serial troponin negative EKG no acute ischemic changes patient was ruled out for acute LA Echo with pEF 60% and RVSP of 57 c/w mod pulm HTN stress test nonischemic cardio on board CP noncardiac ; patient was moved out to Med Surg floor probably due to PNA venous duplex BLE NGT DVT prophylaxis O2 titrate to keep sat above 92% pulmonary toilet COVID-19 x2 NGT UCX+ E coli ESBL, BCX NGT Meropenem - per ID monitor renal parameters lytes , avoid nephrotoxic renal US -> no hydro BP management with CCB and Hydralazine, and optimize as needed HgA1c 8.6, not at goal continue current anti-glycemic regimen diabetic diet and diabetic teaching patient will need further optimization and frequent fup with PMD as OP to bring BS under control monitor H&H with goal to keep 7 supportive care case discussed and evaluated by supervising physician Chelsi Castaneda NP Nov 26, 2019 10:52
[2019-11-26 12:00] VITALS: BP 155/68
--- NOTE | 2019-11-26 13:11 | Nephrology Progress Note ---
Assessment/Plan Problem List: (1) Acute on chronic renal insufficiency (2) History of diabetes mellitus (3) History of hypertension (4) Normocytic anemia Assessment Renal failure, most likely acute on chronic Rule out diabetic nephropathy Diabetes mellitus Coronary artery disease Anemia, related to kidney disease and or iron deficiency Plan November 25: Labs reviewed. Serum creatinine 2.2 stable. Trial of low-dose Reglan prior to meals for diabetic gastropathy. November 24: Labs reviewed. Serum creatinine stable. 1 more dose of IV iron. Continue per consultants. November 23: Labs reviewed. Serum creatinine stable and slightly lower. Due for stress test by cardiology. Continue per consultants. November 22: Start the patient on subcu Epogen and IV iron. Start sliding scale insulin. Kidney ultrasound: Negative for hydronephrosis 2D echocardiogram: Ejection fraction 60% Urine analysis, noted Urine spot electrolyte, noted Anemia work-up Monitor renal parameters Avoid nephrotoxic's Subjective ROS Limited/Unobtainable: No Constitutional: Reports: malaise, other - Complains of stomach bloating Objective Objective Last 24 Hour Vital Signs Date Time Temp Pulse Resp B/P (MAP) Pulse Ox O2 Delivery O2 Flow Rate FiO2 11/26/19 12:00 97.9 84 18 155/68 (97) 97 11/26/19 09:34 83 147/69 11/26/19 09:00 Room Air 11/26/19 08:00 98.4 83 18 147/69 (95) 97 11/26/19 06:44 148/55 11/26/19 04:30 98.6 75 18 148/55 (86) 97 11/26/19 00:00 98.4 76 18 150/64 (92) 97 11/25/19 21:18 153/62 11/25/19 21:00 Room Air 11/25/19 20:00 99.0 71 18 153/62 (92) 96 11/25/19 18:06 84 150/62 11/25/19 16:00 97.9 18 150/62 (91) 95 11/25/19 14:10 143/70 Intake and Output 11/25/19 11/26/19 19:00 07:00 Intake Total 500 ml 200 ml Balance 500 ml 200 ml Intake Oral 500 ml 200 ml # Voids 2 3 # Bowel Movements 1 Laboratory Tests 11/25/19 13:45: Stool Occult Blood Negative 11/25/19 16:43: POC Whole Blood Glucose 298H 11/25/19 21:27: POC Whole Blood Glucose [Pending] 11/26/19 05:25: White Blood Count 6.2, Red Blood Count 2.66L, Hemoglobin 8.3L, Hematocrit 24.0L, Mean Corpuscular Volume 90, Mean Corpuscular Hemoglobin 31.1H, Mean Corpuscular Hemoglobin Concent 34.5, Red Cell Distribution Width 12.8, Platelet Count 260, Mean Platelet Volume 6.1L, Neutrophils (%) (Auto) 69.0, Lymphocytes (%) (Auto) 16.5L, Monocytes (%) (Auto) 7.7, Eosinophils (%) (Auto) 5.9H, Basophils (%) (Auto) 1.0, Sodium Level 137, Potassium Level 4.3, Chloride Level 108H, Carbon Dioxide Level 21, Anion Gap 8, Blood Urea Nitrogen 29H, Creatinine 2.2H, Estimat Glomerular Filtration Rate 21.7, Glucose Level 170H, Calcium Level 8.3L 11/26/19 06:42: POC Whole Blood Glucose 159H 11/26/19 12:09: POC Whole Blood Glucose [Pending] Height (Feet): 5 Height (Inches): 0.00 Weight (Pounds): 145 General Appearance: no apparent distress Cardiovascular: normal rate Respiratory/Chest: lungs clear Abdomen: distended Austin Malone MD Nov 26, 2019 13:11
--- NOTE | 2019-11-26 15:56 | Cardiology Progress Note ---
Assessment/Plan Problem List: (1) Chest pain (2) NIKI (acute kidney injury) (3) History of diabetes mellitus (4) History of hypertension (5) UTI (urinary tract infection) Status Narrative Chest pain Pt 's chest pain has resolved. Her stress MPI yesterday was negative for ischemia or scar HTN BP elevated, on norvasc 10 mg/d Will start low dose losartan and followup labs in am - K, renal function type 2 DM diabetic nephroathy, proteinuria UTI e coli/ ESBL > 100,000 col/ml Pt now with abdominal discomfort. Assessment/Plan Pt remains stable from cardiac standpoint. Continue amlodipine 10 mg daily. Add low dose losartan and followup labs - renal function, K, in am Management of UTI per primary team. currently on iv meropenem. Subjective ROS Limited/Unobtainable: No Subjective Cardiology for Dr. Santana Pt without c/o chest pain or dyspnea. She c/o abdominal pain, no nausea, vomiting or diarrhea Objective Last 24 Hour Vital Signs Date Time Temp Pulse Resp B/P (MAP) Pulse Ox O2 Delivery O2 Flow Rate FiO2 11/26/19 14:32 155/68 11/26/19 12:00 97.9 84 18 155/68 (97) 97 11/26/19 09:34 83 147/69 11/26/19 09:00 Room Air 11/26/19 08:00 98.4 83 18 147/69 (95) 97 11/26/19 06:44 148/55 11/26/19 04:30 98.6 75 18 148/55 (86) 97 11/26/19 00:00 98.4 76 18 150/64 (92) 97 11/25/19 21:18 153/62 11/25/19 21:00 Room Air 11/25/19 20:00 99.0 71 18 153/62 (92) 96 11/25/19 18:06 84 150/62 11/25/19 16:00 97.9 18 150/62 (91) 95 General Appearance: WD/WN, no apparent distress, alert Neck: supple, no JVD Rhythm: NSR Cardiovascular: normal rate, regular rhythm, no gallop/murmur Respiratory/Chest: lungs clear Abdomen: normal bowel sounds, non tender, soft Extremities: trace edema, other - trace pedal edema bilaterally Intake and Output 11/25/19 11/26/19 19:00 07:00 Intake Total 500 ml 200 ml Balance 500 ml 200 ml Intake Oral 500 ml 200 ml # Voids 2 3 # Bowel Movements 1 Laboratory Tests Test 11/25/19 16:43 11/25/19 21:27 11/26/19 05:25 11/26/19 06:42 POC Whole Blood Glucose 298 MG/DL (74-106) H Pending 159 MG/DL (74-106) H White Blood Count 6.2 K/UL (4.8-10.8) Red Blood Count 2.66 M/UL (4.20-5.40) L Hemoglobin 8.3 G/DL (12.0-16.0) L Hematocrit 24.0 % (37.0-47.0) L Mean Corpuscular Volume 90 FL (80-99) Mean Corpuscular Hemoglobin 31.1 PG (27.0-31.0) H Mean Corpuscular Hemoglobin Concent 34.5 G/DL (32.0-36.0) Red Cell Distribution Width 12.8 % (11.6-14.8) Platelet Count 260 K/UL (150-450) Mean Platelet Volume 6.1 FL (6.5-10.1) L Neutrophils (%) (Auto) 69.0 % (45.0-75.0) Lymphocytes (%) (Auto) 16.5 % (20.0-45.0) L Monocytes (%) (Auto) 7.7 % (1.0-10.0) Eosinophils (%) (Auto) 5.9 % (0.0-3.0) H Basophils (%) (Auto) 1.0 % (0.0-2.0) Sodium Level 137 MMOL/L (136-145) Potassium Level 4.3 MMOL/L (3.5-5.1) Chloride Level 108 MMOL/L (98-107) H Carbon Dioxide Level 21 MMOL/L (21-32) Anion Gap 8 mmol/L (5-15) Blood Urea Nitrogen 29 mg/dL (7-18) H Creatinine 2.2 MG/DL (0.55-1.30) H Estimat Glomerular Filtration Rate 21.7 mL/min (>60) Glucose Level 170 MG/DL (74-106) H Calcium Level 8.3 MG/DL (8.5-10.1) L Test 11/26/19 12:09 POC Whole Blood Glucose Pending Joana Fernandez MD Nov 26, 2019 15:56
[2019-11-26 16:00] VITALS: BP 165/61
--- NOTE | 2019-11-26 16:38 | Internal Med Progress Note ---
Subjective Date of Service: Nov 26, 2019 Physician Name Tony Reyes Attending Physician Morro Rodríguez MD Current Medications Medications (Trade) Dose Ordered Sig/Rosetta Route PRN Reason Start Time Stop Time Status Last Admin Dose Admin Acetaminophen (Tylenol) 650 mg Q4H PRN ORAL Mild Pain(Pain Scale 1-3)fever 11/22/19 08:30 12/22/19 08:29 11/26/19 07:02 Acetaminophen/ Codeine Phosphate (Tylenol #3) 1 tab Q6H PRN ORAL Severe Pain (Pain Scale 7-10) 11/22/19 08:30 11/29/19 08:29 11/22/19 10:25 Amlodipine Besylate (Norvasc) 5 mg BID ORAL 11/23/19 18:00 12/22/19 08:59 11/26/19 09:34 Dextrose (Dextrose 50%) 25 ml Q30M PRN IV Hypoglycemia 11/22/19 08:30 02/20/20 08:29 Dextrose (Dextrose 50%) 50 ml Q30M PRN IV Hypoglycemia 11/22/19 08:30 02/20/20 08:29 Epoetin Long (Epoetin Long-EPBX(NON ESRD)) 10,000 unit WED-WED-WED SUBQ 11/24/19 21:00 02/22/20 20:59 11/24/19 20:59 Glimepiride (AmaryL) 4 mg BID ORAL 11/22/19 09:00 12/22/19 08:59 11/26/19 09:34 Heparin Sodium (Porcine) (Heparin 5000 units/ml) 5,000 units EVERY 12 HOURS SUBQ 11/22/19 09:00 01/06/20 08:59 11/26/19 09:36 Hydralazine HCl (Apresoline) 50 mg Q8HR ORAL 11/22/19 14:00 02/20/20 13:59 11/26/19 14:32 Insulin Aspart (NovoLOG) BEFORE MEALS AND HS SUBQ 11/22/19 11:30 02/20/20 11:29 11/26/19 12:16 Losartan Potassium (Cozaar) 12.5 mg DAILY ORAL 11/26/19 16:00 12/26/19 15:59 Meropenem 500 mg/ Sodium Chloride 55 ml @ 110 mls/hr EVERY 12 HOURS IVPB 11/25/19 09:00 11/30/19 08:59 11/26/19 09:33 Metoclopramide HCl (Reglan) 10 mg BEFORE MEALS ORAL 11/26/19 13:15 12/26/19 13:14 Nateglinide (Starlix) 120 mg TIAC ORAL 11/22/19 11:30 12/22/19 11:29 11/26/19 12:10 Ondansetron HCl (Zofran) 4 mg Q4H PRN IVP Nausea & Vomiting 11/22/19 08:30 12/22/19 08:29 Pantoprazole (Protonix) 40 mg DAILY ORAL 11/26/19 09:00 12/26/19 08:59 11/26/19 09:33 Polyethylene Glycol (Miralax) 17 gm BEDTIME ORAL 11/24/19 21:00 12/24/19 20:59 11/25/19 21:18 Simethicone (Mylicon) 160 mg QIDPRN PRN ORAL GAS 11/26/19 09:00 02/24/20 08:59 11/26/19 09:34 Sitagliptin Phosphate (Januvia) 50 mg DAILY ORAL 11/24/19 09:00 12/22/19 08:59 11/26/19 09:33 Allergies: Coded Allergies: No Known Allergies (Unverified , 11/21/19) ROS Limited/Unobtainable: No Constitutional: Reports: no symptoms HEENT: Reports: no symptoms Cardiovascular: Reports: no symptoms Respiratory: Reports: no symptoms Gastrointestinal/Abdominal: Reports: no symptoms Genitourinary: Reports: no symptoms Neurologic/Psychiatric: Reports: no symptoms Subjective 74 YO F admitted with chest pain. Now pneumonia and jamshid heart failure. Cover for Int Med-DR Rodríguez. Await cardiolite stress test Objective Last Vital Signs Date Time Temp Pulse Resp B/P (MAP) Pulse Ox O2 Delivery O2 Flow Rate FiO2 11/26/19 14:32 155/68 11/26/19 12:00 97.9 84 18 97 11/26/19 09:00 Room Air Laboratory Tests Test 11/25/19 16:43 11/25/19 21:27 11/26/19 05:25 11/26/19 06:42 POC Whole Blood Glucose 298 MG/DL (74-106) H Pending 159 MG/DL (74-106) H White Blood Count 6.2 K/UL (4.8-10.8) Red Blood Count 2.66 M/UL (4.20-5.40) L Hemoglobin 8.3 G/DL (12.0-16.0) L Hematocrit 24.0 % (37.0-47.0) L Mean Corpuscular Volume 90 FL (80-99) Mean Corpuscular Hemoglobin 31.1 PG (27.0-31.0) H Mean Corpuscular Hemoglobin Concent 34.5 G/DL (32.0-36.0) Red Cell Distribution Width 12.8 % (11.6-14.8) Platelet Count 260 K/UL (150-450) Mean Platelet Volume 6.1 FL (6.5-10.1) L Neutrophils (%) (Auto) 69.0 % (45.0-75.0) Lymphocytes (%) (Auto) 16.5 % (20.0-45.0) L Monocytes (%) (Auto) 7.7 % (1.0-10.0) Eosinophils (%) (Auto) 5.9 % (0.0-3.0) H Basophils (%) (Auto) 1.0 % (0.0-2.0) Sodium Level 137 MMOL/L (136-145) Potassium Level 4.3 MMOL/L (3.5-5.1) Chloride Level 108 MMOL/L (98-107) H Carbon Dioxide Level 21 MMOL/L (21-32) Anion Gap 8 mmol/L (5-15) Blood Urea Nitrogen 29 mg/dL (7-18) H Creatinine 2.2 MG/DL (0.55-1.30) H Estimat Glomerular Filtration Rate 21.7 mL/min (>60) Glucose Level 170 MG/DL (74-106) H Calcium Level 8.3 MG/DL (8.5-10.1) L Test 11/26/19 12:09 POC Whole Blood Glucose Pending Intake and Output 11/25/19 11/26/19 19:00 07:00 Intake Total 500 ml 200 ml Balance 500 ml 200 ml Intake Oral 500 ml 200 ml # Voids 2 3 # Bowel Movements 1 Objective PHYSICAL EXAMINATION: GENERAL: The patient is a well-developed and well-nourished female, no apparent distress. HEENT: Eyes, pupils equal and responsive to light and accommodation. Extraocular movements are intact. NECK: Supple without lymphadenopathy. CHEST: Lungs are clear to auscultation bilaterally without wheezes or rales. CARDIOVASCULAR: Regular rhythm and rate. S1, S2 are normal without murmurs, rubs, or gallops. ABDOMEN: Soft, nontender, and nondistended. Positive bowel sounds. No evidence of hepatosplenomegaly. Currently, no rebound or guarding noted. EXTREMITIES: Negative for clubbing, cyanosis, or edema. RECTAL: Not performed. GENITAL: Not performed. NEUROLOGIC: Cranial nerves II through XII are grossly intact without focal deficits. Motor strength is 5/5 bilaterally. Deep tendon reflexes are 2+, plantar. Assessment/Plan Assessment/Plan ASSESSMENT: This is a 74-year-old female: 1. Chest pain. 2. Right lower lobe pneumonia. 3. Congestive heart failure. 4. Renal failure. 5. Hypertension. 6. Diabetes type 2. 7. UTI-ESBL E.Coli TREATMENT: 1. Chest pain/congestive heart failure. Cardiology consultation has been obtained with Dr. Pool Santana. Serial troponin levels will be performed. The patient's current BNP is greater than 16,000. An echocardiogram LVEF=60%. Cardiolite stress test=non-ischemic 2. Right lower lobe pneumonia. Pulmonary consultation has been obtained with Dr. Rodrigo Marroquin. The patient has been started empirically on azithromycin and ceftriaxone. Follow recommendations of Pulmonary. 3. Renal failure. A Nephrology consultation has been obtained with Dr. Austin Malone. Follow recommendations of Dr. Malone. Renal failure may be secondary to long-standing diabetes versus acute on chronic renal failure. 4. Hypertension. Continue hydralazine and amlodipine as above. 5. Diabetes type 2. NovoLog sliding scale has been instituted. 6. ABX=meropenem D#1/3 Tony Reyes MD Nov 26, 2019 16:38
[2019-11-26] MEDS ORDERED: Magnesium Citrate Liq Btl ORAL SCH (17:00)
[2019-11-26] MEDS: Losartan 25mg tab ORAL SCH (17:13)
--- NOTE | 2019-11-26 19:18 | NUR ---
NURSE HAND-OFF: Important Events on Shift: Pt c/o bloating and heartburn; MD ordered simethicone; protonix; mag phos; and KUB. Pt did not eat very much but sugar still elevated. Pt ambulates well w/cane. Patient Status: Stable Diet: Cardiac, CCHO (Medium) Pending Orders: KUB Latest Vital Signs: Temperature 98.1 , Pulse 70 , B/P 130 /74 , Respiratory Rate 18 , O2 SAT 97 , Room Air, O2 Flow Rate . Latest Santiago Fall Score: 35 Fall Risk: Medium Risk Safety Measures: Call light Within Reach, Bed Alarm Zone 1, Side Rails Side Rails x2, Bed position Low and Locked. Fall Precautions: Yellow Socks Yellow Gown Door Sign Patient Fall Education Report given to DARIUS Rosario.
--- NOTE | 2019-11-26 19:55 | NUR ---
NURSE NOTES: Received report from Brandon. DARIUS. Patient seen sitting in bed and in stable condition. Denies any pain as of the moment.
[2019-11-26 20:00] VITALS: BP 143/60
[2019-11-26] MEDS: Miralax 17gm pkt ORAL SCH ×4 (21:00→21:52)
[2019-11-27] VITALS: BP 134/55
[2019-11-27 04:00] VITALS: BP 143/58
[2019-11-27] MEDS: HydrALAZINE 50mg tab ORAL SCH ×3 (05:22→21:45)
[2019-11-27] MEDS: NovoLOG Insulin Flexpen SUBQ SCH ×4 (05:31→21:38)
--- NOTE | 2019-11-27 06:00 | NUR ---
NURSE NOTES: Patient received from . On room air with no signs of distress or SOB. Ambulates with cane. Cane at bedside. Belongings accounted for. IV intact and patent. Skin in tact. Bed locked and in lowest position. Call light within easy reach. Will continue plan of care.
--- NOTE | 2019-11-27 06:18 | Cardiology Report ---
APPROVED REPORT EKG Measurement Heart [id number] <Conclusion> Sinus rhythm with occasional premature ventricular complexes Otherwise normal ECG
--- NOTE | 2019-11-27 06:47 | NUR ---
NURSE HAND-OFF: Important Events on Shift: Transfer from 3E to 4E Patient Status: Stable Diet: Cardiac Pending Orders: N/A Pending Results/Labs: CBC, BMP Pending MD notification: N/A Latest Vital Signs: Temperature 98.4 , Pulse 74 , B/P 143 /58 , Respiratory Rate 16 , O2 SAT 97 , Room Air, O2 Flow Rate . Vital Sign Comment: Latest Santiago Fall Score: 35 Fall Risk: Medium Risk Safety Measures: Call light Within Reach, Bed Alarm Zone 1, Side Rails Side Rails x2, Bed position Low and Locked. Fall Precautions: Yellow Socks Yellow Gown Door Sign Patient Fall Education
[2019-11-27 07:01] LABS: BASOPHILS % (AUTO) 1.4 % (0.0-2.0); HEMATOCRIT 25.7 % (37.0-47.0); HEMOGLOBIN 8.7 G/DL (12.0-16.0); LYMPHOCYTES % (AUTO) 20.6 % (20.0-45.0); MEAN CORPUSCULAR VOLUME 91 FL (80-99); MONOCYTES % (AUTO) 8.3 % (1.0-10.0); NEUTROPHILS % (AUTO) 63.7 % (45.0-75.0); PLATELET COUNT 276 K/UL (150-450); RED BLOOD COUNT 2.81 M/UL (4.20-5.40); RED CELL DISTRIBUTION WIDTH 13.1 % (11.6-14.8); WHITE BLOOD COUNT 6.9 K/UL (4.8-10.8)
[2019-11-27 07:15] LABS: CALCIUM 8.7 MG/DL (8.5-10.1); CREATININE 2.2 MG/DL (0.55-1.30); POTASSIUM 4.1 MMOL/L (3.5-5.1)
--- NOTE | 2019-11-27 07:43 | NUR ---
NURSE NOTES: Report received from Taina MCCOY. Patient seen on rounds, AxOx4, not in distress, no complaints of pain. PIV on right AC patent and intact. Pt is continent and can ambulate with a cane. Nurse reports pending sputum collection however patient does not have productive cough. Bed low and locked, siderails up x2, call light placed within reach and instructed to call nurse for assistance. Will continue to monitor.
[2019-11-27 08:00] VITALS: BP 142/55
[2019-11-27] MEDS: Glimepiride 4mg tab ORAL SCH ×2 (08:24→17:16)
[2019-11-27] MEDS: sitaGLIPtin 50mg tab ORAL SCH (08:24)
[2019-11-27] MEDS: Heparin 5000 units/ml inj SUBQ SCH ×2 (08:26→21:37)
[2019-11-27] MEDS: Losartan 25mg tab ORAL SCH (08:27)
[2019-11-27] MEDS: Meropenem 500 MG in NS 55 ML IVPB SCH ×2 (09:44→21:36)
--- NOTE | 2019-11-27 11:46 | Pulmonology Progress Note ---
Subjective ROS Limited/Unobtainable: No Allergies: Coded Allergies: No Known Allergies (Unverified , 11/21/19) Subjective no signs of resp distress pulse ox stable on RA denies CP, SOB Objective Last 24 Hour Vital Signs Date Time Temp Pulse Resp B/P (MAP) Pulse Ox O2 Delivery O2 Flow Rate FiO2 11/27/19 09:00 Room Air 11/27/19 08:27 142/55 11/27/19 08:27 72 142/55 11/27/19 08:00 98.2 72 19 142/55 (84) 95 11/27/19 05:22 143/58 11/27/19 04:00 98.4 74 16 143/58 (86) 97 11/27/19 00:00 98.3 73 16 134/55 (81) 97 11/26/19 21:15 143/60 11/26/19 21:00 Room Air 11/26/19 20:00 97.9 72 16 143/60 (87) 96 11/26/19 18:10 70 130/74 11/26/19 17:13 165/61 11/26/19 16:00 98.1 78 18 165/61 (95) 97 11/26/19 14:32 155/68 11/26/19 12:00 97.9 84 18 155/68 (97) 97 Intake and Output 11/26/19 11/27/19 19:00 07:00 Intake Total 500 ml 800 ml Balance 500 ml 800 ml Intake Oral 500 ml 800 ml # Voids 3 2 # Bowel Movements 1 General Appearance: WD/WN HEENT: normocephalic, atraumatic Respiratory: chest wall non-tender, lungs clear, normal breath sounds, no r espiratory distress Abdomen: normal bowel sounds, soft, non tender Genitourinary: normal external genitalia Extremities: no clubbing Skin: no rash Neurologic: sleeping car conductor II-XII grossly normal Lymphatic: no groin adenopathy Laboratory Tests 11/26/19 12:09: POC Whole Blood Glucose [Pending] 11/26/19 17:01: POC Whole Blood Glucose 235H 11/26/19 21:18: POC Whole Blood Glucose 221H 11/27/19 05:25: White Blood Count 6.9, Red Blood Count 2.81L, Hemoglobin 8.7L, Hematocrit 25.7L, Mean Corpuscular Volume 91, Mean Corpuscular Hemoglobin 31.0, Mean Corpuscular Hemoglobin Concent 34.0, Red Cell Distribution Width 13.1, Platelet Count 276, Mean Platelet Volume 6.1L, Neutrophils (%) (Auto) 63.7, Lymphocytes (%) (Auto) 20.6, Monocytes (%) (Auto) 8.3, Eosinophils (%) (Auto) 6.0H, Basophils (%) (Auto) 1.4, Sodium Level 140, Potassium Level 4.1, Chloride Level 108H, Carbon Dioxide Level 20L, Anion Gap 12, Blood Urea Nitrogen 24H, Creatinine 2.2H, Estimat Glomerular Filtration Rate 21.7, Glucose Level 109H, Calcium Level 8.7 11/27/19 05:26: POC Whole Blood Glucose 108H Current Medications Medications (Trade) Dose Ordered Sig/Rosetta Route PRN Reason Start Time Stop Time Status Last Admin Dose Admin Acetaminophen (Tylenol) 650 mg Q4H PRN ORAL Mild Pain(Pain Scale 1-3)fever 11/22/19 08:30 12/22/19 08:29 11/26/19 07:02 Acetaminophen/ Codeine Phosphate (Tylenol #3) 1 tab Q6H PRN ORAL Severe Pain (Pain Scale 7-10) 11/22/19 08:30 11/29/19 08:29 11/22/19 10:25 Amlodipine Besylate (Norvasc) 5 mg BID ORAL 11/23/19 18:00 12/22/19 08:59 11/27/19 08:27 Dextrose (Dextrose 50%) 25 ml Q30M PRN IV Hypoglycemia 11/22/19 08:30 02/20/20 08:29 Dextrose (Dextrose 50%) 50 ml Q30M PRN IV Hypoglycemia 11/22/19 08:30 02/20/20 08:29 Epoetin Long (Epoetin Long-EPBX(NON ESRD)) 10,000 unit WED-WED-WED SUBQ 11/24/19 21:00 02/22/20 20:59 11/24/19 20:59 Glimepiride (AmaryL) 4 mg BID ORAL 11/22/19 09:00 12/22/19 08:59 11/27/19 08:24 Heparin Sodium (Porcine) (Heparin 5000 units/ml) 5,000 units EVERY 12 HOURS SUBQ 11/22/19 09:00 01/06/20 08:59 11/27/19 08:26 Hydralazine HCl (Apresoline) 50 mg Q8HR ORAL 11/22/19 14:00 02/20/20 13:59 11/27/19 05:22 Insulin Aspart (NovoLOG) BEFORE MEALS AND HS SUBQ 11/22/19 11:30 02/20/20 11:29 11/27/19 11:38 Losartan Potassium (Cozaar) 12.5 mg DAILY ORAL 11/26/19 16:00 12/26/19 15:59 11/27/19 08:27 Meropenem 500 mg/ Sodium Chloride 55 ml @ 110 mls/hr EVERY 12 HOURS IVPB 11/25/19 09:00 11/30/19 08:59 11/27/19 09:44 Metoclopramide HCl (Reglan) 10 mg BEFORE MEALS ORAL 11/26/19 13:15 12/26/19 13:14 11/27/19 11:08 Nateglinide (Starlix) 120 mg TIAC ORAL 11/22/19 11:30 12/22/19 11:29 11/27/19 11:08 Ondansetron HCl (Zofran) 4 mg Q4H PRN IVP Nausea & Vomiting 11/22/19 08:30 12/22/19 08:29 Pantoprazole (Protonix) 40 mg DAILY ORAL 11/26/19 09:00 12/26/19 08:59 11/27/19 08:24 Polyethylene Glycol (Miralax) 17 gm BEDTIME ORAL 11/24/19 21:00 12/24/19 20:59 11/25/19 21:18 Simethicone (Mylicon) 160 mg QIDPRN PRN ORAL GAS 11/26/19 09:00 02/24/20 08:59 11/26/19 09:34 Sitagliptin Phosphate (Januvia) 50 mg DAILY ORAL 11/24/19 09:00 12/22/19 08:59 11/27/19 08:24 Assessment/Plan Assessment/Plan ASSESSMENT Chest pain , ACS was ruled out , probably due to PNA CAP NIKI probably on CKD UTI with E coli ESBL Anemia Diabetes mellitus with hyperglycemia Moderate pulmonary hypertension Hypertension PLAN OF CARE now on MS floor serial troponin negative EKG no acute ischemic changes patient was ruled out for acute OR Echo with pEF 60% and RVSP of 57 c/w mod pulm HTN stress test nonischemic cardio on board CP noncardiac ; patient was moved out to Med Surg floor probably due to PNA venous duplex BLE NGT DVT prophylaxis O2 titrate to keep sat above 92% pulmonary toilet COVID-19 x2 NGT UCX+ E coli ESBL, BCX NGT Meropenem - per ID monitor renal parameters lytes , avoid nephrotoxic renal US -> no hydro BP management with CCB and Hydralazine, and optimize as needed HgA1c 8.6, not at goal continue current anti-glycemic regimen diabetic diet and diabetic teaching patient will need further optimization and frequent fup with PMD as OP to bring BS under control monitor H&H with goal to keep 7 supportive care case discussed and evaluated by supervising physician Chelsi Castaneda NP Nov 27, 2019 11:46
[2019-11-27 12:00] VITALS: BP 139/56
--- NOTE | 2019-11-27 12:24 | Nephrology Progress Note ---
Assessment/Plan Problem List: (1) Acute on chronic renal insufficiency (2) History of diabetes mellitus (3) History of hypertension (4) Normocytic anemia Assessment Renal failure, most likely acute on chronic Rule out diabetic nephropathy Diabetes mellitus Coronary artery disease Anemia, related to kidney disease and or iron deficiency Plan November 26: Labs reviewed. Serum creatinine 2.2 stable. Continue per PMD/consultants. November 25: Labs reviewed. Serum creatinine 2.2 stable. Trial of low-dose Reglan prior to meals for diabetic gastropathy. November 24: Labs reviewed. Serum creatinine stable. 1 more dose of IV iron. Continue per consultants. November 23: Labs reviewed. Serum creatinine stable and slightly lower. Due for stress test by cardiology. Continue per consultants. November 22: Start the patient on subcu Epogen and IV iron. Start sliding scale insulin. Kidney ultrasound: Negative for hydronephrosis 2D echocardiogram: Ejection fraction 60% Urine analysis, noted Urine spot electrolyte, noted Anemia work-up Monitor renal parameters Avoid nephrotoxic's Subjective ROS Limited/Unobtainable: No Constitutional: Reports: malaise Objective Objective Last 24 Hour Vital Signs Date Time Temp Pulse Resp B/P (MAP) Pulse Ox O2 Delivery O2 Flow Rate FiO2 11/27/19 09:00 Room Air 11/27/19 08:27 142/55 11/27/19 08:27 72 142/55 11/27/19 08:00 98.2 72 19 142/55 (84) 95 11/27/19 05:22 143/58 11/27/19 04:00 98.4 74 16 143/58 (86) 97 11/27/19 00:00 98.3 73 16 134/55 (81) 97 11/26/19 21:15 143/60 11/26/19 21:00 Room Air 11/26/19 20:00 97.9 72 16 143/60 (87) 96 11/26/19 18:10 70 130/74 11/26/19 17:13 165/61 11/26/19 16:00 98.1 78 18 165/61 (95) 97 11/26/19 14:32 155/68 Intake and Output 11/26/19 11/27/19 19:00 07:00 Intake Total 500 ml 800 ml Balance 500 ml 800 ml Intake Oral 500 ml 800 ml # Voids 3 2 # Bowel Movements 1 Current Medications Medications (Trade) Dose Ordered Sig/Rosetta Route PRN Reason Start Time Stop Time Status Last Admin Dose Admin Acetaminophen (Tylenol) 650 mg Q4H PRN ORAL Mild Pain(Pain Scale 1-3)fever 11/22/19 08:30 12/22/19 08:29 11/26/19 07:02 Acetaminophen/ Codeine Phosphate (Tylenol #3) 1 tab Q6H PRN ORAL Severe Pain (Pain Scale 7-10) 11/22/19 08:30 11/29/19 08:29 11/22/19 10:25 Amlodipine Besylate (Norvasc) 5 mg BID ORAL 11/23/19 18:00 12/22/19 08:59 11/27/19 08:27 Dextrose (Dextrose 50%) 25 ml Q30M PRN IV Hypoglycemia 11/22/19 08:30 02/20/20 08:29 Dextrose (Dextrose 50%) 50 ml Q30M PRN IV Hypoglycemia 11/22/19 08:30 02/20/20 08:29 Epoetin Long (Epoetin Long-EPBX(NON ESRD)) 10,000 unit WED-WED-WED SUBQ 11/24/19 21:00 02/22/20 20:59 11/24/19 20:59 Glimepiride (AmaryL) 4 mg BID ORAL 11/22/19 09:00 12/22/19 08:59 11/27/19 08:24 Heparin Sodium (Porcine) (Heparin 5000 units/ml) 5,000 units EVERY 12 HOURS SUBQ 11/22/19 09:00 01/06/20 08:59 11/27/19 08:26 Hydralazine HCl (Apresoline) 50 mg Q8HR ORAL 11/22/19 14:00 02/20/20 13:59 11/27/19 05:22 Insulin Aspart (NovoLOG) BEFORE MEALS AND HS SUBQ 11/22/19 11:30 02/20/20 11:29 11/27/19 11:38 Losartan Potassium (Cozaar) 12.5 mg DAILY ORAL 11/26/19 16:00 12/26/19 15:59 11/27/19 08:27 Meropenem 500 mg/ Sodium Chloride 55 ml @ 110 mls/hr EVERY 12 HOURS IVPB 11/25/19 09:00 11/30/19 08:59 11/27/19 09:44 Metoclopramide HCl (Reglan) 10 mg BEFORE MEALS ORAL 11/26/19 13:15 12/26/19 13:14 11/27/19 11:08 Nateglinide (Starlix) 120 mg TIAC ORAL 11/22/19 11:30 12/22/19 11:29 11/27/19 11:08 Ondansetron HCl (Zofran) 4 mg Q4H PRN IVP Nausea & Vomiting 11/22/19 08:30 12/22/19 08:29 Pantoprazole (Protonix) 40 mg DAILY ORAL 11/26/19 09:00 12/26/19 08:59 11/27/19 08:24 Polyethylene Glycol (Miralax) 17 gm BEDTIME ORAL 11/24/19 21:00 12/24/19 20:59 11/25/19 21:18 Simethicone (Mylicon) 160 mg QIDPRN PRN ORAL GAS 11/26/19 09:00 02/24/20 08:59 11/26/19 09:34 Sitagliptin Phosphate (Januvia) 50 mg DAILY ORAL 11/24/19 09:00 12/22/19 08:59 11/27/19 08:24 Laboratory Tests 11/26/19 17:01: POC Whole Blood Glucose 235H 11/26/19 21:18: POC Whole Blood Glucose 221H 11/27/19 05:25: White Blood Count 6.9, Red Blood Count 2.81L, Hemoglobin 8.7L, Hematocrit 25.7L, Mean Corpuscular Volume 91, Mean Corpuscular Hemoglobin 31.0, Mean Corpuscular Hemoglobin Concent 34.0, Red Cell Distribution Width 13.1, Platelet Count 276, Mean Platelet Volume 6.1L, Neutrophils (%) (Auto) 63.7, Lymphocytes (%) (Auto) 20.6, Monocytes (%) (Auto) 8.3, Eosinophils (%) (Auto) 6.0H, Basophils (%) (Auto) 1.4, Sodium Level 140, Potassium Level 4.1, Chloride Level 108H, Carbon Dioxide Level 20L, Anion Gap 12, Blood Urea Nitrogen 24H, Creatinine 2.2H, Estimat Glomerular Filtration Rate 21.7, Glucose Level 109H, Calcium Level 8.7 11/27/19 05:26: POC Whole Blood Glucose 108H Height (Feet): 5 Height (Inches): 0.00 Weight (Pounds): 145 General Appearance: no apparent distress Cardiovascular: normal rate Respiratory/Chest: decreased breath sounds Abdomen: soft Austin Malone MD Nov 27, 2019 12:24
--- NOTE | 2019-11-27 12:55 | Infectious Diseases Prog Note ---
Assessment/Plan Assessment: COVID19 neg x2 (11/20, Rapid COVID PCR neg) CAP -11/20 CXR: Cardiomegaly. Bilateral right greater than left interstitial and airspace edema versus infiltrate Low grade fever; SP Leukocytosis, SP -11/21 Bcx Neg UTI -u/a wbc tnct, nit neg, leuk +3; ucx >100k ESBL E.coli (S Zosyn, macrobid, bactrim, enrique) Chest pain NIKI, improving DM2 HTN CHF CAD Plan: -Continue Meropenem #3/ -11/23 SP Ceftriaxone and Azithromycin #4 -f/u cx -Monitor CBC/CMP, temperatures -COVID19 neg x2 Thank you for this consultation. Will continue to follow along with you. Discussed with RN. Subjective Allergies: Coded Allergies: No Known Allergies (Unverified , 11/21/19) afebrile no leukocytosis Bcx Neg Objective Last 24 Hour Vital Signs Date Time Temp Pulse Resp B/P (MAP) Pulse Ox O2 Delivery O2 Flow Rate FiO2 11/27/19 09:00 Room Air 11/27/19 08:27 142/55 11/27/19 08:27 72 142/55 11/27/19 08:00 98.2 72 19 142/55 (84) 95 11/27/19 05:22 143/58 11/27/19 04:00 98.4 74 16 143/58 (86) 97 11/27/19 00:00 98.3 73 16 134/55 (81) 97 11/26/19 21:15 143/60 11/26/19 21:00 Room Air 11/26/19 20:00 97.9 72 16 143/60 (87) 96 11/26/19 18:10 70 130/74 11/26/19 17:13 165/61 11/26/19 16:00 98.1 78 18 165/61 (95) 97 11/26/19 14:32 155/68 Height (Feet): 5 Height (Inches): 0.00 Weight (Pounds): 145 General Appearance: WD/WN Lines, tubes and drains: peripheral HEENT: normocephalic, atraumatic Neck: non-tender, normal alignment, supple, normal inspection Respiratory/Chest: chest wall non-tender, lungs clear, normal breath sounds, rhonchi - right Cardiovascular/Chest: normal peripheral pulses, normal rate, regularly irregular Abdomen: normal bowel sounds, non tender Laboratory Tests Test 11/26/19 17:01 11/26/19 21:18 11/27/19 05:25 11/27/19 05:26 POC Whole Blood Glucose 235 MG/DL (74-106) H 221 MG/DL (74-106) H 108 MG/DL (74-106) H White Blood Count 6.9 K/UL (4.8-10.8) Red Blood Count 2.81 M/UL (4.20-5.40) L Hemoglobin 8.7 G/DL (12.0-16.0) L Hematocrit 25.7 % (37.0-47.0) L Mean Corpuscular Volume 91 FL (80-99) Mean Corpuscular Hemoglobin 31.0 PG (27.0-31.0) Mean Corpuscular Hemoglobin Concent 34.0 G/DL (32.0-36.0) Red Cell Distribution Width 13.1 % (11.6-14.8) Platelet Count 276 K/UL (150-450) Mean Platelet Volume 6.1 FL (6.5-10.1) L Neutrophils (%) (Auto) 63.7 % (45.0-75.0) Lymphocytes (%) (Auto) 20.6 % (20.0-45.0) Monocytes (%) (Auto) 8.3 % (1.0-10.0) Eosinophils (%) (Auto) 6.0 % (0.0-3.0) H Basophils (%) (Auto) 1.4 % (0.0-2.0) Sodium Level 140 MMOL/L (136-145) Potassium Level 4.1 MMOL/L (3.5-5.1) Chloride Level 108 MMOL/L (98-107) H Carbon Dioxide Level 20 MMOL/L (21-32) L Anion Gap 12 mmol/L (5-15) Blood Urea Nitrogen 24 mg/dL (7-18) H Creatinine 2.2 MG/DL (0.55-1.30) H Estimat Glomerular Filtration Rate 21.7 mL/min (>60) Glucose Level 109 MG/DL (74-106) H Calcium Level 8.7 MG/DL (8.5-10.1) Current Medications Medications (Trade) Dose Ordered Sig/Rosetta Route PRN Reason Start Time Stop Time Status Last Admin Dose Admin Acetaminophen (Tylenol) 650 mg Q4H PRN ORAL Mild Pain(Pain Scale 1-3)fever 11/22/19 08:30 12/22/19 08:29 11/26/19 07:02 Acetaminophen/ Codeine Phosphate (Tylenol #3) 1 tab Q6H PRN ORAL Severe Pain (Pain Scale 7-10) 11/22/19 08:30 11/29/19 08:29 11/22/19 10:25 Amlodipine Besylate (Norvasc) 5 mg BID ORAL 11/23/19 18:00 12/22/19 08:59 11/27/19 08:27 Dextrose (Dextrose 50%) 25 ml Q30M PRN IV Hypoglycemia 11/22/19 08:30 02/20/20 08:29 Dextrose (Dextrose 50%) 50 ml Q30M PRN IV Hypoglycemia 11/22/19 08:30 02/20/20 08:29 Epoetin Long (Epoetin Long-EPBX(NON ESRD)) 10,000 unit WED-WED-WED SUBQ 11/24/19 21:00 02/22/20 20:59 11/24/19 20:59 Glimepiride (AmaryL) 4 mg BID ORAL 11/22/19 09:00 12/22/19 08:59 11/27/19 08:24 Heparin Sodium (Porcine) (Heparin 5000 units/ml) 5,000 units EVERY 12 HOURS SUBQ 11/22/19 09:00 01/06/20 08:59 11/27/19 08:26 Hydralazine HCl (Apresoline) 50 mg Q8HR ORAL 11/22/19 14:00 02/20/20 13:59 11/27/19 05:22 Insulin Aspart (NovoLOG) BEFORE MEALS AND HS SUBQ 11/22/19 11:30 02/20/20 11:29 11/27/19 11:38 Losartan Potassium (Cozaar) 12.5 mg DAILY ORAL 11/26/19 16:00 12/26/19 15:59 11/27/19 08:27 Meropenem 500 mg/ Sodium Chloride 55 ml @ 110 mls/hr EVERY 12 HOURS IVPB 11/25/19 09:00 11/30/19 08:59 11/27/19 09:44 Metoclopramide HCl (Reglan) 10 mg BEFORE MEALS ORAL 11/26/19 13:15 12/26/19 13:14 11/27/19 11:08 Nateglinide (Starlix) 120 mg TIAC ORAL 11/22/19 11:30 12/22/19 11:29 11/27/19 11:08 Ondansetron HCl (Zofran) 4 mg Q4H PRN IVP Nausea & Vomiting 11/22/19 08:30 12/22/19 08:29 Pantoprazole (Protonix) 40 mg DAILY ORAL 11/26/19 09:00 12/26/19 08:59 11/27/19 08:24 Polyethylene Glycol (Miralax) 17 gm BEDTIME ORAL 11/24/19 21:00 12/24/19 20:59 11/25/19 21:18 Simethicone (Mylicon) 160 mg QIDPRN PRN ORAL GAS 11/26/19 09:00 02/24/20 08:59 11/26/19 09:34 Sitagliptin Phosphate (Januvia) 50 mg DAILY ORAL 11/24/19 09:00 12/22/19 08:59 11/27/19 08:24 Hortensia Hoffman M.D. Nov 27, 2019 12:55
[2019-11-27 16:00] VITALS: BP 111/56
--- NOTE | 2019-11-27 17:00 | NUR ---
CASE MANAGEMENT:REVIEW SI; ACUTE ISCHEMIC HEART DISEASE. PNA. 98.8 76 19 142/55 95% ON RA H/H 8.7/25.7 BUN 24 CR 2.2 IS;COZAAR PO QD REGLAN PO TID PROTONIX PO QD MEROPENEM IV Q12 EPOETIN MILI SUBQ M/W/F NORVASC PO BID HYDRALAZINE PO Q8 HEPARIN SUBQ Q12 MED PADDY STATUS DCP;FROM HOME
--- NOTE | 2019-11-27 18:57 | Diagnostic Imaging Report ---
Indication: Abdominal pain Technique: Supine view of the abdomen Comparison: none Findings: Unremarkable bowel gas pattern. Calcifications in the pelvis may reflect small calcified fibroids. Impression: No acute process
--- NOTE | 2019-11-27 19:28 | NUR ---
NURSE HAND-OFF: Important Events on Shift: No adverse events noted Patient Status: Stable Diet: Cardiac Pending Orders: Sputum culture; unable to procure sample Pending Results/Labs: None Pending MD notification: None Latest Vital Signs: Temperature 98.2 , Pulse 70 , B/P 111 /56 , Respiratory Rate 19 , O2 SAT 96 , Room Air, O2 Flow Rate . Vital Sign Comment: Latest Santiago Fall Score: 35 Fall Risk: Medium Risk Safety Measures: Call light Within Reach, Bed Alarm Zone 1, Side Rails Side Rails x2, Bed position Low and Locked. Fall Precautions: Yellow Socks Yellow Gown Door Sign Patient Fall Education Report given to Coreen MCCOY.
--- NOTE | 2019-11-27 19:30 | NUR ---
NURSE NOTES: Patient awake in bed, on room air, no SOB noted. No complaints of any pain. IV access on the right arm. Instructed to use call light for assistance. Call light within reach. Bed in lowest and lock engaged. Will continue plan of care.
[2019-11-27 20:00] VITALS: BP 123/49
--- NOTE | 2019-11-27 20:27 | Internal Med Progress Note ---
Subjective Date of Service: Nov 27, 2019 Physician Name Tony Reyes Attending Physician Morro Rodríguez MD Current Medications Medications (Trade) Dose Ordered Sig/Rosetta Route PRN Reason Start Time Stop Time Status Last Admin Dose Admin Acetaminophen (Tylenol) 650 mg Q4H PRN ORAL Mild Pain(Pain Scale 1-3)fever 11/22/19 08:30 12/22/19 08:29 11/26/19 07:02 Acetaminophen/ Codeine Phosphate (Tylenol #3) 1 tab Q6H PRN ORAL Severe Pain (Pain Scale 7-10) 11/22/19 08:30 11/29/19 08:29 11/22/19 10:25 Amlodipine Besylate (Norvasc) 5 mg BID ORAL 11/23/19 18:00 12/22/19 08:59 11/27/19 17:17 Dextrose (Dextrose 50%) 25 ml Q30M PRN IV Hypoglycemia 11/22/19 08:30 02/20/20 08:29 Dextrose (Dextrose 50%) 50 ml Q30M PRN IV Hypoglycemia 11/22/19 08:30 02/20/20 08:29 Epoetin Long (Epoetin Long-EPBX(NON ESRD)) 10,000 unit WED-WED-WED SUBQ 11/24/19 21:00 02/22/20 20:59 11/24/19 20:59 Glimepiride (AmaryL) 4 mg BID ORAL 11/22/19 09:00 12/22/19 08:59 11/27/19 17:16 Heparin Sodium (Porcine) (Heparin 5000 units/ml) 5,000 units EVERY 12 HOURS SUBQ 11/22/19 09:00 01/06/20 08:59 11/27/19 08:26 Hydralazine HCl (Apresoline) 50 mg Q8HR ORAL 11/22/19 14:00 02/20/20 13:59 11/27/19 14:07 Insulin Aspart (NovoLOG) BEFORE MEALS AND HS SUBQ 11/22/19 11:30 02/20/20 11:29 11/27/19 17:16 Losartan Potassium (Cozaar) 12.5 mg DAILY ORAL 11/26/19 16:00 12/26/19 15:59 11/27/19 08:27 Meropenem 500 mg/ Sodium Chloride 55 ml @ 110 mls/hr EVERY 12 HOURS IVPB 11/25/19 09:00 11/30/19 08:59 11/27/19 09:44 Metoclopramide HCl (Reglan) 10 mg BEFORE MEALS ORAL 11/26/19 13:15 12/26/19 13:14 11/27/19 17:15 Nateglinide (Starlix) 120 mg TIAC ORAL 11/22/19 11:30 12/22/19 11:29 11/27/19 17:17 Ondansetron HCl (Zofran) 4 mg Q4H PRN IVP Nausea & Vomiting 11/22/19 08:30 12/22/19 08:29 Pantoprazole (Protonix) 40 mg DAILY ORAL 11/26/19 09:00 12/26/19 08:59 11/27/19 08:24 Polyethylene Glycol (Miralax) 17 gm BEDTIME ORAL 11/24/19 21:00 12/24/19 20:59 11/25/19 21:18 Simethicone (Mylicon) 160 mg QIDPRN PRN ORAL GAS 11/26/19 09:00 02/24/20 08:59 11/26/19 09:34 Sitagliptin Phosphate (Januvia) 50 mg DAILY ORAL 11/24/19 09:00 12/22/19 08:59 11/27/19 08:24 Allergies: Coded Allergies: No Known Allergies (Unverified , 11/21/19) ROS Limited/Unobtainable: No Constitutional: Reports: no symptoms HEENT: Reports: no symptoms Cardiovascular: Reports: chest pain Respiratory: Reports: no symptoms Gastrointestinal/Abdominal: Reports: no symptoms Genitourinary: Reports: no symptoms Neurologic/Psychiatric: Reports: no symptoms Subjective 74 YO F admitted with chest pain. Now pneumonia and jamshid heart failure. Cover for Int Jon-DR Rodríguez. Await cardiolite stress test Objective Last Vital Signs Date Time Temp Pulse Resp B/P (MAP) Pulse Ox O2 Delivery O2 Flow Rate FiO2 11/27/19 17:17 70 111/56 11/27/19 16:00 98.2 19 96 11/27/19 09:00 Room Air Laboratory Tests Test 11/26/19 21:18 11/27/19 05:25 11/27/19 05:26 POC Whole Blood Glucose 221 MG/DL (74-106) H 108 MG/DL (74-106) H White Blood Count 6.9 K/UL (4.8-10.8) Red Blood Count 2.81 M/UL (4.20-5.40) L Hemoglobin 8.7 G/DL (12.0-16.0) L Hematocrit 25.7 % (37.0-47.0) L Mean Corpuscular Volume 91 FL (80-99) Mean Corpuscular Hemoglobin 31.0 PG (27.0-31.0) Mean Corpuscular Hemoglobin Concent 34.0 G/DL (32.0-36.0) Red Cell Distribution Width 13.1 % (11.6-14.8) Platelet Count 276 K/UL (150-450) Mean Platelet Volume 6.1 FL (6.5-10.1) L Neutrophils (%) (Auto) 63.7 % (45.0-75.0) Lymphocytes (%) (Auto) 20.6 % (20.0-45.0) Monocytes (%) (Auto) 8.3 % (1.0-10.0) Eosinophils (%) (Auto) 6.0 % (0.0-3.0) H Basophils (%) (Auto) 1.4 % (0.0-2.0) Sodium Level 140 MMOL/L (136-145) Potassium Level 4.1 MMOL/L (3.5-5.1) Chloride Level 108 MMOL/L (98-107) H Carbon Dioxide Level 20 MMOL/L (21-32) L Anion Gap 12 mmol/L (5-15) Blood Urea Nitrogen 24 mg/dL (7-18) H Creatinine 2.2 MG/DL (0.55-1.30) H Estimat Glomerular Filtration Rate 21.7 mL/min (>60) Glucose Level 109 MG/DL (74-106) H Calcium Level 8.7 MG/DL (8.5-10.1) Intake and Output 11/26/19 11/27/19 19:00 07:00 Intake Total 500 ml 800 ml Balance 500 ml 800 ml Intake Oral 500 ml 800 ml # Voids 3 2 # Bowel Movements 1 Objective PHYSICAL EXAMINATION: GENERAL: The patient is a well-developed and well-nourished female, no apparent distress. HEENT: Eyes, pupils equal and responsive to light and accommodation. Extraocular movements are intact. NECK: Supple without lymphadenopathy. CHEST: Lungs are clear to auscultation bilaterally without wheezes or rales. CARDIOVASCULAR: Regular rhythm and rate. S1, S2 are normal without murmurs, rubs, or gallops. ABDOMEN: Soft, nontender, and nondistended. Positive bowel sounds. No evidence of hepatosplenomegaly. Currently, no rebound or guarding noted. EXTREMITIES: Negative for clubbing, cyanosis, or edema. RECTAL: Not performed. GENITAL: Not performed. NEUROLOGIC: Cranial nerves II through XII are grossly intact without focal deficits. Motor strength is 5/5 bilaterally. Deep tendon reflexes are 2+, plantar. Assessment/Plan Assessment/Plan ASSESSMENT: This is a 74-year-old female: 1. Chest pain. 2. Right lower lobe pneumonia. 3. Congestive heart failure. 4. Renal failure. 5. Hypertension. 6. Diabetes type 2. 7. UTI-ESBL E.Coli TREATMENT: 1. Chest pain/congestive heart failure. Cardiology consultation has been obtained with Dr. Pool Santana. Serial troponin levels will be performed. The patient's current BNP is greater than 16,000. An echocardiogram LVEF=60%. Cardiolite stress test=non-ischemic 2. Right lower lobe pneumonia. Pulmonary consultation has been obtained with Dr. Rodrigo Marroquin. The patient has been started empirically on azithromycin and ceftriaxone. Follow recommendations of Pulmonary. 3. Renal failure. A Nephrology consultation has been obtained with Dr. Austin Malone. Follow recommendations of Dr. Malone. Renal failure may be secondary to long-standing diabetes versus acute on chronic renal failure. 4. Hypertension. Continue hydralazine and amlodipine as above. 5. Diabetes type 2. NovoLog sliding scale has been instituted. 6. ABX=meropenem D#1/3 Tony Reyes MD Nov 27, 2019 20:27
[2019-11-27] MEDS: Epoetin Alfa-EPBX (NON ESRD)10,000 unit/ml vial SUBQ SCH (21:26)
[2019-11-28] VITALS: BP 119/65
[2019-11-28 04:00] VITALS: BP 133/48
[2019-11-28] MEDS: NovoLOG Insulin Flexpen SUBQ SCH ×4 (06:13→21:09)
[2019-11-28] MEDS: HydrALAZINE 50mg tab ORAL SCH ×3 (06:16→21:00)
[2019-11-28 06:38] LABS: BASOPHILS % (AUTO) 1.4 % (0.0-2.0); EOSINOPHILS % (AUTO) 5.8 % (0.0-3.0); HEMATOCRIT 25.3 % (37.0-47.0); HEMOGLOBIN 8.7 G/DL (12.0-16.0); LYMPHOCYTES % (AUTO) 19.3 % (20.0-45.0); MEAN CORPUSCULAR VOLUME 91 FL (80-99); MONOCYTES % (AUTO) 8.7 % (1.0-10.0); NEUTROPHILS % (AUTO) 64.8 % (45.0-75.0); PLATELET COUNT 306 K/UL (150-450); RED BLOOD COUNT 2.78 M/UL (4.20-5.40); RED CELL DISTRIBUTION WIDTH 13.3 % (11.6-14.8); WHITE BLOOD COUNT 7.4 K/UL (4.8-10.8)
[2019-11-28 06:41] LABS: CALCIUM 8.5 MG/DL (8.5-10.1); CREATININE 2.4 MG/DL (0.55-1.30); POTASSIUM 4.6 MMOL/L (3.5-5.1)
--- NOTE | 2019-11-28 06:48 | NUR ---
NURSE HAND-OFF: Important Events on Shift: none Patient Status: stable Diet: cardiac Pending Orders: AM labs Pending Results/Labs:bmp,cbc Pending MD notification: Latest Vital Signs: Temperature 97.7 , Pulse 55 , B/P 150 /56 , Respiratory Rate 18 , O2 SAT 97 , Room Air, O2 Flow Rate . Vital Sign Comment: Latest Santiago Fall Score: 35 Fall Risk: Medium Risk Safety Measures: Call light Within Reach, Bed Alarm Zone 1, Side Rails Side Rails x2, Bed position Low and Locked. Fall Precautions: Yellow Socks Yellow Gown Door Sign Patient Fall Education
--- NOTE | 2019-11-28 07:09 | NUR ---
HAND-OFF: Report given to DARIUS Garcia.
--- NOTE | 2019-11-28 07:20 | NUR ---
NURSE NOTES: Received patient in bed,awake, alert and oriented x4. Patient denies chest pain or discomfort. Lung sound is clear. Patient is ambulatory using cane but reminded patient to call nurse if needed. Bed is in lowest position and locked. IV is intact, no s/s of infiltration. Denies any urinary symptoms. Will continue plan of care.
[2019-11-28 08:00] VITALS: BP 158/58
[2019-11-28] MEDS: Losartan 25mg tab ORAL SCH (08:18)
[2019-11-28] MEDS: Glimepiride 4mg tab ORAL SCH ×2 (08:19→17:09)
[2019-11-28] MEDS: sitaGLIPtin 50mg tab ORAL SCH (08:19)
[2019-11-28] MEDS: Meropenem 500 MG in NS 55 ML IVPB SCH (08:20)
[2019-11-28] MEDS: Heparin 5000 units/ml inj SUBQ SCH ×2 (08:21→21:08)
--- NOTE | 2019-11-28 09:00 | NUR ---
NURSE NOTES: Patient refused to take amaryl stating her blood sugar was 102 this morning . Rn re educated on medication. Patient took Januvia but refused amaryl. Explained the risks and benefits. Will continue to monitor.
[2019-11-28 10:08] LABS: ALANINE AMINOTRANSFERASE 44 U/L (12-78); ALBUMIN 3.2 G/DL (3.4-5.0); ALKALINE PHOSPHATASE 90 U/L (46-116); ASPARTATE AMINO TRANSFERASE 51 U/L (15-37); BILIRUBIN,DIRECT < 0.1 MG/DL (0.0-0.3); BILIRUBIN,TOTAL 0.2 MG/DL (0.2-1.0); PHOSPHORUS 4.4 MG/DL (2.5-4.9)
[2019-11-28 12:00] VITALS: BP 128/56
--- NOTE | 2019-11-28 13:14 | Pulmonology Progress Note ---
Subjective ROS Limited/Unobtainable: No Allergies: Coded Allergies: No Known Allergies (Unverified , 11/21/19) Objective Last 24 Hour Vital Signs Date Time Temp Pulse Resp B/P (MAP) Pulse Ox O2 Delivery O2 Flow Rate FiO2 11/28/19 12:00 97.7 75 18 128/56 (80) 98 11/28/19 09:00 Room Air 11/28/19 08:19 73 158/58 11/28/19 08:18 158/58 11/28/19 08:00 98.2 73 18 158/58 (91) 98 11/28/19 06:16 150/56 11/28/19 04:00 97.7 55 18 133/48 (76) 97 11/28/19 00:00 98.0 63 17 119/65 (83) 97 11/27/19 21:45 118/49 11/27/19 21:00 Room Air 11/27/19 20:00 97.2 72 16 123/49 (73) 98 11/27/19 17:17 70 111/56 11/27/19 16:00 98.2 70 19 111/56 (74) 96 11/27/19 14:07 139/56 Intake and Output 11/27/19 11/28/19 19:00 07:00 Intake Total 840 ml 240 ml Balance 840 ml 240 ml Intake Oral 840 ml 240 ml # Voids 3 2 General Appearance: WD/WN HEENT: normocephalic, atraumatic Respiratory: chest wall non-tender, lungs clear, normal breath sounds, no respiratory distress Abdomen: normal bowel sounds, soft, non tender Genitourinary: normal external genitalia Extremities: no clubbing Skin: no rash Neurologic: chief medical director II-XII grossly normal Lymphatic: no groin adenopathy Laboratory Tests 11/27/19 16:20: POC Whole Blood Glucose 208H 11/28/19 05:40: White Blood Count 7.4, Red Blood Count 2.78L, Hemoglobin 8.7L, Hematocrit 25.3L, Mean Corpuscular Volume 91, Mean Corpuscular Hemoglobin 31.4H, Mean Corpuscular Hemoglobin Concent 34.5, Red Cell Distribution Width 13.3, Platelet Count 306, Mean Platelet Volume 6.1L, Neutrophils (%) (Auto) 64.8, Lymphocytes (%) (Auto) 19.3L, Monocytes (%) (Auto) 8.7, Eosinophils (%) (Auto) 5.8H, Basophils (%) (Auto) 1.4, Sodium Level 139, Potassium Level 4.6, Chloride Level 109H, Carbon Dioxide Level 19L, Anion Gap 11, Blood Urea Nitrogen 32H, Creatinine 2.4H, Estimat Glomerular Filtration Rate 19.7, Glucose Level 105, Uric Acid 6.5, Ca lcium Level 8.5, Phosphorus Level 4.4, Magnesium Level 2.9H, Total Bilirubin 0.2, Direct Bilirubin < 0.1, Aspartate Amino Transf (AST/SGOT) 51H, Alanine Aminotransferase (ALT/SGPT) 44, Alkaline Phosphatase 90, Total Protein 7.4, Albumin 3.2L Current Medications Medications (Trade) Dose Ordered Sig/Rosetta Route PRN Reason Start Time Stop Time Status Last Admin Dose Admin Acetaminophen (Tylenol) 650 mg Q4H PRN ORAL Mild Pain(Pain Scale 1-3)fever 11/22/19 08:30 12/22/19 08:29 11/26/19 07:02 Acetaminophen/ Codeine Phosphate (Tylenol #3) 1 tab Q6H PRN ORAL Severe Pain (Pain Scale 7-10) 11/22/19 08:30 11/29/19 08:29 11/22/19 10:25 Amlodipine Besylate (Norvasc) 5 mg BID ORAL 11/23/19 18:00 12/22/19 08:59 11/28/19 08:19 Dextrose (Dextrose 50%) 25 ml Q30M PRN IV Hypoglycemia 11/22/19 08:30 02/20/20 08:29 Dextrose (Dextrose 50%) 50 ml Q30M PRN IV Hypoglycemia 11/22/19 08:30 02/20/20 08:29 Epoetin Long (Epoetin Long-EPBX(NON ESRD)) 10,000 unit WED-WED-WED SUBQ 11/24/19 21:00 02/22/20 20:59 11/27/19 21:26 Glimepiride (AmaryL) 4 mg BID ORAL 11/22/19 09:00 12/22/19 08:59 11/27/19 17:16 Heparin Sodium (Porcine) (Heparin 5000 units/ml) 5,000 units EVERY 12 HOURS SUBQ 11/22/19 09:00 01/06/20 08:59 11/28/19 08:21 Hydralazine HCl (Apresoline) 50 mg Q8HR ORAL 11/22/19 14:00 02/20/20 13:59 11/28/19 06:16 Insulin Aspart (NovoLOG) BEFORE MEALS AND HS SUBQ 11/22/19 11:30 02/20/20 11:29 11/28/19 11:44 Losartan Potassium (Cozaar) 12.5 mg DAILY ORAL 11/26/19 16:00 12/26/19 15:59 11/28/19 08:18 Meropenem 500 mg/ Sodium Chloride 55 ml @ 110 mls/hr EVERY 12 HOURS IVPB 11/25/19 09:00 11/30/19 08:59 11/28/19 08:20 Metoclopramide HCl (Reglan) 10 mg BEFORE MEALS ORAL 11/26/19 13:15 12/26/19 13:14 11/28/19 11:43 Nateglinide (Starlix) 120 mg TIAC ORAL 11/22/19 11:30 12/22/19 11:29 11/28/19 11:43 Ondansetron HCl (Zofran) 4 mg Q4H PRN IVP Nausea & Vomiting 11/22/19 08:30 12/22/19 08:29 Pantoprazole (Protonix) 40 mg DAILY ORAL 11/26/19 09:00 12/26/19 08:59 11/28/19 08:18 Polyethylene Glycol (Miralax) 17 gm BEDTIME ORAL 11/24/19 21:00 12/24/19 20:59 11/25/19 21:18 Simethicone (Mylicon) 160 mg QIDPRN PRN ORAL GAS 11/26/19 09:00 02/24/20 08:59 11/26/19 09:34 Sitagliptin Phosphate (Januvia) 50 mg DAILY ORAL 11/24/19 09:00 12/22/19 08:59 11/28/19 08:19 Assessment/Plan Problems: (1) ACS (acute coronary syndrome) (2) Community acquired pneumonia (3) Acute on chronic renal insufficiency (4) History of hypertension (5) History of diabetes mellitus Assessment/Plan check cxr in am doing better troponin are all negative titrate fio2 to sat of 92% antitussives symptomatic treatment sliding scale diabetic diet Rodrigo Marroquin MD Nov 28, 2019 13:14
--- NOTE | 2019-11-28 14:16 | Infectious Diseases Prog Note ---
Assessment/Plan Assessment: COVID19 neg x2 (11/20, Rapid COVID PCR neg) CAP, sp rx -11/20 CXR: Cardiomegaly. Bilateral right greater than left interstitial and airspace edema versus infiltrate Low grade fever; SP Leukocytosis, SP -11/21 Bcx Neg UTI, sp rx -u/a wbc tnct, nit neg, leuk +3; ucx >100k ESBL E.coli (S Zosyn, macrobid, bactrim, enrique) Chest pain NIKI Vs CKD DM2 HTN CHF CAD Plan: -Dc Meropenem #4/3 and monitor off abx -11/23 SP Ceftriaxone and Azithromycin #4 -f/u cx -Monitor CBC/CMP, temperatures -COVID19 neg x2 Thank you for this consultation. Will continue to follow along with you. Discussed with RN. Subjective Allergies: Coded Allergies: No Known Allergies (Unverified , 11/21/19) afebrile no leukocytosis discharge planning Objective Last 24 Hour Vital Signs Date Time Temp Pulse Resp B/P (MAP) Pulse Ox O2 Delivery O2 Flow Rate FiO2 11/28/19 14:12 150/53 11/28/19 12:00 97.7 75 18 128/56 (80) 98 11/28/19 09:00 Room Air 11/28/19 08:19 73 158/58 11/28/19 08:18 158/58 11/28/19 08:00 98.2 73 18 158/58 (91) 98 11/28/19 06:16 150/56 11/28/19 04:00 97.7 55 18 133/48 (76) 97 11/28/19 00:00 98.0 63 17 119/65 (83) 97 11/27/19 21:45 118/49 11/27/19 21:00 Room Air 11/27/19 20:00 97.2 72 16 123/49 (73) 98 11/27/19 17:17 70 111/56 11/27/19 16:00 98.2 70 19 111/56 (74) 96 Height (Feet): 5 Height (Inches): 0.00 Weight (Pounds): 145 General Appearance: WD/WN Lines, tubes and drains: peripheral HEENT: normocephalic, atraumatic Neck: non-tender, normal alignment, supple, normal inspection Respiratory/Chest: chest wall non-tender, lungs clear, normal breath sounds, rhonchi - right Cardiovascular/Chest: normal peripheral pulses, normal rate, regularly irregular Abdomen: normal bowel sounds, non tender Laboratory Tests Test 11/27/19 16:20 11/28/19 05:40 POC Whole Blood Glucose 208 MG/DL (74-106) H White Blood Count 7.4 K/UL (4.8-10.8) Red Blood Count 2.78 M/UL (4.20-5.40) L Hemoglobin 8.7 G/DL (12.0-16.0) L Hematocrit 25.3 % (37.0-47.0) L Mean Corpuscular Volume 91 FL (80-99) Mean Corpuscular Hemoglobin 31.4 PG (27.0-31.0) H Mean Corpuscular Hemoglobin Concent 34.5 G/DL (32.0-36.0) Red Cell Distribution Width 13.3 % (11.6-14.8) Platelet Count 306 K/UL (150-450) Mean Platelet Volume 6.1 FL (6.5-10.1) L Neutrophils (%) (Auto) 64.8 % (45.0-75.0) Lymphocytes (%) (Auto) 19.3 % (20.0-45.0) L Monocytes (%) (Auto) 8.7 % (1.0-10.0) Eosinophils (%) (Auto) 5.8 % (0.0-3.0) H Basophils (%) (Auto) 1.4 % (0.0-2.0) Sodium Level 139 MMOL/L (136-145) Potassium Level 4.6 MMOL/L (3.5-5.1) Chloride Level 109 MMOL/L (98-107) H Carbon Dioxide Level 19 MMOL/L (21-32) L Anion Gap 11 mmol/L (5-15) Blood Urea Nitrogen 32 mg/dL (7-18) H Creatinine 2.4 MG/DL (0.55-1.30) H Estimat Glomerular Filtration Rate 19.7 mL/min (>60) Glucose Level 105 MG/DL (74-106) Uric Acid 6.5 MG/DL (2.6-7.2) Calcium Level 8.5 MG/DL (8.5-10.1) Phosphorus Level 4.4 MG/DL (2.5-4.9) Magnesium Level 2.9 MG/DL (1.8-2.4) H Total Bilirubin 0.2 MG/DL (0.2-1.0) Direct Bilirubin < 0.1 MG/DL (0.0-0.3) Aspartate Amino Transf (AST/SGOT) 51 U/L (15-37) H Alanine Aminotransferase (ALT/SGPT) 44 U/L (12-78) Alkaline Phosphatase 90 U/L (46-116) Total Protein 7.4 G/DL (6.4-8.2) Albumin 3.2 G/DL (3.4-5.0) L Current Medications Medications (Trade) Dose Ordered Sig/Rosetta Route PRN Reason Start Time Stop Time Status Last Admin Dose Admin Acetaminophen (Tylenol) 650 mg Q4H PRN ORAL Mild Pain(Pain Scale 1-3)fever 11/22/19 08:30 12/22/19 08:29 11/26/19 07:02 Acetaminophen/ Codeine Phosphate (Tylenol #3) 1 tab Q6H PRN ORAL Severe Pain (Pain Scale 7-10) 11/22/19 08:30 11/29/19 08:29 11/22/19 10:25 Amlodipine Besylate (Norvasc) 5 mg BID ORAL 11/23/19 18:00 12/22/19 08:59 11/28/19 08:19 Dextrose (Dextrose 50%) 25 ml Q30M PRN IV Hypoglycemia 11/22/19 08:30 02/20/20 08:29 Dextrose (Dextrose 50%) 50 ml Q30M PRN IV Hypoglycemia 11/22/19 08:30 02/20/20 08:29 Epoetin Long (Epoetin Long-EPBX(NON ESRD)) 10,000 unit WED-WED-WED SUBQ 11/24/19 21:00 02/22/20 20:59 11/27/19 21:26 Glimepiride (AmaryL) 4 mg BID ORAL 11/22/19 09:00 12/22/19 08:59 11/27/19 17:16 Heparin Sodium (Porcine) (Heparin 5000 units/ml) 5,000 units EVERY 12 HOURS SUBQ 11/22/19 09:00 01/06/20 08:59 11/28/19 08:21 Hydralazine HCl (Apresoline) 50 mg Q8HR ORAL 11/22/19 14:00 02/20/20 13:59 11/28/19 14:12 Insulin Aspart (NovoLOG) BEFORE MEALS AND HS SUBQ 11/22/19 11:30 02/20/20 11:29 11/28/19 11:44 Losartan Potassium (Cozaar) 12.5 mg DAILY ORAL 11/26/19 16:00 12/26/19 15:59 11/28/19 08:18 Meropenem 500 mg/ Sodium Chloride 55 ml @ 110 mls/hr EVERY 12 HOURS IVPB 11/25/19 09:00 11/30/19 08:59 11/28/19 08:20 Metoclopramide HCl (Reglan) 10 mg BEFORE MEALS ORAL 11/26/19 13:15 12/26/19 13:14 11/28/19 11:43 Nateglinide (Starlix) 120 mg TIAC ORAL 11/22/19 11:30 12/22/19 11:29 11/28/19 11:43 Ondansetron HCl (Zofran) 4 mg Q4H PRN IVP Nausea & Vomiting 11/22/19 08:30 12/22/19 08:29 Pantoprazole (Protonix) 40 mg DAILY ORAL 11/26/19 09:00 12/26/19 08:59 11/28/19 08:18 Polyethylene Glycol (Miralax) 17 gm BEDTIME ORAL 11/24/19 21:00 12/24/19 20:59 11/25/19 21:18 Simethicone (Mylicon) 160 mg QIDPRN PRN ORAL GAS 11/26/19 09:00 02/24/20 08:59 11/26/19 09:34 Sitagliptin Phosphate (Januvia) 50 mg DAILY ORAL 11/24/19 09:00 12/22/19 08:59 11/28/19 08:19 Hortensia Hoffman M.D. Nov 28, 2019 14:16
--- NOTE | 2019-11-28 15:22 | NUR ---
NURSE HAND-OFF: Important Events on Shift: refused amaryl in the morning due to BS of 102, @11:30am BS 165mg/dl. Patient Status: stable Diet: cardiac, CCHO medium Pending Orders: Pending Results/Labs: Pending MD notification: Latest Vital Signs: Temperature 97.7 , Pulse 75 , B/P 150 /53 , Respiratory Rate 18 , O2 SAT 98 , Room Air, O2 Flow Rate . Vital Sign Comment: Latest Santiago Fall Score: 35 Fall Risk: Medium Risk Safety Measures: Call light Within Reach, Bed Alarm Zone 1, Side Rails Side Rails x2, Bed position Low and Locked. Fall Precautions: Yellow Socks Yellow Gown Door Sign Patient Fall Education Report given to Ji and endorsed plan of care.
--- NOTE | 2019-11-28 15:45 | Nephrology Progress Note ---
Assessment/Plan Problem List: (1) Acute on chronic renal insufficiency (2) History of diabetes mellitus (3) History of hypertension (4) Normocytic anemia Assessment Renal failure, most likely acute on chronic Rule out diabetic nephropathy Diabetes mellitus Coronary artery disease Anemia, related to kidney disease and or iron deficiency Plan November 27: Labs reviewed. Serum creatinine elias to 2.4. Continue current management. Continue to monitor serum creatinine while in-house. November 26: Labs reviewed. Serum creatinine 2.2 stable. Continue per PMD/c onsultants. November 25: Labs reviewed. Serum creatinine 2.2 stable. Trial of low-dose Reglan prior to meals for diabetic gastropathy. November 24: Labs reviewed. Serum creatinine stable. 1 more dose of IV iron. Continue per consultants. November 23: Labs reviewed. Serum creatinine stable and slightly lower. Due for stress test by cardiology. Continue per consultants. November 22: Start the patient on subcu Epogen and IV iron. Start sliding scale insulin. Kidney ultrasound: Negative for hydronephrosis 2D echocardiogram: Ejection fraction 60% Urine analysis, noted Urine spot electrolyte, noted Anemia work-up Monitor renal parameters Avoid nephrotoxic's Subjective ROS Limited/Unobtainable: No Constitutional: Reports: malaise Objective Objective Last 24 Hour Vital Signs Date Time Temp Pulse Resp B/P (MAP) Pulse Ox O2 Delivery O2 Flow Rate FiO2 11/28/19 14:12 150/53 11/28/19 12:00 97.7 75 18 128/56 (80) 98 11/28/19 09:00 Room Air 11/28/19 08:19 73 158/58 11/28/19 08:18 158/58 11/28/19 08:00 98.2 73 18 158/58 (91) 98 11/28/19 06:16 150/56 11/28/19 04:00 97.7 55 18 133/48 (76) 97 11/28/19 00:00 98.0 63 17 119/65 (83) 97 11/27/19 21:45 118/49 11/27/19 21:00 Room Air 11/27/19 20:00 97.2 72 16 123/49 (73) 98 11/27/19 17:17 70 111/56 11/27/19 16:00 98.2 70 19 111/56 (74) 96 Intake and Output 11/27/19 11/28/19 19:00 07:00 Intake Total 840 ml 240 ml Balance 840 ml 240 ml Intake Oral 840 ml 240 ml # Voids 3 2 Laboratory Tests 11/27/19 16:20: POC Whole Blood Glucose 208H 11/28/19 05:40: White Blood Count 7.4, Red Blood Count 2.78L, Hemoglobin 8.7L, Hematocrit 25.3L, Mean Corpuscular Volume 91, Mean Corpuscular Hemoglobin 31.4H, Mean Corpuscular Hemoglobin Concent 34.5, Red Cell Distribution Width 13.3, Platelet Count 306, Mean Platelet Volume 6.1L, Neutrophils (%) (Auto) 64.8, Lymphocytes (%) (Auto) 19.3L, Monocytes (%) (Auto) 8.7, Eosinophils (%) (Auto) 5.8H, Basophils (%) (Auto) 1.4, Sodium Level 139, Potassium Level 4.6, Chloride Level 109H, Carbon Dioxide Level 19L, Anion Gap 11, Blood Urea Nitrogen 32H, Creatinine 2.4H, Estimat Glomerular Filtration Rate 19.7, Glucose Level 105, Uric Acid 6.5, Calcium Level 8.5, Phosphorus Level 4.4, Magnesium Level 2.9H, Total Bilirubin 0.2, Direct Bilirubin < 0.1, Aspartate Amino Transf (AST/SGOT) 51H, Alanine Aminotransferase (ALT/SGPT) 44, Alkaline Phosphatase 90, Total Protein 7.4, Albumin 3.2L Height (Feet): 5 Height (Inches): 0.00 Weight (Pounds): 145 General Appearance: no apparent distress Cardiovascular: normal rate Respiratory/Chest: decreased breath sounds Abdomen: soft, distended Objective No change Austin Malone MD Nov 28, 2019 15:45
[2019-11-28 16:00] VITALS: BP 143/58
--- NOTE | 2019-11-28 16:06 | NUR ---
NURSE NOTES: PT AXOX4, CALM, RESTING IN BED. DENIES PAIN OR SOB/DIZZINESS WHEN AMBULATING. PT ASKS IF SHE WILL BE GOING HOME TODAY. RN EDUCATED PT WE WILL HAVE TO ASK DR SIMS WHEN HE ROUNDS. PT VERBALIZED UNDERSTANDING. PT STATES SHE HAS TRANSPORTATION HOME IF DISCHARGED HOME TODAY. CANE AT BEDSIDE.
--- NOTE | 2019-11-28 16:31 | Cardiology Progress Note ---
Assessment/Plan Assessment/Plan chest pain dm systemic htn pulm htn obesity renal insuf mpi neg duplexx neg ekg neg seem stable cardiac giang Objective Last 24 Hour Vital Signs Date Time Temp Pulse Resp B/P (MAP) Pulse Ox O2 Delivery O2 Flow Rate FiO2 11/28/19 16:00 97.9 74 18 143/58 (86) 96 11/28/19 14:12 150/53 11/28/19 12:00 97.7 75 18 128/56 (80) 98 11/28/19 09:00 Room Air 11/28/19 08:19 73 158/58 11/28/19 08:18 158/58 11/28/19 08:00 98.2 73 18 158/58 (91) 98 11/28/19 06:16 150/56 11/28/19 04:00 97.7 55 18 133/48 (76) 97 11/28/19 00:00 98.0 63 17 119/65 (83) 97 11/27/19 21:45 118/49 11/27/19 21:00 Room Air 11/27/19 20:00 97.2 72 16 123/49 (73) 98 11/27/19 17:17 70 111/56 General Appearance: no apparent distress, other - comfortabel in appearance Intake and Output 11/27/19 11/28/19 19:00 07:00 Intake Total 840 ml 240 ml Balance 840 ml 240 ml Intake Oral 840 ml 240 ml # Voids 3 2 Laboratory Tests Test 11/28/19 05:40 White Blood Count 7.4 K/UL (4.8-10.8) Red Blood Count 2.78 M/UL (4.20-5.40) L Hemoglobin 8.7 G/DL (12.0-16.0) L Hematocrit 25.3 % (37.0-47.0) L Mean Corpuscular Volume 91 FL (80-99) Mean Corpuscular Hemoglobin 31.4 PG (27.0-31.0) H Mean Corpuscular Hemoglobin Concent 34.5 G/DL (32.0-36.0) Red Cell Distribution Width 13.3 % (11.6-14.8) Platelet Count 306 K/UL (150-450) Mean Platelet Volume 6.1 FL (6.5-10.1) L Neutrophils (%) (Auto) 64.8 % (45.0-75.0) Lymphocytes (%) (Auto) 19.3 % (20.0-45.0) L Monocytes (%) (Auto) 8.7 % (1.0-10.0) Eosinophils (%) (Auto) 5.8 % (0.0-3.0) H Basophils (%) (Auto) 1.4 % (0.0-2.0) Sodium Level 139 MMOL/L (136-145) Potassium Level 4.6 MMOL/L (3.5-5.1) Chloride Level 109 MMOL/L (98-107) H Carbon Dioxide Level 19 MMOL/L (21-32) L Anion Gap 11 mmol/L (5-15) Blood Urea Nitrogen 32 mg/dL (7-18) H Creatinine 2.4 MG/DL (0.55-1.30) H Estimat Glomerular Filtration Rate 19.7 mL/min (>60) Glucose Level 105 MG/DL (74-106) Uric Acid 6.5 MG/DL (2.6-7.2) Calcium Level 8.5 MG/DL (8.5-10.1) Phosphorus Level 4.4 MG/DL (2.5-4.9) Magnesium Level 2.9 MG/DL (1.8-2.4) H Total Bilirubin 0.2 MG/DL (0.2-1.0) Direct Bilirubin < 0.1 MG/DL (0.0-0.3) Aspartate Amino Transf (AST/SGOT) 51 U/L (15-37) H Alanine Aminotransferase (ALT/SGPT) 44 U/L (12-78) Alkaline Phosphatase 90 U/L (46-116) Total Protein 7.4 G/DL (6.4-8.2) Albumin 3.2 G/DL (3.4-5.0) Pool Ramirez MD Nov 28, 2019 16:31
--- NOTE | 2019-11-28 18:26 | Internal Med Progress Note ---
Subjective Date of Service: Nov 28, 2019 Physician Name Tony Reyes Attending Physician Morro Rodríguez MD Current Medications Medications (Trade) Dose Ordered Sig/Rosetta Route PRN Reason Start Time Stop Time Status Last Admin Dose Admin Acetaminophen (Tylenol) 650 mg Q4H PRN ORAL Mild Pain(Pain Scale 1-3)fever 11/22/19 08:30 12/22/19 08:29 11/26/19 07:02 Acetaminophen/ Codeine Phosphate (Tylenol #3) 1 tab Q6H PRN ORAL Severe Pain (Pain Scale 7-10) 11/22/19 08:30 11/29/19 08:29 11/22/19 10:25 Amlodipine Besylate (Norvasc) 5 mg BID ORAL 11/23/19 18:00 12/22/19 08:59 11/28/19 17:10 Dextrose (Dextrose 50%) 25 ml Q30M PRN IV Hypoglycemia 11/22/19 08:30 02/20/20 08:29 Dextrose (Dextrose 50%) 50 ml Q30M PRN IV Hypoglycemia 11/22/19 08:30 02/20/20 08:29 Epoetin Long (Epoetin Long-EPBX(NON ESRD)) 10,000 unit WED-WED-WED SUBQ 11/24/19 21:00 02/22/20 20:59 11/27/19 21:26 Glimepiride (AmaryL) 4 mg BID ORAL 11/22/19 09:00 12/22/19 08:59 11/28/19 17:09 Heparin Sodium (Porcine) (Heparin 5000 units/ml) 5,000 units EVERY 12 HOURS SUBQ 11/22/19 09:00 01/06/20 08:59 11/28/19 08:21 Hydralazine HCl (Apresoline) 50 mg Q8HR ORAL 11/22/19 14:00 02/20/20 13:59 11/28/19 14:12 Insulin Aspart (NovoLOG) BEFORE MEALS AND HS SUBQ 11/22/19 11:30 02/20/20 11:29 11/28/19 17:10 Losartan Potassium (Cozaar) 12.5 mg DAILY ORAL 11/26/19 16:00 12/26/19 15:59 11/28/19 08:18 Metoclopramide HCl (Reglan) 10 mg BEFORE MEALS ORAL 11/26/19 13:15 12/26/19 13:14 11/28/19 17:09 Nateglinide (Starlix) 120 mg TIAC ORAL 11/22/19 11:30 12/22/19 11:29 11/28/19 17:09 Ondansetron HCl (Zofran) 4 mg Q4H PRN IVP Nausea & Vomiting 11/22/19 08:30 12/22/19 08:29 Pantoprazole (Protonix) 40 mg DAILY ORAL 11/26/19 09:00 12/26/19 08:59 11/28/19 08:18 Polyethylene Glycol (Miralax) 17 gm BEDTIME ORAL 11/24/19 21:00 12/24/19 20:59 11/25/19 21:18 Simethicone (Mylicon) 160 mg QIDPRN PRN ORAL GAS 11/26/19 09:00 02/24/20 08:59 11/26/19 09:34 Sitagliptin Phosphate (Januvia) 50 mg DAILY ORAL 11/24/19 09:00 12/22/19 08:59 11/28/19 08:19 Allergies: Coded Allergies: No Known Allergies (Unverified , 11/21/19) ROS Limited/Unobtainable: No Constitutional: Reports: no symptoms HEENT: Reports: no symptoms Cardiovascular: Reports: no symptoms Respiratory: Reports: no symptoms Gastrointestinal/Abdominal: Reports: no symptoms Genitourinary: Reports: no symptoms Neurologic/Psychiatric: Reports: no symptoms Subjective 74 YO F admitted with chest pain. Now pneumonia and jmashid heart failure. Cover for Int Jon-DR Rodríguez. Objective Last Vital Signs Date Time Temp Pulse Resp B/P (MAP) Pulse Ox O2 Delivery O2 Flow Rate FiO2 11/28/19 17:10 74 143/58 11/28/19 16:00 97.9 18 96 11/28/19 09:00 Room Air Laboratory Tests Test 11/28/19 05:40 White Blood Count 7.4 K/UL (4.8-10.8) Red Blood Count 2.78 M/UL (4.20-5.40) L Hemoglobin 8.7 G/DL (12.0-16.0) L Hematocrit 25.3 % (37.0-47.0) L Mean Corpuscular Volume 91 FL (80-99) Mean Corpuscular Hemoglobin 31.4 PG (27.0-31.0) H Mean Corpuscular Hemoglobin Concent 34.5 G/DL (32.0-36.0) Red Cell Distribution Width 13.3 % (11.6-14.8) Platelet Count 306 K/UL (150-450) Mean Platelet Volume 6.1 FL (6.5-10.1) L Neutrophils (%) (Auto) 64.8 % (45.0-75.0) Lymphocytes (%) (Auto) 19.3 % (20.0-45.0) L Monocytes (%) (Auto) 8.7 % (1.0-10.0) Eosinophils (%) (Auto) 5.8 % (0.0-3.0) H Basophils (%) (Auto) 1.4 % (0.0-2.0) Sodium Level 139 MMOL/L (136-145) Potassium Level 4.6 MMOL/L (3.5-5.1) Chloride Level 109 MMOL/L (98-107) H Carbon Dioxide Level 19 MMOL/L (21-32) L Anion Gap 11 mmol/L (5-15) Blood Urea Nitrogen 32 mg/dL (7-18) H Creatinine 2.4 MG/DL (0.55-1.30) H Estimat Glomerular Filtration Rate 19.7 mL/min (>60) Glucose Level 105 MG/DL (74-106) Uric Acid 6.5 MG/DL (2.6-7.2) Calcium Level 8.5 MG/DL (8.5-10.1) Phosphorus Level 4.4 MG/DL (2.5-4.9) Magnesium Level 2.9 MG/DL (1.8-2.4) H Total Bilirubin 0.2 MG/DL (0.2-1.0) Direct Bilirubin < 0.1 MG/DL (0.0-0.3) Aspartate Amino Transf (AST/SGOT) 51 U/L (15-37) H Alanine Aminotransferase (ALT/SGPT) 44 U/L (12-78) Alkaline Phosphatase 90 U/L (46-116) Total Protein 7.4 G/DL (6.4-8.2) Albumin 3.2 G/DL (3.4-5.0) L Intake and Output 11/27/19 11/28/19 19:00 07:00 Intake Total 840 ml 240 ml Balance 840 ml 240 ml Intake Oral 840 ml 240 ml # Voids 3 2 Objective PHYSICAL EXAMINATION: GENERAL: The patient is a well-developed and well-nourished female, no apparent distress. HEENT: Eyes, pupils equal and responsive to light and accommodation. Extraocular movements are intact. NECK: Supple without lymphadenopathy. CHEST: Lungs are clear to auscultation bilaterally without wheezes or rales. CARDIOVASCULAR: Regular rhythm and rate. S1, S2 are normal without murmurs, rubs, or gallops. ABDOMEN: Soft, nontender, and nondistended. Positive bowel sounds. No evidence of hepatosplenomegaly. Currently, no rebound or guarding noted. EXTREMITIES: Negative for clubbing, cyanosis, or edema. RECTAL: Not performed. GENITAL: Not performed. NEUROLOGIC: Cranial nerves II through XII are grossly intact without focal deficits. Motor strength is 5/5 bilaterally. Deep tendon reflexes are 2+, plantar. Assessment/Plan Assessment/Plan ASSESSMENT: This is a 74-year-old female: 1. Chest pain. 2. Right lower lobe pneumonia. 3. Congestive heart failure. 4. Renal failure. 5. Hypertension. 6. Diabetes type 2. 7. UTI-ESBL E.Coli TREATMENT: 1. Chest pain/congestive heart failure. Cardiology consultation has been obtained with Dr. Pool Santana. Serial troponin levels will be performed. The patient's current BNP is greater than 16,000. An echocardiogram LVEF=60%. Cardiolite stress test=non-ischemic 2. Right lower lobe pneumonia. Pulmonary consultation has been obtained with Dr. Rodrigo Marroquin. The patient has been started empirically on azithromycin and ceftriaxone. Follow recommendations of Pulmonary. 3. Renal failure. A Nephrology consultation has been obtained with Dr. Austin Malone. Follow recommendations of Dr. Malone. Renal failure may be secondary to long-standing diabetes versus acute on chronic renal failure. 4. Hypertension. Continue hydralazine and amlodipine as above. 5. Diabetes type 2. NovoLog sliding scale has been instituted. 6. S/P ABX=meropenem D#3/3 7. Plan to D/C am 11/29/19 Tony Reyes MD Nov 28, 2019 18:26
--- NOTE | 2019-11-28 19:12 | NUR ---
NURSE HAND-OFF: Important Events on Shift: PER DR SIMS, POSSIBLE DISCHARGE TOMORROW. Patient Status: STABLE Diet: CARDIAC/CCHO Pending Orders: N/A Pending Results/Labs:N/A Pending MD notification:N/A Latest Vital Signs: Temperature 97.9 , Pulse 74 , B/P 143 /58 , Respiratory Rate 18 , O2 SAT 96 , Room Air, O2 Flow Rate . Vital Sign Comment: STABLE Latest Santiago Fall Score: 35 Fall Risk: Medium Risk Safety Measures: Call light Within Reach, Bed Alarm Zone 1, Side Rails Side Rails x2, Bed position Low and Locked. Fall Precautions: Yellow Socks Yellow Gown Door Sign Patient Fall Education Report given to Christine NUNEZ RN.
--- NOTE | 2019-11-28 19:35 | NUR ---
NURSE NOTES: Patient asleep in bed, no signs of pain, on room air, no SOB noted. Call light and needs in reach. Bed in lowest and lock engaged. Will continue plan of care.
[2019-11-28 20:00] VITALS: BP 146/61
[2019-11-28] MEDS: Miralax 17gm pkt ORAL SCH (20:59)
[2019-11-29] VITALS: BP 125/55
[2019-11-29 04:00] VITALS: BP 140/50
[2019-11-29] MEDS: NovoLOG Insulin Flexpen SUBQ SCH ×2 (05:50→12:24)
[2019-11-29] MEDS: HydrALAZINE 50mg tab ORAL SCH ×2 (06:10→13:21)
[2019-11-29 06:23] LABS: BASOPHILS % (AUTO) 1.6 % (0.0-2.0); EOSINOPHILS % (AUTO) 5.7 % (0.0-3.0); HEMATOCRIT 25.5 % (37.0-47.0); HEMOGLOBIN 8.6 G/DL (12.0-16.0); LYMPHOCYTES % (AUTO) 23.4 % (20.0-45.0); MEAN CORPUSCULAR VOLUME 91 FL (80-99); MONOCYTES % (AUTO) 8.1 % (1.0-10.0); NEUTROPHILS % (AUTO) 61.1 % (45.0-75.0); PLATELET COUNT 301 K/UL (150-450); RED CELL DISTRIBUTION WIDTH 13.8 % (11.6-14.8); WHITE BLOOD COUNT 7.4 K/UL (4.8-10.8)
--- NOTE | 2019-11-29 06:33 | NUR ---
NURSE HAND-OFF: Important Events on Shift: none Patient Status: stable Diet: Cardiac Pending Orders: AM labs Pending Results/Labs: multiple Pending MD notification: Latest Vital Signs: Temperature 98.2 , Pulse 75 , B/P 135 /45 , Respiratory Rate 18 , O2 SAT 93 , Room Air, O2 Flow Rate . Vital Sign Comment: Latest Santiago Fall Score: 35 Fall Risk: Medium Risk Safety Measures: Call light Within Reach, Bed Alarm Zone 1, Side Rails Side Rails x2, Bed position Low and Locked. Fall Precautions: Yellow Socks Yellow Gown Door Sign Patient Fall Education
[2019-11-29 06:48] LABS: ALBUMIN/GLOBULIN RATIO 0.7 (1.0-2.7); BILIRUBIN,TOTAL 0.3 MG/DL (0.2-1.0); CALCIUM 8.4 MG/DL (8.5-10.1); CREATININE 2.1 MG/DL (0.55-1.30); POTASSIUM 4.4 MMOL/L (3.5-5.1)
--- NOTE | 2019-11-29 07:33 | NUR ---
HAND-OFF: Report given to DARIUS Torres.
--- NOTE | 2019-11-29 07:43 | NUR ---
NURSE NOTES: PT AXOX4, SITTING UP ON SIDE OF BED EATING BREAKFAST. PT DENIES PAIN AT THIS TIME. IN NO APPARENT DISTRESS AT THIS TIME. WILL CONTINUE TO MONITOR.
[2019-11-29 08:00] VITALS: BP 148/66
--- NOTE | 2019-11-29 08:36 | NUR ---
RADIOLOGY DEPT., CHEST X-RAY DONE.-P.DYE
[2019-11-29] MEDS: Glimepiride 4mg tab ORAL SCH (09:01)
[2019-11-29] MEDS: Losartan 25mg tab ORAL SCH (09:01)
[2019-11-29] MEDS: sitaGLIPtin 50mg tab ORAL SCH (09:01)
[2019-11-29] MEDS: Heparin 5000 units/ml inj SUBQ SCH (09:03)
--- NOTE | 2019-11-29 11:18 | Pulmonology Progress Note ---
Subjective ROS Limited/Unobtainable: No Allergies: Coded Allergies: No Known Allergies (Unverified , 11/21/19) Objective Last 24 Hour Vital Signs Date Time Temp Pulse Resp B/P (MAP) Pulse Ox O2 Delivery O2 Flow Rate FiO2 11/29/19 09:01 148/66 11/29/19 09:01 76 148/66 11/29/19 09:00 Room Air 11/29/19 08:00 97.3 76 18 148/66 (93) 96 11/29/19 06:10 135/45 11/29/19 04:00 98.2 75 18 140/50 (80) 93 11/29/19 00:00 98.8 69 18 125/55 (78) 93 11/28/19 21:00 Room Air 11/28/19 21:00 146/61 11/28/19 20:00 98.5 71 19 146/61 (89) 93 11/28/19 17:10 74 143/58 11/28/19 16:00 97.9 74 18 143/58 (86) 96 11/28/19 14:12 150/53 11/28/19 12:00 97.7 75 18 128/56 (80) 98 Intake and Output 11/28/19 11/29/19 19:00 07:00 Intake Total 775 ml Balance 775 ml Intake Oral 720 ml IV Total 55 ml # Voids 3 2 General Appearance: WD/WN HEENT: normocephalic, atraumatic Respiratory: chest wall non-tender, lungs clear, normal breath sounds, no respiratory distress Abdomen: normal bowel sounds, soft, non tender Genitourinary: normal external genitalia Extremities: no clubbing Skin: no rash Neurologic: housekeeping lead II-XII grossly normal Lymphatic: no groin adenopathy Laboratory Tests 11/29/19 04:50: White Blood Count 7.4, Red Blood Count 2.80L, Hemoglobin 8.6L, Hematocrit 25.5L, Mean Corpuscular Volume 91, Mean Corpuscular Hemoglobin 30.8, Mean Corpuscular Hemoglobin Concent 33.8, Red Cell Distribution Width 13.8, Platelet Count 301, Mean Platelet Volume 5.9L, Neutrophils (%) (Auto) 61.1, Lymphocytes (%) (Auto) 23.4, Monocytes (%) (Auto) 8.1, Eosinophils (%) (Auto) 5.7H, Basophils (%) (Auto) 1.6, Erythrocyte Sedimentation Rate 121H, Sodium Level 140, Potassium Level 4.4, Chloride Level 109H, Carbon Dioxide Level 19L, Anion Gap 12, Blood Urea Nitrogen 29H, Creatinine 2.1H, Estimat Glomerular Filtration Rate 22.9, Glucose Level 104, Calcium Level 8.4L, Phosphorus Level 4.0, Magnesium Level 2.8H, Total Bilirubin 0.3, Aspartate Amino Transf (AST/SGOT) 66H, Alanine Aminotransferase (ALT/SGPT) 63, Alkaline Phosphatase 87, C-Reactive Protein, Quantitative 2.3H, Total Protein 7.1, Albumin 3.0L, Globulin 4.1, Albumin/Globulin Ratio 0.7L Current Medications Medications (Trade) Dose Ordered Sig/Rosetta Route PRN Reason Start Time Stop Time Status Last Admin Dose Admin Acetaminophen (Tylenol) 650 mg Q4H PRN ORAL Mild Pain(Pain Scale 1-3)fever 11/22/19 08:30 12/22/19 08:29 11/26/19 07:02 Amlodipine Besylate (Norvasc) 5 mg BID ORAL 11/23/19 18:00 12/22/19 08:59 11/29/19 09:01 Dextrose (Dextrose 50%) 25 ml Q30M PRN IV Hypoglycemia 11/22/19 08:30 02/20/20 08:29 Dextrose (Dextrose 50%) 50 ml Q30M PRN IV Hypoglycemia 11/22/19 08:30 02/20/20 08:29 Epoetin Long (Epoetin Long-EPBX(NON ESRD)) 10,000 unit WED-WED-WED SUBQ 11/24/19 21:00 02/22/20 20:59 11/27/19 21:26 Glimepiride (AmaryL) 4 mg BID ORAL 11/22/19 09:00 12/22/19 08:59 11/29/19 09:01 Heparin Sodium (Porcine) (Heparin 5000 units/ml) 5,000 units EVERY 12 HOURS SUBQ 11/22/19 09:00 01/06/20 08:59 11/29/19 09:03 Hydralazine HCl (Apresoline) 50 mg Q8HR ORAL 11/22/19 14:00 02/20/20 13:59 11/29/19 06:10 Insulin Aspart (NovoLOG) BEFORE MEALS AND HS SUBQ 11/22/19 11:30 02/20/20 11:29 11/28/19 21:09 Losartan Potassium (Cozaar) 12.5 mg DAILY ORAL 11/26/19 16:00 12/26/19 15:59 11/29/19 09:01 Metoclopramide HCl (Reglan) 10 mg BEFORE MEALS ORAL 11/26/19 13:15 12/26/19 13:14 11/29/19 06:10 Nateglinide (Starlix) 120 mg TIAC ORAL 11/22/19 11:30 12/22/19 11:29 11/29/19 06:10 Ondansetron HCl (Zofran) 4 mg Q4H PRN IVP Nausea & Vomiting 11/22/19 08:30 12/22/19 08:29 Pantoprazole (Protonix) 40 mg DAILY ORAL 11/26/19 09:00 12/26/19 08:59 11/29/19 09:01 Polyethylene Glycol (Miralax) 17 gm BEDTIME ORAL 11/24/19 21:00 12/24/19 20:59 11/28/19 20:59 Simethicone (Mylicon) 160 mg QIDPRN PRN ORAL GAS 11/26/19 09:00 02/24/20 08:59 11/26/19 09:34 Sitagliptin Phosphate (Januvia) 50 mg DAILY ORAL 11/24/19 09:00 12/22/19 08:59 11/29/19 09:01 Assessment/Plan Problems: (1) ACS (acute coronary syndrome) (2) Community acquired pneumonia (3) Acute on chronic renal insufficiency (4) History of hypertension (5) History of diabetes mellitus Assessment/Plan cxr showing clearing of right sided infiltrate crp is down from 20 to 2 doing better troponin are all negative titrate fio2 to sat of 92% antitussives symptomatic treatment sliding scale diabetic diet Rodrigo Marroquin MD Nov 29, 2019 11:18
[2019-11-29 12:00] VITALS: BP 154/67
--- NOTE | 2019-11-29 12:18 | Nephrology Progress Note ---
Assessment/Plan Problem List: (1) Acute on chronic renal insufficiency (2) History of diabetes mellitus (3) History of hypertension (4) Normocytic anemia Assessment Renal failure, most likely acute on chronic Rule out diabetic nephropathy Diabetes mellitus Coronary artery disease Anemia, related to kidney disease and or iron deficiency Plan November 28: Labs reviewed. Serum creatinine declined to 2.1. Medication list reviewed. Patient was treated for ESBL UTI. Stable for discharge from renal standpoint of view. November 27: Labs reviewed. Serum creatinine elias to 2.4. Continue current management. Continue to monitor serum creatinine while in-house. November 26: Labs reviewed. Serum creatinine 2.2 stable. Continue per PMD/consultants. November 25: Labs reviewed. Serum creatinine 2.2 stable. Trial of low-dose Reglan prior to meals for diabetic gastropathy. November 24: Labs reviewed. Serum creatinine stable. 1 more dose of IV iron. Continue per consultants. November 23: Labs reviewed. Serum creatinine stable and slightly lower. Due for stress test by cardiology. Continue per consultants. November 22: Start the patient on subcu Epogen and IV iron. Start sliding scale insulin. Kidney ultrasound: Negative for hydronephrosis 2D echocardiogram: Ejection fraction 60% Urine analysis, noted Urine spot electrolyte, noted Anemia work-up Monitor renal parameters Avoid nephrotoxic's Subjective ROS Limited/Unobtainable: No Constitutional: Reports: malaise, weakness Objective Objective Last 24 Hour Vital Signs Date Time Temp Pulse Resp B/P (MAP) Pulse Ox O2 Delivery O2 Flow Rate FiO2 11/29/19 09:01 148/66 11/29/19 09:01 76 148/66 11/29/19 09:00 Room Air 11/29/19 08:00 97.3 76 18 148/66 (93) 96 11/29/19 06:10 135/45 11/29/19 04:00 98.2 75 18 140/50 (80) 93 11/29/19 00:00 98.8 69 18 125/55 (78) 93 11/28/19 21:00 Room Air 11/28/19 21:00 146/61 11/28/19 20:00 98.5 71 19 146/61 (89) 93 11/28/19 17:10 74 143/58 11/28/19 16:00 97.9 74 18 143/58 (86) 96 11/28/19 14:12 150/53 Intake and Output 11/28/19 11/29/19 19:00 07:00 Intake Total 775 ml Balance 775 ml Intake Oral 720 ml IV Total 55 ml # Voids 3 2 Current Medications Medications (Trade) Dose Ordered Sig/Rosetta Route PRN Reason Start Time Stop Time Status Last Admin Dose Admin Acetaminophen (Tylenol) 650 mg Q4H PRN ORAL Mild Pain(Pain Scale 1-3)fever 11/22/19 08:30 12/22/19 08:29 11/26/19 07:02 Amlodipine Besylate (Norvasc) 5 mg BID ORAL 11/23/19 18:00 12/22/19 08:59 11/29/19 09:01 Dextrose (Dextrose 50%) 25 ml Q30M PRN IV Hypoglycemia 11/22/19 08:30 02/20/20 08:29 Dextrose (Dextrose 50%) 50 ml Q30M PRN IV Hypoglycemia 11/22/19 08:30 02/20/20 08:29 Epoetin Long (Epoetin Long-EPBX(NON ESRD)) 10,000 unit WED-WED-WED SUBQ 11/24/19 21:00 02/22/20 20:59 11/27/19 21:26 Glimepiride (AmaryL) 4 mg BID ORAL 11/22/19 09:00 12/22/19 08:59 11/29/19 09:01 Heparin Sodium (Porcine) (Heparin 5000 units/ml) 5,000 units EVERY 12 HOURS SUBQ 11/22/19 09:00 01/06/20 08:59 11/29/19 09:03 Hydralazine HCl (Apresoline) 50 mg Q8HR ORAL 11/22/19 14:00 02/20/20 13:59 11/29/19 06:10 Insulin Aspart (NovoLOG) BEFORE MEALS AND HS SUBQ 11/22/19 11:30 02/20/20 11:29 11/28/19 21:09 Iron Sucrose 200 mg/Sodium Chloride 120 ml @ 240 mls/hr ONCE ONCE IVPB 11/29/19 13:00 11/29/19 13:29 Losartan Potassium (Cozaar) 12.5 mg DAILY ORAL 11/26/19 16:00 12/26/19 15:59 11/29/19 09:01 Metoclopramide HCl (Reglan) 10 mg BEFORE MEALS ORAL 11/26/19 13:15 12/26/19 13:14 11/29/19 06:10 Nateglinide (Starlix) 120 mg TIAC ORAL 11/22/19 11:30 12/22/19 11:29 11/29/19 06:10 Ondansetron HCl (Zofran) 4 mg Q4H PRN IVP Nausea & Vomiting 11/22/19 08:30 12/22/19 08:29 Pantoprazole (Protonix) 40 mg DAILY ORAL 11/26/19 09:00 12/26/19 08:59 11/29/19 09:01 Polyethylene Glycol (Miralax) 17 gm BEDTIME ORAL 11/24/19 21:00 12/24/19 20:59 11/28/19 20:59 Simethicone (Mylicon) 160 mg QIDPRN PRN ORAL GAS 11/26/19 09:00 02/24/20 08:59 11/26/19 09:34 Sitagliptin Phosphate (Januvia) 50 mg DAILY ORAL 11/24/19 09:00 12/22/19 08:59 11/29/19 09:01 Laboratory Tests 11/29/19 04:50: White Blood Count 7.4, Red Blood Count 2.80L, Hemoglobin 8.6L, Hematocrit 25.5L, Mean Corpuscular Volume 91, Mean Corpuscular Hemoglobin 30.8, Mean Corpuscular Hemoglobin Concent 33.8, Red Cell Distribution Width 13.8, Platelet Count 301, Mean Platelet Volume 5.9L, Neutrophils (%) (Auto) 61.1, Lymphocytes (%) (Auto) 23.4, Monocytes (%) (Auto) 8.1, Eosinophils (%) (Auto) 5.7H, Basophils (%) (Auto) 1.6, Erythrocyte Sedimentation Rate 121H, Sodium Level 140, Potassium Level 4.4, Chloride Level 109H, Carbon Dioxide Level 19L, Anion Gap 12, Blood Urea Nitrogen 29H, Creatinine 2.1H, Estimat Glomerular Filtration Rate 22.9, Glucose Level 104, Calcium Level 8.4L, Phosphorus Level 4.0, Magnesium Level 2.8H, Total Bilirubin 0.3, Aspartate Amino Transf (AST/SGOT) 66H, Alanine Aminotransferase (ALT/SGPT) 63, Alkaline Phosphatase 87, C-Reactive Protein, Quantitative 2.3H, Total Protein 7.1, Albumin 3.0L, Globulin 4.1, Albumin/Globulin Ratio 0.7L Height (Feet): 5 Height (Inches): 0.00 Weight (Pounds): 145 General Appearance: no apparent distress Cardiovascular: normal rate Respiratory/Chest: lungs clear Abdomen: soft Objective No change Austin Malone MD Nov 29, 2019 12:18
--- NOTE | 2019-11-29 12:38 | NUR ---
*-*DISCHARGE PLANNING*-* PATIENT HAS BEEN REFERRED TO: [facility] P: [phone] S/W JENISE, WILL CALL BACK AFTER REVIEW.
--- NOTE | 2019-11-29 12:55 | Infectious Diseases Prog Note ---
Assessment/Plan Assessment: COVID19 neg x2 (11/20, Rapid COVID PCR neg) CAP, sp rx -11/20 CXR: Cardiomegaly. Bilateral right greater than left interstitial and airspace edema versus infiltrate Low grade fever; SP Leukocytosis, SP -11/21 Bcx Neg UTI, sp rx -u/a wbc tnct, nit neg, leuk +3; ucx >100k ESBL E.coli (S Zosyn, macrobid, bactrim, enrique) Chest pain NIKI Vs CKD DM2 HTN CHF CAD Plan: -Cont to monitor off abx -11/27 SP Meropenem #4 -11/23 SP Ceftriaxone and Azithromycin #4 -f/u cx -Monitor CBC/CMP, temperatures -COVID19 neg x2 Thank you for this consultation. Will continue to follow along with you. Discussed with RN. Subjective Allergies: Coded Allergies: No Known Allergies (Unverified , 11/21/19) afebrile no leukocytosis at RA Objective Last 24 Hour Vital Signs Date Time Temp Pulse Resp B/P (MAP) Pulse Ox O2 Delivery O2 Flow Rate FiO2 11/29/19 09:01 148/66 11/29/19 09:01 76 148/66 11/29/19 09:00 Room Air 11/29/19 08:00 97.3 76 18 148/66 (93) 96 11/29/19 06:10 135/45 11/29/19 04:00 98.2 75 18 140/50 (80) 93 11/29/19 00:00 98.8 69 18 125/55 (78) 93 11/28/19 21:00 Room Air 11/28/19 21:00 146/61 11/28/19 20:00 98.5 71 19 146/61 (89) 93 11/28/19 17:10 74 143/58 11/28/19 16:00 97.9 74 18 143/58 (86) 96 11/28/19 14:12 150/53 Height (Feet): 5 Height (Inches): 0.00 Weight (Pounds): 145 General Appearance: WD/WN Lines, tubes and drains: peripheral HEENT: normocephalic, atraumatic Neck: non-tender, normal alignment, supple, normal inspection Respiratory/Chest: chest wall non-tender, lungs clear, normal breath sounds, rhonchi - right Cardiovascular/Chest: normal peripheral pulses, normal rate, regularly irregular Abdomen: normal bowel sounds, non tender Laboratory Tests Test 11/29/19 04:50 White Blood Count 7.4 K/UL (4.8-10.8) Red Blood Count 2.80 M/UL (4.20-5.40) L Hemoglobin 8.6 G/DL (12.0-16.0) L Hematocrit 25.5 % (37.0-47.0) L Mean Corpuscular Volume 91 FL (80-99) Mean Corpuscular Hemoglobin 30.8 PG (27.0-31.0) Mean Corpuscular Hemoglobin Concent 33.8 G/DL (32.0-36.0) Red Cell Distribution Width 13.8 % (11.6-14.8) Platelet Count 301 K/UL (150-450) Mean Platelet Volume 5.9 FL (6.5-10.1) L Neutrophils (%) (Auto) 61.1 % (45.0-75.0) Lymphocytes (%) (Auto) 23.4 % (20.0-45.0) Monocytes (%) (Auto) 8.1 % (1.0-10.0) Eosinophils (%) (Auto) 5.7 % (0.0-3.0) H Basophils (%) (Auto) 1.6 % (0.0-2.0) Erythrocyte Sedimentation Rate 121 MM/HR (0-30) H Sodium Level 140 MMOL/L (136-145) Potassium Level 4.4 MMOL/L (3.5-5.1) Chloride Level 109 MMOL/L (98-107) H Carbon Dioxide Level 19 MMOL/L (21-32) L Anion Gap 12 mmol/L (5-15) Blood Urea Nitrogen 29 mg/dL (7-18) H Creatinine 2.1 MG/DL (0.55-1.30) H Estimat Glomerular Filtration Rate 22.9 mL/min (>60) Glucose Level 104 MG/DL (74-106) Calcium Level 8.4 MG/DL (8.5-10.1) L Phosphorus Level 4.0 MG/DL (2.5-4.9) Magnesium Level 2.8 MG/DL (1.8-2.4) H Total Bilirubin 0.3 MG/DL (0.2-1.0) Aspartate Amino Transf (AST/SGOT) 66 U/L (15-37) H Alanine Aminotransferase (ALT/SGPT) 63 U/L (12-78) Alkaline Phosphatase 87 U/L (46-116) C-Reactive Protein, Quantitative 2.3 mg/dL (0.00-0.90) H Total Protein 7.1 G/DL (6.4-8.2) Albumin 3.0 G/DL (3.4-5.0) L Globulin 4.1 g/dL Albumin/Globulin Ratio 0.7 (1.0-2.7) L Current Medications Medications (Trade) Dose Ordered Sig/Rosetta Route PRN Reason Start Time Stop Time Status Last Admin Dose Admin Acetaminophen (Tylenol) 650 mg Q4H PRN ORAL Mild Pain(Pain Scale 1-3)fever 11/22/19 08:30 12/22/19 08:29 11/26/19 07:02 Amlodipine Besylate (Norvasc) 5 mg BID ORAL 11/23/19 18:00 12/22/19 08:59 11/29/19 09:01 Dextrose (Dextrose 50%) 25 ml Q30M PRN IV Hypoglycemia 11/22/19 08:30 02/20/20 08:29 Dextrose (Dextrose 50%) 50 ml Q30M PRN IV Hypoglycemia 11/22/19 08:30 02/20/20 08:29 Epoetin Long (Epoetin Long-EPBX(NON ESRD)) 10,000 unit WED-WED-WED SUBQ 11/24/19 21:00 02/22/20 20:59 11/27/19 21:26 Glimepiride (AmaryL) 4 mg BID ORAL 11/22/19 09:00 12/22/19 08:59 11/29/19 09:01 Heparin Sodium (Porcine) (Heparin 5000 units/ml) 5,000 units EVERY 12 HOURS SUBQ 11/22/19 09:00 01/06/20 08:59 11/29/19 09:03 Hydralazine HCl (Apresoline) 50 mg Q8HR ORAL 11/22/19 14:00 02/20/20 13:59 11/29/19 06:10 Insulin Aspart (NovoLOG) BEFORE MEALS AND HS SUBQ 11/22/19 11:30 02/20/20 11:29 11/29/19 12:24 Iron Sucrose 200 mg/Sodium Chloride 120 ml @ 240 mls/hr ONCE ONCE IVPB 11/29/19 13:00 11/29/19 13:29 Losartan Potassium (Cozaar) 12.5 mg DAILY ORAL 11/26/19 16:00 12/26/19 15:59 11/29/19 09:01 Metoclopramide HCl (Reglan) 10 mg BEFORE MEALS ORAL 11/26/19 13:15 12/26/19 13:14 11/29/19 12:24 Nateglinide (Starlix) 120 mg TIAC ORAL 11/22/19 11:30 12/22/19 11:29 11/29/19 12:24 Ondansetron HCl (Zofran) 4 mg Q4H PRN IVP Nausea & Vomiting 11/22/19 08:30 12/22/19 08:29 Pantoprazole (Protonix) 40 mg DAILY ORAL 11/26/19 09:00 12/26/19 08:59 11/29/19 09:01 Polyethylene Glycol (Miralax) 17 gm BEDTIME ORAL 11/24/19 21:00 12/24/19 20:59 11/28/19 20:59 Simethicone (Mylicon) 160 mg QIDPRN PRN ORAL GAS 11/26/19 09:00 02/24/20 08:59 11/26/19 09:34 Sitagliptin Phosphate (Januvia) 50 mg DAILY ORAL 11/24/19 09:00 12/22/19 08:59 11/29/19 09:01 Hortensia Hoffman M.D. Nov 29, 2019 12:55
[2019-11-29] MEDS ORDERED: Iron Sucrose 200 MG in NS 110 ML IVPB ONE (13:00)
--- NOTE | 2019-11-29 13:03 | NUR ---
NURSE NOTES: PT MADE AWARE OF DISCHARGE ORDER HOME WITH HOME HEALTH. PT AGREES TO DISCHARGE. PT TO CALL FAMILY FOR MARKETING COPYWRITER AND MAKE RN AWARE OF MARKETING COPYWRITER TIME.
--- NOTE | 2019-11-29 13:12 | Internal Med Progress Note ---
Subjective Date of Service: Nov 29, 2019 Physician Name Tony Reyes Attending Physician Morro Rodríguez MD Current Medications Medications (Trade) Dose Ordered Sig/Rosetta Route PRN Reason Start Time Stop Time Status Last Admin Dose Admin Acetaminophen (Tylenol) 650 mg Q4H PRN ORAL Mild Pain(Pain Scale 1-3)fever 11/22/19 08:30 12/22/19 08:29 11/26/19 07:02 Amlodipine Besylate (Norvasc) 5 mg BID ORAL 11/23/19 18:00 12/22/19 08:59 11/29/19 09:01 Dextrose (Dextrose 50%) 25 ml Q30M PRN IV Hypoglycemia 11/22/19 08:30 02/20/20 08:29 Dextrose (Dextrose 50%) 50 ml Q30M PRN IV Hypoglycemia 11/22/19 08:30 02/20/20 08:29 Epoetin Long (Epoetin Long-EPBX(NON ESRD)) 10,000 unit WED-WED-WED SUBQ 11/24/19 21:00 02/22/20 20:59 11/27/19 21:26 Glimepiride (AmaryL) 4 mg BID ORAL 11/22/19 09:00 12/22/19 08:59 11/29/19 09:01 Heparin Sodium (Porcine) (Heparin 5000 units/ml) 5,000 units EVERY 12 HOURS SUBQ 11/22/19 09:00 01/06/20 08:59 11/29/19 09:03 Hydralazine HCl (Apresoline) 50 mg Q8HR ORAL 11/22/19 14:00 02/20/20 13:59 11/29/19 06:10 Insulin Aspart (NovoLOG) BEFORE MEALS AND HS SUBQ 11/22/19 11:30 02/20/20 11:29 11/29/19 12:24 Iron Sucrose 200 mg/Sodium Chloride 120 ml @ 240 mls/hr ONCE ONCE IVPB 11/29/19 13:00 11/29/19 13:29 Losartan Potassium (Cozaar) 12.5 mg DAILY ORAL 11/26/19 16:00 12/26/19 15:59 11/29/19 09:01 Metoclopramide HCl (Reglan) 10 mg BEFORE MEALS ORAL 11/26/19 13:15 12/26/19 13:14 11/29/19 12:24 Nateglinide (Starlix) 120 mg TIAC ORAL 11/22/19 11:30 12/22/19 11:29 11/29/19 12:24 Ondansetron HCl (Zofran) 4 mg Q4H PRN IVP Nausea & Vomiting 11/22/19 08:30 12/22/19 08:29 Pantoprazole (Protonix) 40 mg DAILY ORAL 11/26/19 09:00 12/26/19 08:59 11/29/19 09:01 Polyethylene Glycol (Miralax) 17 gm BEDTIME ORAL 11/24/19 21:00 12/24/19 20:59 11/28/19 20:59 Simethicone (Mylicon) 160 mg QIDPRN PRN ORAL GAS 11/26/19 09:00 02/24/20 08:59 11/26/19 09:34 Sitagliptin Phosphate (Januvia) 50 mg DAILY ORAL 11/24/19 09:00 12/22/19 08:59 11/29/19 09:01 Allergies: Coded Allergies: No Known Allergies (Unverified , 11/21/19) ROS Limited/Unobtainable: No Constitutional: Reports: no symptoms HEENT: Reports: no symptoms Cardiovascular: Reports: no symptoms Respiratory: Reports: no symptoms Gastrointestinal/Abdominal: Reports: no symptoms Genitourinary: Reports: no symptoms Neurologic/Psychiatric: Reports: no symptoms Subjective 74 YO F admitted with chest pain. Now pneumonia and jamshid heart failure. Cover for Int Jon-DR Rodríguez. Objective Last Vital Signs Date Time Temp Pulse Resp B/P (MAP) Pulse Ox O2 Delivery O2 Flow Rate FiO2 11/29/19 12:00 97.2 73 18 154/67 (96) 97 11/29/19 09:00 Room Air Laboratory Tests Test 11/29/19 04:50 White Blood Count 7.4 K/UL (4.8-10.8) Red Blood Count 2.80 M/UL (4.20-5.40) L Hemoglobin 8.6 G/DL (12.0-16.0) L Hematocrit 25.5 % (37.0-47.0) L Mean Corpuscular Volume 91 FL (80-99) Mean Corpuscular Hemoglobin 30.8 PG (27.0-31.0) Mean Corpuscular Hemoglobin Concent 33.8 G/DL (32.0-36.0) Red Cell Distribution Width 13.8 % (11.6-14.8) Platelet Count 301 K/UL (150-450) Mean Platelet Volume 5.9 FL (6.5-10.1) L Neutrophils (%) (Auto) 61.1 % (45.0-75.0) Lymphocytes (%) (Auto) 23.4 % (20.0-45.0) Monocytes (%) (Auto) 8.1 % (1.0-10.0) Eosinophils (%) (Auto) 5.7 % (0.0-3.0) H Basophils (%) (Auto) 1.6 % (0.0-2.0) Erythrocyte Sedimentation Rate 121 MM/HR (0-30) H Sodium Level 140 MMOL/L (136-145) Potassium Level 4.4 MMOL/L (3.5-5.1) Chloride Level 109 MMOL/L (98-107) H Carbon Dioxide Level 19 MMOL/L (21-32) L Anion Gap 12 mmol/L (5-15) Blood Urea Nitrogen 29 mg/dL (7-18) H Creatinine 2.1 MG/DL (0.55-1.30) H Estimat Glomerular Filtration Rate 22.9 mL/min (>60) Glucose Level 104 MG/DL (74-106) Calcium Level 8.4 MG/DL (8.5-10.1) L Phosphorus Level 4.0 MG/DL (2.5-4.9) Magnesium Level 2.8 MG/DL (1.8-2.4) H Total Bilirubin 0.3 MG/DL (0.2-1.0) Aspartate Amino Transf (AST/SGOT) 66 U/L (15-37) H Alanine Aminotransferase (ALT/SGPT) 63 U/L (12-78) Alkaline Phosphatase 87 U/L (46-116) C-Reactive Protein, Quantitative 2.3 mg/dL (0.00-0.90) H Total Protein 7.1 G/DL (6.4-8.2) Albumin 3.0 G/DL (3.4-5.0) L Globulin 4.1 g/dL Albumin/Globulin Ratio 0.7 (1.0-2.7) L Intake and Output 11/28/19 11/29/19 19:00 07:00 Intake Total 775 ml Balance 775 ml Intake Oral 720 ml IV Total 55 ml # Voids 3 2 Objective PHYSICAL EXAMINATION: GENERAL: The patient is a well-developed and well-nourished female, no apparent distress. HEENT: Eyes, pupils equal and responsive to light and accommodation. Extraocular movements are intact. NECK: Supple without lymphadenopathy. CHEST: Lungs are clear to auscultation bilaterally without wheezes or rales. CARDIOVASCULAR: Regular rhythm and rate. S1, S2 are normal without murmurs, rubs, or gallops. ABDOMEN: Soft, nontender, and nondistended. Positive bowel sounds. No evidence of hepatosplenomegaly. Currently, no rebound or guarding noted. EXTREMITIES: Negative for clubbing, cyanosis, or edema. RECTAL: Not performed. GENITAL: Not performed. NEUROLOGIC: Cranial nerves II through XII are grossly intact without focal deficits. Motor strength is 5/5 bilaterally. Deep tendon reflexes are 2+, plantar. Assessment/Plan Assessment/Plan ASSESSMENT: This is a 74-year-old female: 1. Chest pain. 2. Right lower lobe pneumonia. 3. Congestive heart failure. 4. Renal failure. 5. Hypertension. 6. Diabetes type 2. 7. UTI-ESBL E.Coli TREATMENT: 1. Chest pain/congestive heart failure. Cardiology consultation has been obtained with Dr. Pool Santana. Serial troponin levels will be performed. The patient's current BNP is greater than 16,000. An echocardiogram LVEF=60%. Cardiolite stress test=non-ischemic 2. Right lower lobe pneumonia. Pulmonary consultation has been obtained with Dr. Rodrigo Marroquin. The patient has been started empirically on azithromycin and ceftriaxone. Follow recommendations of Pulmonary. 3. Renal failure. A Nephrology consultation has been obtained with Dr. Austin Malone. Follow recommendations of Dr. Malone. Renal failure may be secondary to long-standing diabetes versus acute on chronic renal failure. 4. Hypertension. Continue hydralazine and amlodipine as above. 5. Diabetes type 2. NovoLog sliding scale has been instituted. 6. S/P ABX=meropenem D#3/3 7. D/C home today 11/29/19 Tony Reyes MD Nov 29, 2019 13:12
[2019-11-29 13:21] VITALS: BP 154/67
--- NOTE | 2019-11-29 13:42 | NUR ---
NURSE NOTES: DR MOODY AT BEDSIDE AND DARIUS BOOTH IF SHE WOULD LIKE TO CONTINUE BACTRIM PO UPON DISCHARGE. PT HAS BEEN OFF ANTIBIOTICS. PER MD, D/C BACTRIM PRESCRIPTION. PRESCRIPTION WAS PLACED IN SHRED BIN.
--- NOTE | 2019-11-29 13:57 | Diagnostic Imaging Report ---
Indication: Dyspnea Technique: One view of the chest Comparison: 11/24/2019 Findings: Interstitial edema is again demonstrated, appears unchanged. No definite effusions. The heart size is borderline enlarged Impression: Unchanged, over 5 days, findings as above.
--- NOTE | 2019-11-29 16:11 | NUR ---
NURSE NOTES: PT'S GRANDSON PICKED UP PT VIA PRIVATE VEHICLE. RN EDUCATED PT AND GRANDSON ON DISCHARGE PAPERWORK AND MEDICATIONS, FOLLOW UP WITH PRIMARY MD IN 1-2 WEEKS, AND SIGNS AND SYMPTOMS OF EMERGENCY SYMPTOMS. BOTH VERBALIZED UNDERSTANDING. BELONGINGS CHECKED AT BEDSIDE AND ALL ACCOUNTED. EDUCATED PT TO BE VISITED BY HOME HEALTH NURSE. PT WAS DISCHARGED IN STABLE CONDITION.
--- NOTE | 2019-11-30 13:28 | Discharge Summary ---
Discharge Summary Discharge Summary _ DATE OF ADMISSION: 11/22/2019 DATE OF DISCHARGE: 11/29/2019 DISCHARGED BY: Dr. Rodríguez REASON FOR ADMISSION: 74 years old female with past medical history of hypertension, diabetes mellitus, CHF, presented with substernal chest discomfort worse on exertion, pain located in substernal region without radiation. No fever or chills. No back pain no abdominal pain no nausea vomiting diarrhea or dysuria. No sick contacts. Upon evaluation pulse oximetry was 90% on room air. Rapid COVID-19 was negative. Laboratory work-up revealed no leukocytosis hemoglobin 9.2 hematocrit 26.1 platelet count 221. Stable electrolytes BUN 48 creatinine 2.4. Glucose 228. Stable LFT troponin negative EKG revealed sinus rhythm no acute ischemic changes chest x-ray revealed no acute cardiopulmonary pathology. Patient received gentle IV hydration aspirin and admitted to telemetry floor for further management. CONSULTANTS: broadcast field supervisor Dr. Joana Varner pulmonary Dr. Lopez VIDALES specialist Dr. Hoffman skip miner Dr. Malone HOSPITAL COURSE: [] Patient is admitted at telemetry floor. Serial troponins were negative. EKG revealed no acute ischemic changes. Patient was ruled out for acute myocardial infarction. Echocardiogram demonstrated preserved ejection fraction of 60% no evidence of left ventricular hypertrophy. No evidence of wall motion abnormality. Right ve ntricular systolic pressure of 57 consistent with a moderate pulmonary hypertension. Patient subsequently undergone myocardial perfusion scan test as per broadcast field supervisor recommendation which revealed which was nonischemic. Calculated post-rest ejection fraction was greater than 70%. Chest pain was noncardiac most likely related most probably due to pneumonia. Patient was transferred to medical surgical floor. Venous duplex bilateral lower extremity revealed no evidence of acute DVT. Supplemental oxygen provided and titrated to keep pulse oximetry above 92%. DVT prophylaxis provided. Pulmonary toilet provided. COVID-19 on 2 different occasions negative. Blood cultures were negative. Urine culture revealed E. coli ESBL. Antibiotic provided as per ID recommendation.. Renal parameters electrolytes were closely monitored. Electrolytes corrected as needed nephrotoxic's were avoided. Renal ultrasound revealed no evidence of hydronephrosis. Creatinine trended down from initial 2.4 down to 2.1. Blood pressure was managed with calcium channel jose g and an ARB and remained stable. Volumes were closely monitored and hydralazine blood sugar was managed with Starlix Amaryl and sliding scale of insulin remained stable. Hemoglobin A1c 8.6 clearly not at goal. Diabetic diet and diabetic teaching provided.: Anti-glycemic regimen was optimized patient will need further optimization and frequent follow-up with her primary care provider as outpatient to bring blood sugar under control. Hemoglobin hematocrit were closely monitored with goal to keep hemoglobin above 7. Supportive care provided. Prior to discharge hemoglobin 8.6 hematocrit 25.5. Stool for occult blood was negative. Anemia work-up revealed evidence of anemia of chronic disease. Patient received IV iron while in the hospital x1. Blood pressure was managed with ARB and calcium channel jose g. DVT and GI prophylaxis provided. Patient was on Epogen. Bowel regimen instituted. Supportive care provided. Patient clinically stabilized and was ready for transfer for discharge home with home health services to follow. FINAL DIAGNOSES: Chest pain, most likely due to pneumonia -resolved Community-acquired pneumonia Acute kidney injury on chronic kidney disease UTI with E. coli ESBL Anemia Diabetes mellitus with hyperglycemia Congestive heart failure Moderate pulmonary hypertension Hypertension Obesity DISCHARGE MEDICATIONS: See Medication Reconciliation list. DISCHARGE INSTRUCTIONS: Patient was discharged home with home health services. Follow-up with primary care provider in 1 week. I have been assigned to dictate discharge summary for this account. Chelsi Castaneda NP Nov 30, 2019 13:28
== END 2019-11-29 16:05 | disposition home or self-care (01) | DRG 194 ==
LOC: EMR 23:34 → 2E 11-22 01:38 → EDBEDREQ 11-22 02:34 → 3E 11-23 20:29 → 4E 11-27 05:29
DX: J18.9 Pneumonia, unspecified organism (principal); I24.9 Acute ischemic heart disease, unspecified; N17.9 Acute kidney failure, unspecified; I13.0 Hypertensive heart and chronic kidney disease with heart failure and stage 1 through stage 4 chronic kidney disease, or unspecified chronic kidney disease; N39.0 Urinary tract infection, site not specified; Z16.12 Extended spectrum beta lactamase (ESBL) resistance; N18.9 Chronic kidney disease, unspecified; I50.9 Heart failure, unspecified; Z79.84 Long term (current) use of oral hypoglycemic drugs; Z79.82 Long term (current) use of aspirin; B96.20 Unspecified Escherichia coli [E. coli] as the cause of diseases classified elsewhere; E11.65 Type 2 diabetes mellitus with hyperglycemia; I27.20 Pulmonary hypertension, unspecified; E66.9 Obesity, unspecified; D50.9 Iron deficiency anemia, unspecified; I25.10 Atherosclerotic heart disease of native coronary artery without angina pectoris; I34.2 Nonrheumatic mitral (valve) stenosis; E11.21 Type 2 diabetes mellitus with diabetic nephropathy
CPT/HCPCS: 36415; 71045; 74018; 76770; 78452; 80048; 80053; 80061; 80076; 81001; 82270; 82378; 82550; 82607; 82728; 82746; 82962; 82977; 83036; 83540; 83550; 83615; 83735; 83880; 84100; 84300; 84439; 84443; 84481; 84484; 84550; 85007; 85025; 85044; 85060; 85610; 85651; 85730; 86140; 87040; 87086; 87181; 89050; 93005; 93017; 93306; 93970; 96361; 96365; 96368; 96375; 99285; J1815; J2405; J2785; J7030; U0002